=== PATIENT | male | born 1945 | race Caucasian/White ===

== ENCOUNTER 2022-04-03 10:29 | Emergency (ER) | payer MEDICARE, SELFPAY ==
[2022-04-03 10:52] VITALS: BP 132/57; PULSE 69; RESP 16; TEMP 36.2; O2SAT 100
--- NOTE | 2022-04-03 11:21 | ED.URI ---
HPI - URI/Sore Throat General Chief Complaint: Upper Respiratory Infection Stated Complaint: cough, runny nose, watery nose Time Seen by Provider: 04/03/22 11:21 Source: patient, RN notes reviewed and old records reviewed Mode of arrival: ambulatory Limitations: no limitations History of Present Illness HPI Narrative: 76 year old male accompanied by spouse with complaints of 4 days symptoms of cough, runny nose, with some sinus congestion. Patient denies any acute pain or headache, reports that this past has been taking Coricidin cold and flu medication for his symptoms with no acute fevers noted. reports that she had been ill with similar symptoms a few weeks ago. MD elicited complaint: cough, rhinorrhea and nasal congestion Onset (ago): day(s) (4) Pain scale (0-10): 3 Treatments prior to arrival: other (coricidan brand decogestant) Related Data Home Medications Medication Instructions Recorded Confirmed donepezil 10 mg tablet 10 mg PO DAILY 04/03/22 04/03/22 fenofibrate nanocrystallized 145 145 mg PO DAILY 04/03/22 04/03/22 mg tablet glipizide 10 mg tablet 10 mg PO DAILY 04/03/22 04/03/22 losartan 50 mg tablet 50 mg PO DAILY 04/03/22 04/03/22 metformin 1,000 mg tablet 1,000 mg PO DIRECTED 04/03/22 04/03/22 Allergies Allergy/AdvReac Type Severity Reaction Status Date / Time Penicillins Allergy Other Verified 04/03/22 11:15 Review of Systems Review of Systems: CONSTITUTIONAL: Denies malaise, chills, sweats, or fever. EYES: Denies visual changes, redness, or discharge. ENT: Reports rhinorrhea, congestion,no sinus pain, otalgia or sore throat. CARDIOVASCULAR: Denies chest pain, palpitations, or edema. RESPIRATORY: Reports cough.? Denies acute dyspnea. GASTROINTESTINAL: Denies abdominal pain, nausea, vomiting, diarrhea SKIN: Denies rash or itching. MUSCULOSKELETAL: Denies myalgia. NEUROLOGIC: Denies headache. All systems reviewed & are unremarkable except as noted in HPI and below PMFSH Past Medical History Medical History (Updated 04/03/22 @ 20:32 by Roxane Rollins NP) Diabetes Elevated cholesterol Gout Kidney stones Surgical History Surgical History (Updated 04/03/22 @ 20:34 by Roxane Rollins NP) H/O arthroscopy of right knee History of lithotripsy Social History Social History (Updated 04/03/22 @ 20:33 by Roxane Rollins NP) Smoking status: Never smoker Alcohol intake: unknown Substance use type: does not use Living arrangements: with family Gender identity (if verbalized by the patient): Male Comments At time of signature, agree with nursing past medical, surgical, social and family history. There is no relevant family history pertinent to the presenting complaint Exam Narrative: GENERAL: Well-appearing, well-nourished, and in no acute distress. HEAD: Normocephalic EYES: PERRLA, conjunctivae clear ENT: Nares clear, turbinates edematous and erythematous, clear discharge. Mucous membranes moist. TM pearly menendez with dull light reflex bilaterally; no tragal tenderness. Oropharynx erythematous without lesions. Tonsils red enlarged and without exudate, no drooling, no hoarseness, no trismus, uvula midline.some post nasal drainage noted NECK: Supple. lymphadenopathy CHEST: Clear to auscultation, breath sounds equal. No wheezing, rhonchi, rales, or stridor. No respiratory distress, speaks in full sentences. SAO2 100%on room air HEART: Regular rate and rhythm. No murmur heard. SKIN: Warm, dry, no rash. NEURO: Alert and oriented x3. PSYCH: Normal mood and affect Course Course Emergency Course: Patient is aware of diagnosis, understands and agrees to treatment plan.? Anticipatory guidance given.? Patient agrees to follow-up as directed and is aware of reasons to seek care at the emergency department. Portions of this record may have been created with voice recognition software Level of Care: Express Care Visit Vital Signs Vital sign
== END 2022-04-03 12:03 | disposition home or self-care (01) ==
PROVIDERS: Emergency Provider Registered Nurse; PCP Internal Medicine
DX: J02.0 Streptococcal pharyngitis (principal); E11.9 Type 2 diabetes mellitus without complications; E78.00 Pure hypercholesterolemia, unspecified; M10.9 Gout, unspecified; Z79.84 Long term (current) use of oral hypoglycemic drugs
CPT/HCPCS: 87880; 99203; G0463

== ENCOUNTER 2022-05-21 13:31 | Outpatient (CLI) | payer MEDICARE, SELFPAY ==
--- NOTE | ~2022-05-21 | US_ITS ---
EXAMINATION: US art doppler w press LE BI DATE: 05/21/2022 15:13 INDICATION: Peripheral arterial disease. TECHNIQUE: Segmental pressures and plethysmographic and Doppler waveforms of the brachial and lower e xtremity arteries were obtained. COMPARISON: None. FINDINGS: Right and left brachial artery pressures of 138 mm Hg and 140 mm Hg, respectively, are concordant (no rmal difference <= 30 mmHg). The right thigh, below knee, and ankle pressures could not be measured due to inability to cuff occlu de the arteries. The right ankle-brachial index (GIRISH) could not be measured (normal >= 0.9-1.0). The right great toe-brachial index (TBI) is 0.48 (normal >= 0.65). Arterial Doppler waveforms are triphas ic in common femoral artery and superficial femoral artery and biphasic in popliteal artery and at th e ankle. The left thigh, below knee, and ankle pressures could not be measured due to inability to cuff occlud e the arteries. The left GIRISH could not be measured. The left TBI is 0.79. Arterial Doppler waveforms are triphasic in common femoral artery, biphasic in superficial femoral artery, and at least triphasi c in popliteal artery and at the ankle. IMPRESSION: 1. Decreased right TBI and nondiagnostic right GIRISH, consistent with right-sided arterial occlusive di sease. 2. Normal left TBI and nondiagnostic left GIRISH. No significant left-sided arterial occlusive disease. Reviewed, dictated and finalized at location A. IMPRESSION: 1. Decreased right TBI and nondiagnostic right GIRISH, consistent with right-sided arterial occlusive disease. 2. Normal left TBI and nondiagnostic left GIRISH. No significant left-sided arteri al occlusive disease.
== END 2022-05-21 13:32 | disposition home or self-care (01) ==
PROVIDERS: PCP Internal Medicine; Visit Provider Podiatrist Foot & Ankle Surgery
DX: I73.9 Peripheral vascular disease, unspecified (principal)
CPT/HCPCS: 93923

== ENCOUNTER 2022-07-04 23:50 | Observation (INO) | payer MEDICARE, SELFPAY ==
--- NOTE | ~2022-07-04 | CT_ITS ---
EXAMINATION: CT brain wo con DATE: 07/05/2022 01:58 INDICATION: Slurred speech. Weakness. TECHNIQUE: Computed tomography (CT) of the head was performed without intravenous contrast. The mA wa s adjusted according to patient size. Iterative reconstruction technique was employed. The dose-lengt h product was 681.00 mGy-cm. COMPARISON: None FINDINGS: There is diffuse brain volume loss. There is no intracranial hemorrhage, acute infarction, or abnormal intracranial mass lesion. The ventricles are normal in size. There is mild mucosal thicke elaine in the paranasal sinuses. The mastoid air cells are normal. The orbits are normal. IMPRESSION: 1. Normal aging brain. Reviewed, dictated and finalized at location A. IMPRESSION: 1. Normal aging brain.
--- NOTE | ~2022-07-04 | XR_ITS ---
EXAMINATION: XR chest 1V DATE: 07/05/2022 02:09 INDICATION: Weakness. TECHNIQUE: A single frontal view of the chest was obtained. COMPARISON: None. FINDINGS: A calcified right lung nodule is consistent with old granulomatous disease. No pleural effu leanne or pneumothorax. The heart size is normal. IMPRESSION: 1. No acute cardiopulmonary disease. Reviewed, dictated and finalized at location A.
[2022-07-04 23:47] VITALS: BP 165/90; PULSE 74; RESP 15; TEMP 36.4; O2SAT 99
--- NOTE | 2022-07-04 23:53 | ECG_ITS ---
Measurements Intervals Woodrow Rate: 67 P: 9 WI: 179 QRS: 4 QRSD: 122 T: 21 QT: 404 QTc: 427 Interpretive Statements SINUS RHYTHM VENTRICULAR PREMATURE COMPLEX INTRAVENTRICULAR CONDUCTION DELAY EARLY PRECORDIAL R/S TRANSITION BORDERLINE ST ABNORMALITY- ANTEROLAT/HIGH LAT LEADS BASELINE ARTIFACT- I, III, AVL BORDERLINE ECG NO PREVIOUS ECG AVAILABLE FOR COMPARISON Electronically Signed On 07-05-2022 6:42:48 CDT by Pio Bhandari D.O.
[2022-07-04 23:58] LABS: Glucose Point of Care 153 mg/dl (65-105)
[2022-07-05 00:35] LABS: Basophils Absolute Auto 0.1 K/mm3 (0.0-0.1); Basophils Percent Auto 0.9 % (0.2-1.2); Eosinophils Absolute Auto 0.2 K/mm3 (0-0.3); Eosinophils Percent Auto 3.3 % (0-4.4); Hematocrit 39.4 % (42.0-52.0); Immature Granulocyte Absolute 0.04 K/mm3 (0.00-0.031); Immature Granulocyte Percent A 0.6 % (0-0.5); Lymphocytes Absolute Auto 1.21 K/mm3 (0.9-3.2); Lymphocytes Percent Auto 18.3 % (18.3-44.2); Mean Corpuscular Volume 84.9 fl (80-100); Mean Platelet Volume 10.5 fl (7.4-10.4); Monocytes Absolute Auto 0.6 K/mm3 (0.1-0.6); Monocytes Percent Auto 8.9 % (2.6-8.5); Neutrophils Absolute Auto 4.5 K/mm3 (1.3-6.7); Platelet Count Result 177 k/mm3 (150-375); Red Blood Count 4.64 M/mm3 (4.6-6.20); Red Cell Distribution Width 16.1 % (11.5-14.5); White Blood Count 6.6 K/mm3 (4.5-10.0)
[2022-07-05 01:26] LABS: Alanine Aminotransferase 22 U/L (6-50); Albumin Level 4.3 g/dL (3.5-5.1); Alkaline Phosphatase 36 U/L (38-126); Anion Gap 8 mmol/L (8-16); Aspartate Amino Transferase 29 U/L (17-59); Bilirubin,Total 0.6 mg/dL (0.2-1.3); Blood Urea Nitrogen 25 mg/dL (9-20); Calcium 9.3 mg/dL (8.4-10.2); Carbon Dioxide 24 mmol/L (22-30); Chloride 106 mmol/L (98-107); Estimated CRCL calculation 43 ml/min; Estimated Glomerular Filt Rate 50; Glucose 117 mg/dL (65-110); Magnesium 1.3 mg/dL (1.6-2.3); Potassium 3.5 mmol/L (3.4-5.0); Sodium 138 mmol/L (137-145)
[2022-07-05 01:37] LABS: Troponin I < 0.012 ng/mL (0.000-0.034)
--- NOTE | 2022-07-05 02:28 | ED.GENADULT ---
HPI - General Adult General Chief complaint: Fall Stated complaint: FALL, HYPOGLYCEMIA Time Seen by Provider: 07/05/22 00:15 History of Present Illness HPI narrative: Patient 76-year-old gentleman presents emerged department with chief complaint of hypoglycemia. The family noticed that he was not acting his normal self and noticed that there was a facial droop they called EMS when EMS arrived his blood sugar was in the 40s. The patient does have history of diabetes but is only on oral hypoglycemics. Patient is not on insulin. Patient was given dextrose by EMS and blood sugar has come up and the patient is back to his baseline. The patient has no chest pain or shortness of breath currently has no complaints Related Data Home Medications Medication Instructions Recorded Confirmed donepezil 10 mg tablet 10 mg PO DAILY 04/03/22 04/03/22 fenofibrate nanocrystallized 145 145 mg PO DAILY 04/03/22 04/03/22 mg tablet glipizide 10 mg tablet 10 mg PO DAILY 04/03/22 04/03/22 losartan 50 mg tablet 50 mg PO DAILY 04/03/22 04/03/22 metformin 1,000 mg tablet 1,000 mg PO DIRECTED 04/03/22 04/03/22 Allergies Allergy/AdvReac Type Severity Reaction Status Date / Time Penicillins Allergy Other Verified 07/04/22 23:56 Review of Systems Review of Systems: A 10 system review of systems was completed on the patient and is negative except for what is stated in the HPI. Nursing and ancillary documentation was reviewed. PMFSH Past Medical History Medical History Diabetes Elevated cholesterol Gout Kidney stones Surgical History Surgical History H/O arthroscopy of right knee History of lithotripsy Social History Social History Smoking status: Never smoker Alcohol intake: unknown Substance use type: does not use Living arrangements: with family Gender identity (if verbalized by the patient): Male Exam Narrative: GENERAL: Well-appearing, well-nourished, and in no acute distress. HEAD: Normocephalic, atraumatic. EYES: PERRLA and EOMI. ENT: Nares clear, no rhinorrhea or epistaxis. Mucous membranes moist. NECK: Supple. CHEST: Clear to auscultation. No respiratory distress. HEART: Regular rate and rhythm. No murmur heard. Normal peripheral pulses. ABDOMEN: Soft, nontender, nondistended, normal active bowel sounds. EXTREMITIES: Normal range of motion. No edema. SKIN: Warm, dry, no rash. NEURO: No focal deficits. Alert and oriented x3. PSYCH: Normal mood and affect. Course Course Emergency Course: Differential diagnosis includes CVA, electrolyte abnormality, infection, CVA/TIA Patient currently has an NIH of 0 and is back to his baseline neurological status. Patient was hypoglycemic at the time of symptoms symptoms consistent with hypoglycemia as the ultimate cause for his initial weakness. The patient is not on insulin and is only on oral hypoglycemics including a sulfonylurea. Due to the half-life of the sulfonylurea the patient's case will be discussed with the hospitalist for admission. Laboratory studies were obtained which showed a CBC with a white count of 6.6 hemoglobin was 13.0 electrolytes showed a creatinine of 1.4 magnesium of 1.3 Vital Signs Vital signs: Vital Signs Temperature 36.4 C L 07/04/22 23:47 Pulse Rate 74 07/04/22 23:47 Respiratory Rate 15 07/04/22 23:47 Blood Pressure 165/90 H 07/04/22 23:47 Pulse Oximetry 99 07/04/22 23:47 Oxygen Delivery Room Air 07/04/22 23:47 Temperature 36.4 C L 07/04/22 23:47 Pulse Rate 97 07/05/22 04:11 Respiratory Rate 17 07/05/22 04:11 Blood Pressure 147/64 H 07/05/22 04:11 Pulse Oximetry 97 07/05/22 04:11 Oxygen Delivery Room Air 07/04/22 23:47 Medical Decision Making MDM Narrative Medical decision making narrati
[2022-07-05 02:53] LABS: Glucose Point of Care 53 mg/dl (65-105)
[2022-07-05 03:02] LABS: Appearance Urine Clear (Clear); Bacteria Urine None Seen /hpf; Bilirubin Urine Negative (Negative); Blood Urine Negative (Negative); Color Urine Yellow (Yellow); Glucose Urine UA Negative (Negative); Ketones Urine Negative (Negative); Leukocyte Esterase Ur Negative LEU/UL (Negative); Nitrate Urine Negative (Negative); Non Pathogenic Casts 0-2; Protein Urine Trace mg/dL (Negative); RBC Urine 0-2 /hpf (0-2); Specific Grav Ur 1.018 (1.001-1.035); Squamous Epithelial Cell Urine None seen /hpf (Few); Urobilinogen Urine 0.2 mg/dL (<2.0); WBC Urine 0-5 /hpf; pH Urine 5.5 (5.0-9.0)
[2022-07-05] MEDS: MAGNESIUM SULF 2 GM/WATER 50ML 2 GM/50 ML BAG IVPB (03:13)
[2022-07-05 03:17] LABS: Add Urine Microscopic? NO
[2022-07-05] MEDS: DEXTROSE 5%/0.9% SOD CHL 1,000 ML 100 ML IV CONT ×2 (03:19→16:58)
[2022-07-05 04:11] VITALS: BP 147/64; PULSE 97; RESP 17; O2SAT 97
--- NOTE | 2022-07-05 04:25 | PM.IMHP ---
H&P: HPI History of Present Illness Date/Time: 07/05/22 04:25 Chief Complaint: Altered mental status Narrative: This is a 76-year-old male with past medical history significant for type diabetes mellitus, controlled with oral agents, hypertension, dyslipidemia. Patient was brought to the emergency room via EMS due to altered mental status fall and facial droop upon EMS arrival patient was found to have low blood sugar in the 40s, patient was given dextrose which brought his blood sugar to normal levels. Upon arrival to emergency room patient had another episode of hypoglycemia. At the present time patient feels that his back to his baseline he has been in his usual state of health up until this point, denies any nausea, vomiting, diarrhea, abdominal pain, fevers, rigors, chills, cough, no focal sensorimotor deficit. It was noted the patient's facial droop improved after correction of sugar. Preliminary workup CT of the head And chest x-ray was reported as: EXAMINATION: XR chest 1V DATE: 07/05/2022 02:09 INDICATION: Weakness. TECHNIQUE: A single frontal view of the chest was obtained. COMPARISON: None. FINDINGS: A calcified right lung nodule is consistent with old granulomatous disease. No pleural effusion or pneumothorax. The heart size is normal. IMPRESSION: 1. No acute cardiopulmonary disease. EXAMINATION: CT brain wo con DATE: 07/05/2022 01:58 INDICATION: Slurred speech. Weakness. TECHNIQUE: Computed tomography (CT) of the head was performed without intravenous contrast. The mA was adjusted according to patient size. Iterative reconstruction technique was employed. The dose-length product was 681.00 mGy-cm. COMPARISON: None FINDINGS: There is diffuse brain volume loss. There is no intracranial hemorrhage, acute infarction, or abnormal intracranial mass lesion. The ventricles are normal in size. There is mild mucosal thickening in the paranasal sinuses. The mastoid air cells are normal. The orbits are normal. IMPRESSION: 1. Normal aging brain. Review of Systems Review of Systems: Fall, altered mental status, facial droop, hypoglycemia Constitutional: Constitutional: Denies chills, Denies fatigue, Denies fever(s), Denies lethargy, Denies malaise, Denies night sweats, Denies poor appetite and Denies weakness Eyes: Eyes: Denies change in vision ENT: Denies dysphagia and Denies odynophagia Cardiovascular: Cardiovascular: Denies chest pain, Denies irregular heart rhythm, Denies leg edema, Denies palpitations and Denies dyspnea Respiratory: Respiratory: Denies cough and Denies excessive phlegm production Gastrointestinal: Gastrointestinal: Denies abdominal pain, Denies dyspepsia, Denies heartburn, Denies diarrhea, Denies nausea and Denies vomiting Genitourinary: Genitourinary: Denies dysuria Musculoskeletal: Musculoskeletal: Denies joint swelling and Denies muscle weakness Integumentary/Breasts: Skin/Breast: Denies rash Neurologic: Denies focal weakness and Denies Sensory deficit (Neuro) Psychiatric: Psychiatric: Reports no additional psychiatric complaints and Reports as per HPI Endocrine: Endocrine: Denies flushing, Denies heat intolerance, Denies polyphagia, Denies polydipsia and Denies palpitations Hematologic/Lymphatic: Hematologic/Lymphatic: Reports no additional hematologic/lymphatic complaints and Reports as per HPI Allergic/Immunologic: Allergic/Immunologic: Reports no additional allergic/immunologic complaints and Reports as per HPI PMFSH Past Medical History Medical History Diabetes Elevated cholesterol Gout Kidney stones Surgical History Surgical History H/O arthroscopy of right knee History of lithotripsy Social History Social History Smoking status: Never smoker Alcohol intake: molina
[2022-07-05 05:28] LABS: Glucose Point of Care 119 mg/dl (65-105)
[2022-07-05 05:31] LABS: Troponin I < 0.012 ng/mL (0.000-0.034)
--- NOTE | 2022-07-05 05:48 | ADMGEN ---
This patient, Conner Adams, was admitted to [facility] Surg Room 320-01. Patient/family oriented to hospital policies and general routines including ID bracelet, bed and alarms, visiting hours, pain management, procedures, bathroom and other care routines, personal items, smoking policy, room service/diet, and visiting hours. Information on how to activate the Rapid Response Team has been discussed. Patient/Family are encouraged to report perceived risks to care and to ask questions if they do not understand what they are told or what they should do.
[2022-07-05 05:52] VITALS: BMI 30.9
[2022-07-05 06:00] VITALS: BP 146/64; PULSE 72; RESP 14; TEMP 36.4; O2SAT 99
[2022-07-05 08:21] LABS: Glucose Point of Care 73 mg/dl (65-105)
[2022-07-05 10:17] VITALS: BMI 30.9
--- NOTE | 2022-07-05 10:20 | PM.IMPN ---
Progress Note: A&P Assessment and Plan (1) Hypoglycemia: Code(s): E16.2 - Hypoglycemia, unspecified Status: Acute Assessment and Plan: Place in observation Hold glipizide and metformin Currently on D5 half-normal saline Continue to monitor (2) Diabetes: Code(s): E11.9 - Type 2 diabetes mellitus without complications Status: Acute Assessment and Plan: Holding glipizide and metformin (3) Gout: Code(s): M10.9 - Gout, unspecified Status: Acute Assessment and Plan: Stable (4) Fall: Code(s): W19.XXXA - Unspecified fall, initial encounter Status: Acute Assessment and Plan: Mechanical fall Likely secondary to hypoglycemic episode Fall precautions (5) Altered mental status: Code(s): R41.82 - Altered mental status, unspecified Status: Acute Assessment and Plan: Resolved Subjective Date/time seen: 07/05/22 10:20 Interval history: No complaints Exam Narrative: Patient is laying in a stretcher Const: General: cooperative, comfortable, no acute distress, well developed, alert, awake, average body habitus and other (Well-appearing) Nutritional Appearance: average body habitus Orientation/consciousness: patient oriented x3 HENMT: Head: normal to inspection, normocephalic and atraumatic Ears: hearing grossly normal bilaterally Face/Nose/Sinus: normal facial exam Face and sinus: normal facial exam Eyes: General: appearance normal, both eyes and all related structures Pupils: Equal, round and reactive pupils present EOM: EOMs intact bilaterally Neck: Neck: full ROM, no lymphadenopathy and no JVD Thyroid: thyroid normal Lymphatic: no lymphadenopathy noted Resp: Effort & Inspection: normal respiratory effort and able to speak in complete sentences Auscultation: clear to auscultation bilaterally Cardio: Jugular venous distension: no JVD Rate: regular rate Rhythm: regular rhythm Heart sounds: S1 normal heart sound present and S2 normal heart sound present : General: Yes deferred Skin: Rashes: no rashes Wounds: no wounds Neuro: General: patient oriented x3, CN's II-XI intact bilaterally and Unable to assess gait Cranial nerves: Yes CN's II-XII intact bilaterally and Yes Equal, round and reactive pupils present Cognition (Neuro): normal cognition Speech: normal speech Gait exam (Neuro): Normal gait present and Unable to assess gait Motor exam (neuro): 5/5 motor strength present throughout Sensory Exam: No Sensory deficit (Neuro) Extrem: General: normal to inspection, full ROM, no joint enlargement and no pedal edema Objective Data Vital Signs Vital Signs: Vital Signs - 24 hr 07/04/22 23:47 07/05/22 04:11 07/05/22 06:00 Temperature 97.5 F L 97.6 F Pulse Rate 74 97 72 Respiratory Rate 15 17 14 Blood Pressure 165/90 H 147/64 H 146/64 H Pulse Oximetry 99 97 99 Oxygen Delivery Room Air Intake/Output Intake/Output: Intake & Output 07/02/22 07/03/22 07/04/22 07/05/22 23:59 23:59 23:59 23:59 Intake Total 414 Balance 414 Meds/Results Medications: Active Medications Generic Name Dose Route Start Last Admin Trade Name Freq PRN Reason Stop Dose Admin Dextrose 12.5 gm 07/05/22 04:37 Dextrose 50% 25 Gm/50 Ml Syringe IV PUSH PRN PRN Hypoglycemia Protocol Donepezil HCl 10 mg 07/05/22 21:00 Donepezil Hcl 10 Mg Tablet PO HS JITENDRA Fenofibrate 145 mg 07/05/22 09:00 Fenofibrate Nanocrystallized 145 Mg Tablet PO DAILY JITENDRA Glucagon 1 mg 07/05/22 04:37 Glucagon For Inj 1 Mg Vial IM PRN PRN Hypoglycemia Protocol Glucose 15 gm 07/05/22 04:37 Glucose Oral Gel 15 Gm Of Glucse In 37.5 Gm Tube PO PRN PRN Hypoglycemia Protocol Dextrose/Sodium Chloride 1,000 mls @ 100 mls/hr 07/05/22 03:00 07/05/22 03:19 Dextrose 5% Sodium Chloride 0.9% IV CONT 100 mls/hr .Q10H JITENDRA Administration Dextrose 1,000
[2022-07-05] MEDS: LOSARTAN POTASSIUM 50 MG TABLET PO (10:40)
[2022-07-05] MEDS: FENOFIBRATE NANOCRYSTALLIZED 145 MG TABLET PO (10:40)
[2022-07-05] MEDS: metFORMIN HCL 500 MG TABLET 1000 MG PO ×2 (10:40→18:57)
[2022-07-05 12:03] LABS: Glucose Point of Care 114 mg/dl (65-105)
[2022-07-05 13:29] VITALS: BMI 30.9
[2022-07-05 14:00] VITALS: BP 139/66; PULSE 68; RESP 18; TEMP 36.1; O2SAT 99
[2022-07-05 18:45] LABS: Glucose Point of Care 204 mg/dl (65-105)
[2022-07-05 20:00] VITALS: PULSE 68; RESP 18; O2SAT 99
[2022-07-05] MEDS: DONEPEZIL HCL 10 MG TABLET PO (20:19)
--- NOTE | 2022-07-05 20:35 | PC.NURSE ---
Pt took out IV this morning. Pt has two skin tears on left hand. Mepelex was placed on hand. Pt has hx of dementia. Pt is stand by assist with ambulation. Pt has been compliant with care. Pt was monitored for any changes in status this shift.
[2022-07-05 22:00] VITALS: BP 148/64; PULSE 71; RESP 18; TEMP 35.9; O2SAT 96
[2022-07-05 23:28] LABS: Glucose Point of Care 146 mg/dl (65-105)
[2022-07-06 01:57] LABS: Glucose Point of Care 100 mg/dl (65-105)
[2022-07-06] MEDS: DEXTROSE 5%/0.9% SOD CHL 1,000 ML 100 ML IV CONT (03:00)
[2022-07-06 04:44] LABS: Glucose Point of Care 93 mg/dl (65-105)
[2022-07-06 05:58] VITALS: BP 167/61; PULSE 65; RESP 18; TEMP 35.9; O2SAT 99
[2022-07-06 06:43] LABS: Basophils Absolute Auto 0.1 K/mm3 (0.0-0.1); Basophils Percent Auto 1.1 % (0.2-1.2); Eosinophils Absolute Auto 0.2 K/mm3 (0-0.3); Eosinophils Percent Auto 4.6 % (0-4.4); Hematocrit 39.2 % (42.0-52.0); Hemoglobin 12.9 g/dL (14.0-18.0); Immature Granulocyte Absolute 0.03 K/mm3 (0.00-0.031); Immature Granulocyte Percent A 0.6 % (0-0.5); Lymphocytes Absolute Auto 0.96 K/mm3 (0.9-3.2); Lymphocytes Percent Auto 20.2 % (18.3-44.2); Mean Corpuscular HGB Conc 32.9 g/dl (32-36); Mean Corpuscular Hemoglobin 27.6 pg (26-34); Mean Corpuscular Volume 83.9 fl (80-100); Monocytes Absolute Auto 0.4 K/mm3 (0.1-0.6); Monocytes Percent Auto 9.1 % (2.6-8.5); Neutrophils Absolute Auto 3.1 K/mm3 (1.3-6.7); Neutrophils Percent Auto 64.4 % (45.5-73.1); Platelet Count Result 188 k/mm3 (150-375); Red Blood Count 4.67 M/mm3 (4.6-6.20); Red Cell Distribution Width 15.7 % (11.5-14.5); White Blood Count 4.8 K/mm3 (4.5-10.0)
[2022-07-06 06:53] LABS: Anion Gap 9 mmol/L (8-16); Blood Urea Nitrogen 14 mg/dL (9-20); Calcium 8.7 mg/dL (8.4-10.2); Carbon Dioxide 23 mmol/L (22-30); Chloride 108 mmol/L (98-107); Estimated CRCL calculation 74 ml/min; Estimated Glomerular Filt Rate > 60; Glucose 133 mg/dL (65-110); Potassium 4.3 mmol/L (3.4-5.0); Sodium 140 mmol/L (137-145)
[2022-07-06 07:43] LABS: Glucose Point of Care 138 mg/dl (65-105)
[2022-07-06] MEDS: metFORMIN HCL 500 MG TABLET 1000 MG PO (08:00)
[2022-07-06] MEDS: FENOFIBRATE NANOCRYSTALLIZED 145 MG TABLET PO (08:00)
[2022-07-06] MEDS: LOSARTAN POTASSIUM 50 MG TABLET PO (08:00)
[2022-07-06 11:19] LABS: Glucose Point of Care 199 mg/dl (65-105)
--- NOTE | 2022-07-06 11:36 | PM.DS ---
DS: Admitting Diagnosis Discharge Date July 06, 2022 Admitting Diagnosis hypoglycemia DS: Discharge Diagnosis Discharge Diagnosis (1) Hypoglycemia: Code(s): E16.2 - Hypoglycemia, unspecified Status: Acute Assessment and Plan: Place in observation Hold glipizide and metformin Currently on D5 half-normal saline Continue to monitor (2) Diabetes: Code(s): E11.9 - Type 2 diabetes mellitus without complications Status: Acute Assessment and Plan: Holding glipizide and metformin (3) Gout: Code(s): M10.9 - Gout, unspecified Status: Acute Assessment and Plan: Stable (4) Fall: Code(s): W19.XXXA - Unspecified fall, initial encounter Status: Acute Assessment and Plan: Mechanical fall Likely secondary to hypoglycemic episode Fall precautions (5) Altered mental status: Code(s): R41.82 - Altered mental status, unspecified Status: Acute Assessment and Plan: Resolved DS: Summary Hospital Course Hospital Course: admitted for hypoglycemia, secondary to glipizide at home. Medications not on home med list the patient apparently does take this at home per family. This was stopped and blood sugars are appropriate he can be discharged. Time Spent with Patient Time attestation: Total time spent providing and/or coordinating discharge services: Exam Narrative: Patient is laying in a stretcher Const: General: cooperative, comfortable, no acute distress, well developed, alert, awake, average body habitus and other (Well-appearing) Nutritional Appearance: average body habitus Orientation/consciousness: patient oriented x3 HENMT: Head: normal to inspection, normocephalic and atraumatic Ears: hearing grossly normal bilaterally Face/Nose/Sinus: normal facial exam Face and sinus: normal facial exam Eyes: General: appearance normal, both eyes and all related structures Pupils: Equal, round and reactive pupils present EOM: EOMs intact bilaterally Neck: Neck: full ROM, no lymphadenopathy and no JVD Thyroid: thyroid normal Lymphatic: no lymphadenopathy noted Resp: Effort & Inspection: normal respiratory effort and able to speak in complete sentences Auscultation: clear to auscultation bilaterally Cardio: Jugular venous distension: no JVD Rate: regular rate Rhythm: regular rhythm Heart sounds: S1 normal heart sound present and S2 normal heart sound present : General: Yes deferred Skin: Rashes: no rashes Wounds: no wounds Neuro: General: patient oriented x3, CN's II-XI intact bilaterally and Unable to assess gait Cranial nerves: Yes CN's II-XII intact bilaterally and Yes Equal, round and reactive pupils present Cognition (Neuro): normal cognition Speech: normal speech Gait exam (Neuro): Normal gait present and Unable to assess gait Motor exam (neuro): 5/5 motor strength present throughout Sensory Exam: No Sensory deficit (Neuro) Extrem: General: normal to inspection, full ROM, no joint enlargement and no pedal edema DS: Data Data Completed and Pending Labs on day of discharge: Labs from last 24 hours 07/06/22 07/06/22 07/06/22 11:10 07:24 06:20 WBC 4.8 RBC 4.67 Hgb 12.9 L Hct 39.2 L MCV 83.9 MCH 27.6 MCHC 32.9 RDW 15.7 H Plt Count 188 MPV 11.0 H Immature Gran % (Auto) 0.6 H Neut % (Auto) 64.4 Lymph % (Auto) 20.2 Barbour % (Auto) 9.1 H Eos % (Auto) 4.6 H Baso % (Auto) 1.1 Lymph # (Auto) 0.96 [place]bour # (Auto) 0.4 Eos # (Auto) 0.2 Baso # (Auto) 0.1 Abs Immat Gran (auto) 0.03 Absolute Neuts (auto) 3.1 Absolute Nucleated RBC 0.0 Nucleated RBC % 0.0 Sodium 140 Potassium 4.3 Chloride 108 H Carbon Dioxide 23 Anion Gap 9 BUN 14 D Creatinine 0.90 Estim Creat Clear Calc 74 Estimated GFR > 60 Glucose 133 H POC Capillary Glucose 199 H 138 H Calcium 8.7 07/06/22 07/06/22 07/05/22 04:41 00:29 21:33
[2022-07-06 13:37] VITALS: BP 130/75; PULSE 86; RESP 20; TEMP 36.2; O2SAT 97
[2022-07-06 15:30] LABS: Glucose Point of Care 148 mg/dl (65-105)
== END 2022-07-06 16:46 | disposition home or self-care (01) ==
LOC: ANHED 07-05 04:36 → ANH3MEDSUR 07-05 05:26
PROVIDERS: Admitting Provider Internal Medicine; Emergency Provider Emergency Medicine; PCP Internal Medicine; Visit Provider Chiropractor
DX: E11.649 Type 2 diabetes mellitus with hypoglycemia without coma (principal); M10.9 Gout, unspecified; W19.XXXA Unspecified fall, initial encounter; R41.82 Altered mental status, unspecified; I10 Essential (primary) hypertension; E78.5 Hyperlipidemia, unspecified; R53.1 Weakness; Z79.84 Long term (current) use of oral hypoglycemic drugs; Z79.899 Other long term (current) drug therapy
CPT/HCPCS: 36415; 70450; 71045; 80048; 80053; 81003; 82948; 83735; 84484; 85025; 93005; 96361; 96365; 99285; A9270; G0378; J3475; J7042

== ENCOUNTER 2022-08-17 09:06 | Emergency (ER) | payer MEDICARE, SELFPAY ==
--- NOTE | 2022-08-17 09:08 | ED.GENADULT ---
HPI - General Adult General Chief complaint: Ear Stated complaint: FLUID IN BOTH EARS Time Seen by Provider: 08/17/22 09:25 Source: patient, RN notes reviewed and old records reviewed Mode of arrival: ambulatory Limitations: no limitations History of Present Illness HPI narrative: 76-year-old male presents to the [facility] with concerns for fluid draining from his ears Every morning for the last 3 mornings. Patient's reports that it only happens in the morning, no drainage during the day. States that she saw a Q-tips sitting on the nightstand yesterday with blood on it. denies any upper respiratory symptoms recently. Denies fevers. Denies headaches. Onset (ago): day(s) (3) Treatments prior to arrival: none Related Data Home Medications Medication Instructions Recorded Confirmed donepezil 10 mg tablet 10 mg PO HS 04/03/22 08/17/22 fenofibrate nanocrystallized 145 145 mg PO DAILY 04/03/22 08/17/22 mg tablet losartan 50 mg tablet 50 mg PO DAILY 04/03/22 08/17/22 metformin 1,000 mg tablet 1,000 mg PO BID 04/03/22 08/17/22 doxycycline monohydrate 100 mg 100 mg PO BID 07/05/22 08/17/22 capsule Allergies Allergy/AdvReac Type Severity Reaction Status Date / Time Penicillins Allergy Other Verified 08/17/22 09:19 Sulfa (Sulfonamide Allergy Nausea and Verified 08/17/22 09:19 Antibiotics) Vomiting Review of Systems Review of Systems: All systems reviewed & are unremarkable except as noted in HPI and below Constitutional: Constitutional: Reports no additional constitutional complaints Eyes: Eyes: Reports no additional eye complaints ENT: Reports as per HPI and Reports ear discharge Cardiovascular: Cardiovascular: Reports no additional cardiovascular complaints, Denies chest pain and Denies dyspnea Respiratory: Respiratory: Reports no additional respiratory complaints, Denies chest congestion, Denies cough and Denies dyspnea Gastrointestinal: Gastrointestinal: Reports no additional gastrointestinal complaints, Denies abdominal pain, Denies nausea and Denies vomiting Musculoskeletal: Musculoskeletal: Reports no additional musculoskeletal complaints Integumentary/Breasts: Skin/Breast: Reports system reviewed and no additional complaints, except as docu Neurologic: Reports system reviewed and no additional complaints, except as documented Psychiatric: Psychiatric: Reports no additional psychiatric complaints Allergic/Immunologic: Allergic/Immunologic: Reports no additional allergic/immunologic complaints PMFSH Past Medical History Medical History Diabetes Elevated cholesterol Gout Kidney stones Surgical History Surgical History H/O arthroscopy of right knee History of lithotripsy Social History Social History Smoking status: Never smoker Alcohol intake: never Substance use: never Substance use type: does not use Lack of Transportation: No Lack of Food: Never True Current Housing: I Have Housing Concerned About Future Housing: No Difficulty Paying Gas/Electric Bills: No Difficulty Paying for Meds: No Currently Unemployed: No Education: Associate Degree Difficulty w/ Childcare or Family Care: No Living arrangements: with family Gender identity (if verbalized by the patient): Male Spiritual care concerns: No Comments At the time of my signature, I reviewed and agree with the nursing past medical, surgical, social, and family history. There is no relevant family history pertinent to the patient complaint. Exam Const: General: cooperative, healthy appearing, comfortable, no acute distress, well developed, alert and well nourished Nutritional Appearance: well nourished Orientation/consciousness: patient oriented x3 Limitations: no limitations HENMT: Head: normal to inspection Ears: hearing gr
[2022-08-17 09:13] VITALS: BP 128/91; PULSE 64; RESP 16; TEMP 35.9; O2SAT 99
== END 2022-08-17 09:35 | disposition home or self-care (01) ==
PROVIDERS: Emergency Provider Nurse Practitioner; PCP Internal Medicine
DX: S00.411A Abrasion of right ear, initial encounter (principal); X58.XXXA Exposure to other specified factors, initial encounter; E11.9 Type 2 diabetes mellitus without complications; E78.00 Pure hypercholesterolemia, unspecified; M10.9 Gout, unspecified
CPT/HCPCS: 99213; G0463

== ENCOUNTER 2022-12-23 08:36 | Emergency (ER) | payer MEDICARE, SELFPAY ==
--- NOTE | 2022-12-23 08:43 | ED.URI ---
HPI - URI/Sore Throat General Chief Complaint: Upper Respiratory Infection Stated Complaint: cough,runny nose,headache,body aches Time Seen by Provider: 12/23/22 08:43 Source: patient Mode of arrival: ambulatory Limitations: no limitations History of Present Illness HPI Narrative: Patient is a 77-year-old male who presents with 5 days of body aches, congestion, headache and cough. Patient has been taking Tylenol/Advil combo for body aches and headache with mild relief. Unsure if he ever had a fever. Patient has not taken any other medication for symptomatic relief due to not wanting to cause interactions with donepezil. Related Data Home Medications Medication Instructions Recorded Confirmed donepezil 10 mg tablet 10 mg PO HS 04/03/22 12/23/22 fenofibrate nanocrystallized 145 145 mg PO DAILY 04/03/22 12/23/22 mg tablet losartan 50 mg tablet 50 mg PO DAILY 04/03/22 12/23/22 metformin 1,000 mg tablet 1,000 mg PO BID 04/03/22 12/23/22 cholecalciferol (vitamin D3) 25 25 mcg PO DAILY 12/23/22 12/23/22 mcg (1,000 unit) capsule (Vitamin D3) cyanocobalamin (vitamin B-12) 2,500 mcg sublingual DAILY 12/23/22 12/23/22 2,500 mcg sublingual tablet (Vitamin B-12) Allergies Allergy/AdvReac Type Severity Reaction Status Date / Time Penicillins Allergy Other Verified 12/23/22 08:55 Sulfa (Sulfonamide Allergy Nausea and Verified 12/23/22 08:55 Antibiotics) Vomiting Review of Systems Review of Systems: All systems reviewed & are unremarkable except as noted in HPI and below Constitutional: Constitutional: Reports body ache(s), Denies chills, Denies fatigue, Denies fever(s), Reports headache(s), Denies malaise and Denies weakness Eyes: Eyes: Denies blurry vision, Denies itchy eyes and Denies loss of vision ENT: Denies otalgia, Denies headache(s), Reports nasal congestion, Denies sinus pain and Denies sore throat Cardiovascular: Cardiovascular: Denies chest pain, Denies irregular heart rhythm and Denies dyspnea Respiratory: Respiratory: Reports cough and Denies dyspnea Gastrointestinal: Gastrointestinal: Denies abdominal pain, Denies diarrhea, Denies nausea and Denies vomiting Musculoskeletal: Musculoskeletal: Denies back pain, Denies myalgias and Denies arthralgias Integumentary/Breasts: Skin/Breast: Denies pruritus and Denies rash Neurologic: Denies headache(s), Denies loss of vision and Denies weakness Psychiatric: Psychiatric: Reports no additional psychiatric complaints Endocrine: Endocrine: Denies fatigue Allergic/Immunologic: Allergic/Immunologic: Denies itchy eyes PMFSH Past Medical History Medical History Diabetes Elevated cholesterol Gout Kidney stones Surgical History Surgical History H/O arthroscopy of right knee History of lithotripsy Social History Social History Smoking status: Never smoker Alcohol intake: never Substance use: never Substance use type: does not use Lack of Transportation: No Lack of Food: Never True Current Housing: I Have Housing Concerned About Future Housing: No Difficulty Paying Gas/Electric Bills: No Difficulty Paying for Meds: No Currently Unemployed: No Education: Associate Degree Difficulty w/ Childcare or Family Care: No Living arrangements: with family Gender identity (if verbalized by the patient): Male Spiritual care concerns: No Comments At time of signature, agree with nursing past medical, surgical, social and family history. There is no relevant family history pertinent to the presenting complaint. Exam Const: General: cooperative, healthy appearing, comfortable, no acute distress and well nourished Nutritional Appearance: well nourished Orientation/consciousness: patient oriented x3 Limitations: no limitations HENMT: Head: normal to inspe
[2022-12-23 08:58] VITALS: BP 168/60; PULSE 65; RESP 16; TEMP 35.7; O2SAT 100
== END 2022-12-23 09:40 | disposition home or self-care (01) ==
PROVIDERS: Emergency Provider Nurse Practitioner Family; PCP Internal Medicine
DX: J10.1 Influenza due to other identified influenza virus with other respiratory manifestations (principal); Z20.822 Contact with and (suspected) exposure to COVID-19; E11.9 Type 2 diabetes mellitus without complications; Z79.84 Long term (current) use of oral hypoglycemic drugs; E78.00 Pure hypercholesterolemia, unspecified; M10.9 Gout, unspecified
CPT/HCPCS: 87426; 87804; 99213; C9803; G0463

== ENCOUNTER 2023-12-12 00:56 | Emergency (ER) | payer MEDICARE, SELFPAY ==
[2023-12-12] VITALS (13 sets, daily range): BP systolic 145–189; BP diastolic 57–71; PULSE 62–68; RESP 12–22; TEMP 36.4; O2SAT 98–100
--- NOTE | ~2023-12-12 | XR_ITS ---
Portable chest x-ray Comparison: 07/05/2022 Clinical History: Chest pain Findings: Lungs are clear, without focal consolidation or pleural effusion. Cardiomediastinal silho uette is stable. Bones and soft tissues are unremarkable. Impression: Clear lungs. Reviewed, dictated and finalized at location . Impression: Clear lungs.
--- NOTE | 2023-12-12 00:57 | ECG_ITS ---
Test Date: 2023-12-12 01:04:24 Measurements Intervals [place] Rate: 65 P: 27 SD: 180 QRS: 19 QRSD: 110 T: 40 QT: 402 QTc: 420 Interpretive Statements SINUS RHYTHM No previous ECG available for comparison Electronically Signed On 12-12-2023 14:30:37 CDT by Raj Posadas M.D.
[2023-12-12 01:20] LABS: Basophils Absolute Auto 0.1 K/mm3 (0.0-0.1); Basophils Percent Auto 1.5 % (0.2-1.2); Eosinophils Absolute Auto 0.3 K/mm3 (0-0.3); Eosinophils Percent Auto 4.6 % (0-4.4); Hematocrit 38.4 % (42.0-52.0); Hemoglobin 12.8 g/dL (14.0-18.0); Immature Granulocyte Absolute 0.07 K/mm3 (0.00-0.031); Immature Granulocyte Percent A 1.1 % (0-0.5); Lymphocytes Absolute Auto 1.63 K/mm3 (0.9-3.2); Lymphocytes Percent Auto 24.7 % (18.3-44.2); Mean Corpuscular HGB Conc 33.3 g/dl (32-36); Mean Corpuscular Hemoglobin 29.6 pg (26-34); Mean Corpuscular Volume 88.7 fl (80-100); Mean Platelet Volume 10.7 fl (7.4-10.4); Monocytes Absolute Auto 0.5 K/mm3 (0.1-0.6); Monocytes Percent Auto 7.1 % (2.6-8.5); Platelet Count Result 211 k/mm3 (150-375); Red Blood Count 4.33 M/mm3 (4.6-6.20); Red Cell Distribution Width 15.3 % (11.5-14.5); White Blood Count 6.6 K/mm3 (4.5-10.0)
[2023-12-12 01:29] LABS: Alanine Aminotransferase 13 U/L (6-50); Albumin Level 4.4 g/dL (3.5-5.1); Alkaline Phosphatase 55 U/L (38-126); Anion Gap 9 mmol/L (4-12); Aspartate Amino Transferase 22 U/L (17-59); Bilirubin,Total 0.7 mg/dL (0.2-1.3); Blood Urea Nitrogen 25 mg/dL (9-20); Calcium 9.8 mg/dL (8.4-10.2); Carbon Dioxide 29 mmol/L (22-30); Chloride 103 mmol/L (98-107); Estimated Glomerular Filt Rate 59; Glucose 137 mg/dL (65-110); INR 0.9; Lipase 89 U/L (23-300); Potassium 3.7 mmol/L (3.4-5.0); Prothrombin Time 12.7 Seconds (11.1-14.7); Sodium 141 mmol/L (137-145)
[2023-12-12 01:30] LABS: Partial Thromboplastin Time 29.5 Seconds (22.3-36.8)
[2023-12-12 01:40] LABS: Troponin I < 0.012 ng/mL (0.000-0.034)
--- NOTE | 2023-12-12 03:25 | ED.CHESTPAIN ---
HPI - Chest Pain General Chief Complaint: Chest Pain Stated Complaint: chest pain Time Seen by Provider: 12/12/23 02:03 History of Present Illness HPI narrative: 78-year-old male with a past medical history of Parkinson's dementia, hypertension. Today patient presents to the emergency department with a chief complaint of sudden onset chest discomfort and shortness of breath. This has since resolved prior to arrival to the emergency department. He states that he was in bed with his when he started feeling this way. Denies any jaw pain, chest pain, shortness breath, nausea, vomiting, diarrhea, constipation. He was otherwise in his normal state of health. Denies any trauma, recent injuries, illnesses or new medication changes. Related Data Home Medications Medication Instructions Recorded Confirmed donepezil 10 mg tablet 10 mg PO HS 04/03/22 12/23/22 fenofibrate nanocrystallized 145 145 mg PO DAILY 04/03/22 12/23/22 mg tablet losartan 50 mg tablet 50 mg PO DAILY 04/03/22 12/23/22 metformin 1,000 mg tablet 1,000 mg PO BID 04/03/22 12/23/22 cholecalciferol (vitamin D3) 25 25 mcg PO DAILY 12/23/22 12/23/22 mcg (1,000 unit) capsule (Vitamin D3) cyanocobalamin (vitamin B-12) 2,500 mcg sublingual DAILY 12/23/22 12/23/22 2,500 mcg sublingual tablet (Vitamin B-12) Allergies Allergy/AdvReac Type Severity Reaction Status Date / Time Penicillins Allergy Other Verified 12/12/23 01:03 Sulfa (Sulfonamide Allergy Nausea and Verified 12/12/23 01:03 Antibiotics) Vomiting Review of Systems Review of Systems: As reviewed above in HPI [facility] Past Medical History Medical History Diabetes Elevated cholesterol Gout Kidney stones Surgical History Surgical History H/O arthroscopy of right knee History of lithotripsy Social History Social History Smoking status: Never smoker Alcohol intake: never Substance use: never Substance use type: does not use Lack of Transportation: No Lack of Food: Never True Current Housing: I Have Housing Concerned About Future Housing: No Difficulty Paying Gas/Electric Bills: No Difficulty Paying for Meds: No Currently Unemployed: No Education: Associate Degree Difficulty w/ Childcare or Family Care: No Living arrangements: with family Gender identity (if verbalized by the patient): Male Spiritual care concerns: No Exam Narrative: GENERAL: [Well-appearing, well-nourished, and in no acute distress.] HEAD: [Normocephalic, atraumatic.] EYES: [PERRLA and EOMI.] ENT: Nares clear, no rhinorrhea or epistaxis. Mucous membranes moist. NECK: Supple. CHEST: [Clear to auscultation. No respiratory distress.] HEART: [Regular rate and rhythm]. No murmur heard. [Normal peripheral pulses.] ABDOMEN: [Soft, nondistended], [nontender], [No rigidity or guarding] EXTREMITIES: Normal range of motion. [No edema.] SKIN: Warm, dry, no rash. NEURO: [No focal deficits]. Alert and oriented [x3.] PSYCH: [Normal mood and affect.] Course Vital Signs Vital signs: Vital Signs Temperature 36.4 C 12/12/23 01:00 Pulse Rate 65 12/12/23 01:00 Respiratory Rate 18 12/12/23 01:00 Blood Pressure 189/57 H 12/12/23 01:00 Pulse Oximetry 100 12/12/23 01:00 Oxygen Delivery Room Air 12/12/23 01:00 Temperature 36.4 C 12/12/23 01:00 Pulse Rate 62 12/12/23 03:09 Respiratory Rate 12 12/12/23 03:09 Blood Pressure 145/66 H 12/12/23 01:55 Pulse Oximetry 100 12/12/23 03:09 Oxygen Delivery Room Air 12/12/23 01:57 MDM - Chest Pain MDM Narrative Medical decision making narrative: 78-year-old male with a history of hypertension Alzheimer's presenting to the emergency depart with a chief complaint of chest pain shortness a breath which have now st
== END 2023-12-12 03:45 | disposition home or self-care (01) ==
PROVIDERS: Emergency Provider Student in an Organized Health Care Education/Training Program; PCP Internal Medicine
DX: R07.89 Other chest pain (principal); G20.A1 Parkinson's disease without dyskinesia, without mention of fluctuations; F02.80 Dementia in other diseases classified elsewhere, unspecified severity, without behavioral disturbance, psychotic disturbance, mood disturbance, and anxiety; I10 Essential (primary) hypertension; E11.9 Type 2 diabetes mellitus without complications; E78.00 Pure hypercholesterolemia, unspecified; M10.9 Gout, unspecified; Z87.442 Personal history of urinary calculi; Z79.84 Long term (current) use of oral hypoglycemic drugs; Z79.899 Other long term (current) drug therapy
CPT/HCPCS: 36415; 71045; 80053; 83690; 84484; 85025; 85610; 85730; 93005; 99284

== ENCOUNTER 2024-08-05 04:05 | Emergency (ER) | payer MEDICARE, SELFPAY ==
--- NOTE | ~2024-08-05 | XR_ITS ---
Portable chest x-ray Comparison: 12/12/2023 Clinical History: Chest pain Findings: Calcified right midlung granuloma is unchanged. No acute pulmonary abnormality. Cardiomed iastinal silhouette is stable. Bones and soft tissues are unremarkable. Impression: No acute abnormality. Reviewed, dictated and finalized at location . Impression: No acute abnormality.
--- NOTE | 2024-08-05 04:06 | ECG_ITS ---
Test Date: 2024-08-05 04:16:54 Measurements Intervals [place] Rate: 62 P: 32 NV: 188 QRS: 18 QRSD: 107 T: 44 QT: 404 QTc: 413 Interpretive Statements SINUS RHYTHM BORDERLINE ST ABNORMALITY- ANTEROLAT/HIGH LAT LEADS BASELINE WANDER- I, II, III, AVR, AVL, AVF, V2-V3 BORDERLINE ECG Compared to ECG 12/12/2023 01:04:24 NO SIGNIFICANT CHANGE Electronically Signed On 08-05-2024 07:10:50 CDT by Pio Bhandari D.O.
--- OUTSIDE RECORDS SUMMARY | 2024-08-05 04:08 | XMS_ITS ---
Author Organization [facility] HealthCare Care Team Providers Care Cryptographic Clerk Name Role Phone Anders Morataya MD Primary Care Provider [phone] Abilio Villanueva MD Unavailable [phone] Abilio Villanueva MD Unavailable [phone] Active Problems Problem Noted Date Diagnosed Date Anorexia 07/19/2024 Primary osteoarthritis of right knee 03/30/2024 Overview (03/30/2024): R 08/19/21 IMPRESSION: Severe lateral compartment predominant tricompartmental right knee osteoarthritis. Assessment & Plan (07/17/2024 12:44 PM CDT): Still with some benefit from genicular NB. Consider RFA in the future. Offered to schedule but he wants to proceed with treatment of the back first. Discussed r/b/a of genicular RFA. Assessment & Plan (06/13/2024 4:34 PM CDT): S/p Right Genicular nerve block with 100% pain relief and still ongoing. We decided to postpone the Right Genicular RFA at the moment. Patient advised to call us if the pain would come back. Assessment & Plan (05/18/2024 10:33 AM CDT): Right genicular nerve block today Assessment & Plan (03/30/2024 3:20 PM CIRCUS LABORER): Short term benefit from prior IASI. Discussed viscosupplementation, Zilretta and genicular NB/RFA. He is hesitant about RFA to start with. Lumbar spondylosis 03/30/2024 Overview (06/10/2024): MRI 02/16/24 FINDINGS: Normal alignment of the lumbar spine. No suspicious marrow replacing lesion. Mild, approximately 30% height loss of L4 and 25% height loss of L5 vertebral bodies without associated edema indicating chronicity. There is a chronic vertical fracture line extending through the entire L4 body. Schmorl's node change is present within these vertebral bodies is well. T2 hyperintense, T1 intermediate lesion in the T12 vertebral body most likely represents a vertebral osseous hemangioma. Conus medullaris terminates at L1. Moderate lower lumbar paraspinal muscle atrophy and mild edema. Probable bone island in the right iliac bone. Diffuse geographical fatty marrow replacement from L4 to the sacrum consistent with radiation changes from prostate cancer treatment. Bilateral renal atrophy with cystic change in the kidneys. L1-L2: The disc is normal in configuration. There is mild bilateral facet arthropathy. There is no neuroforaminal stenosis. There is no spinal canal stenosis. L2-L3: Mild diffuse disc bulge. There is mild bilateral facet arthropathy with ligamentum flavum hypertrophy. There is no neuroforaminal stenosis. There is no spinal canal stenosis. L3-L4: Diffuse disc bulge with narrowing of the lateral recesses bilaterally and disc material contacting the bilateral L4 nerve root with no definite impingement. There is mild bilateral facet arthropathy with ligamentum flavum hypertrophy. There is mild right neuroforaminal stenosis. There is mild spinal canal stenosis. L4-L5: Diffuse disc bulge with narrowing of the left lateral recess and disc material contacting the left L5 nerve. There is severe left and moderate right facet arthropathy with ligamentum flavum hypertrophy. There is mild bilateral neuroforaminal stenosis. There is mild spinal canal stenosis. L5-S1: Diffuse disc bulge. There is severe right and moderate left facet arthropathy. There is severe bilateral neuroforaminal stenosis. There is no spinal canal stenosis. IMPRESSION: 1. Moderate degenerative changes of the lumbar spine as described above. 2. Chronic, mild L4 and L5 fractures - XR 05/18/24 FINDINGS: Normal alignment. Unchanged L4 and L5 compression deformities impression the most recent MR on 02/16/2024. No new compression deformities. Multilevel degenerative disc disease, up to moderate at L3-L4. Vascular calcifications. IMPRESSION: 1. Unchanged L4 and L5 compression deformities. 2. Multilevel degenerative disc disease of the lumbar spine, up to moderate at L3-L4. Assessment & Plan (07/17/2024 10:26 AM CDT): Will plan L4-5 and L5-S1 bilateral LMP be at today's visit. If gets 80% pain relief for greater full proceed with lumbar medial branch block 2. At next visit. Assessment & Plan (06/13/2024 4:33 PM CDT): Based on physical exam, Lumbar MRI results and given signs and symptoms of Lumbar spondylosis we decided to proceed with B/l L4-L5, L5-S1 MBB #1 at a future visit. Assessment & Plan (03/30/2024 3:26 PM CIRCUS LABORER): Reviewed MRI. Discussed consideration of LMBB/RFA. Knee is the priority at this time. Chronic midline low back pain without sciatica 1 04/09/2023 Assessment & Plan (02/07/2024 11:20 AM CIRCUS LABORER): Has compression fracture on regular films will check MRI Alzheimer's disease 12/05/2023 Overview (12/05/2023): -Onset: 2020 or before -Clinical dementia ratin sum of box scores 12 -MMSE: 13 -Imagin01/19/2021 bMRI, diffuse cerebral volume loss chronic small vessel disease. 04/2023 bMRI: Hippocampal volumes less than 2 standard deviations below the mean, consistent with Alzheimer's dementia mild white matter disease -Diagnosis: AD -Relevant medications: donepezil/Aricept 10 mg daily and Namenda/memantine titrate as tolerated Assessment & Plan (12/05/2023 9:35 AM CDT): -Onset: 2020 or before -Clinical dementia ratin sum of box scores 12 -MMSE: 14 -Imagin01/19/2021 bMRI, diffuse cerebral volume loss chronic small vessel disease. 04/2023 bMRI: Hippocampal volumes less than 2 standard deviations below the mean, consistent with Alzheimer's dementia mild white matter disease -Diagnosis: AD -Relevant medications: donepezil/Aricept 10 mg daily and Namenda/memantine titrate as tolerated PLAN: Continue donepezil/Aricept and Namenda/memantine Day program: [facility] Consultant Macy Kramer for resources and support Insomnia 12/05/2023 Assessment & Plan (12/05/2023 9:37 AM CDT): Trazodone 25-50 mg at HS SunDown syndrome 12/05/2023 Assessment & Plan (12/05/2023 9:36 AM CDT): Trazodone 25 mg around 4 pm daily Other osteoporosis without current pathological fracture 09/21/2023 Assessment & Plan (11/21/2023 3:52 PM CDT): Patient with low intermittent alkaline phosphatase. Has been recommended to have Reclast by [facility] [employer]. 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 Assessment & Plan (01/12/2021 11:28 AM CIRCUS LABORER): No signs or symptoms of other neurologic symptoms. No emotional lability incontinence or difficulty with balance. Scored 23/30 on mini-mental status exam. Plan at this point is to check laboratory studies MRI and begin donepezil Type 2 diabetes mellitus wit hout complication, without long-term current use of insulin 12/24/2019 Assessment & Plan (02/07/2024 11:21 AM CIRCUS LABORER): A1c is 5.5. Doing quite well. Will decrease his metformin to daily Assessment & Plan (11/21/2023 3:52 PM CDT): A1c normal. Assessment & Plan (08/16/2023 4:09 PM CDT): A1c normal Assessment & Plan (03/31/2020 12:59 PM CIRCUS LABORER): Doing well, will continue present rx. Assessment & Plan (12/24/2019 8:10 AM CDT): Doing well. A1c doing very well. Continue present medication Arthritis 06/21/2018 Dystrophia unguium 06/21/2018 Hypercholesterolemia 06/21/2018 Peripheral venous insufficiency 06/21/2018 Seasonal allergies 06/21/2018 Prostate cancer ([facility]) 01/23/2018 Cancer Staging:Clinical stage from 02/24/2015:Stage IIIC(cT1c, cN0, cM0, PSA: 2.1, Grade Group: 5) - Signed by Abilio Villanueva MD on 06/17/2020 Pathologic stage from 02/25/2015:Stage IIIB(pT3a, pN0, cM0, PSA: 0.7, Grade Group: 3) - Signed by Abilio Villanueva MD on 06/17/2020 Overview (11/21/2023): Stable. Assessment & Plan (02/07/2024 11:21 AM CIRCUS LABORER): PSA recently checked Assessment & Plan (03/31/2020 12:59 PM CIRCUS LABORER): To see radiation oncology Assessment & Plan (12/24/2019 8:11 AM CDT): Per Dr Perry Dyslipidemia 12/15/2015 Cellulitis of left lower limb 09/12/2015 Anemia 05/12/2015 Prostate carcinoma 04/14/2015 Finger tendinitis 06/12/2014 Essential hypertension 01/28/2014 Assessment & Plan (02/07/2024 11:21 AM CIRCUS LABORER): BP at target Assessment & Plan (11/21/2023 3:52 PM CDT): BP at target. Assessment & Plan (08/16/2023 4:09 PM CDT): BP at target. Assessment & Plan (12/24/2019 8:10 AM CDT): Doing well blood pressure at target by my exam continue present Rx Diabetes mellitus 01/28/2014 Gout 01/28/2014 Obesity 01/28/2014 Current Treatment and Therapy Plans Eligard Injection - 45 mg every 24 weeks* Plan Start Date:06/01/2021 Plan Provider:Abilio Villanueva MD Linked Problems Prostate cancer (HCC) Treatment Medications leuprolide acetate (6 month) (ELIGARD) Other Current Plans Zoledronic Acid (Reclast) Infusion* Plan Start Date:09/21/2023 Plan Provider:Mitzy Oreilly MD Linked Problems Other osteoporosis without c urrent pathological fracture Treatment Medications No medications scheduled. Past Treatment and Therapy Plans Specialty Infusion Treatment Plan Name Start Date Discontinue Date Treatment Medications Discontinue Reason Plan Provider Leuprolide (LUPRON) for Radiation Oncology 12/01/2020 06/01/2021 leuprolide acetate (6 month) (LUPRON) syringe kit Drug Shortage Margareth Howell NP Eligard Injection - 45 mg every 24 weeks 05/29/2020 12/01/2020 leuprolide (ELIGARD) Drug Shortage Abilio Villanueva MD Radiation Treatments * Course [id number] 06/13/2020 - 07/22/2020 Treatment Period Energy Fraction Dose Fractions Total Dose Plans Planned PELV NODE 06/13/2020 - 07/22/2020 220 28 / 6,160 Reference Points Delivered PELVIC NODES 06/13/2020 - 07/22/2020 6,160 Lifetime Dose Tracking * Chemical Lifetime Dose Automatic Entry Manual Entr y Fluoro Time 0.86 minutes 0.86 minutes 0 minutes Air kerma at the reference point (Ka,r) 5.69 mGy 5 .69 mGy 0 mGy Resolved Problems Problem Noted Date Diagnosed Date Resolved Date Mild dementia with anxiety, unspecified dementia type 04/07/2023 12/05/2023 Assessment & Plan (08/16/2023 4:08 PM CDT): Stable at this time Kulwinder betancourt 06/21/2018 12/05/2023
--- OUTSIDE RECORDS SUMMARY | 2024-08-05 04:08 | XMS_ITS | Clinical Summary ---
Author Organization [facility] Care Team Providers Care Sr Vice President Name Role Phone Anders Morataya MD Primary Care Provider [phone] Abilio Villanueva MD Unavailable [phone] Abilio Villanueva MD Unavailable [phone] Allergies Active Allergy Reactions Criticality Noted Date Comments Penicillin Hives,Rash High 10/01/2015 Penicillins Other (See comments) Low 04/17/2021 Sulfa (Sulfonamide Antibiotics) Stomach upset Low 0 04/17/2021 Sulfamethoxazole-Trimethoprim Stomach upset Low 04/2015 Medications cholecalciferol (VITAMIN D-3) 25 mcg (1,000 unit) tablet Take 1 tablet (1,000 Units total) by mouth daily Active pen needle, diabetic (BD Ultra-Fine Mini Pen Needle) 31 gauge x 05/13 needle Test sugars once daily Dx e11.9 100 each 3 08/26/19 21 Active cyanocobalamin (Vitamin B-12) 100 mcg tabletIndications:Pr evention of Vitamin B12 Deficiency Take 1 tablet (100 mcg total) by mouth daily Taking 2 tablets Active OneTouch Ultra Test stripIndications:Typ e 2 diabetes mellitus without complication, without long-term current use of insulin (HCC) USE TO TEST ONCE DAILY 100 strip 2 07/20/19 23 Active OneTouch Delica Plus Lancet 33 gauge misc USE TO TEST ONCE DAILY 100 each 11 07/20/19 23 Active losartan (COZAAR) 100 mg tablet Take 1 tablet (100 mg total) by mouth daily 90 tablet 3 08/18/19 24 Active donepeziL (ARICEPT) 10 mg tablet Take 1 tablet (10 mg total) by mouth nightly 30 tablet 11 09/28/19 24 Active fenofibrate nanocrystallized (TRICOR) 145 mg tablet TAKE 1 TABLET BY MOUTH EVERY DAY 90 tablet 3 04/30/19 25 Active memantine (NAMENDA) 10 mg tabletIndications:Mo derate to Severe Alzheimer's Type Dementia Take 1 tablet (10 mg total) by mouth 2 (two) times a day 60 tablet 11 05/01/19 25 026 Active traZODone (DESYREL) 50 mg tablet TAKE 1/2-1 TABLET BY MOUTH ONCE DAILY AT BEDTIME FOR SLEEP 90 tablet 2 05/31/[address] (CYMBALTA) 30 mg capsule Take 1 capsule (30 mg total) by mouth daily 30 capsule 5 06/26/19 25 026 Active mirtazapine (REMERON) 7.5 mg tablet Take 1 tablet (7.5 mg total) by mouth nightly 90 tablet 4 07/20/19 25 025 Active metFORMIN (GLUCOPHAGE) 500 mg tablet Take 1 tablet (500 mg total) by mouth 2 (two) times a day with meals 180 tablet 3 12/26/19 24 025 Discontin ued(Thera py completed ) Active Problems Problem Noted Date Diagnosed Date [...] today Assessment & Plan (03/30/2024 3:20 PM BUSINESS ANALYST PROJECT MANAGER): Short term benefit from prior IASI. Discussed [...] visit. Assessment & Plan (03/30/2024 3:26 PM BUSINESS ANALYST PROJECT MANAGER): Reviewed MRI. Discussed consideration of LMBB/RFA. Knee is the priority at this time. Chronic midline low back pain without sciatica 1 04/09/2023 Assessment & Plan (02/07/2024 11:20 AM BUSINESS ANALYST PROJECT MANAGER): Has compression fracture on regular films will check MRI Alzheimer's disease 12/05/2023 Overview (12/05/2023): -Onset: 2019 or before -Clinical dementia ratin sum of box scores 12 -MMSE: 13 -Imagin01/19/2021 bMRI, diffuse cerebral volume loss chronic small vessel disease. 04/2023 bMRI: Hippocampal volumes less than 2 standard deviations below the mean, consistent with Alzheimer's dementia mild white matter disease -Diagnosis: AD -Relevant medications: donepezil/Aricept 10 mg daily and Namenda/memantine titrate as tolerated Assessment & Plan (12/05/2023 9:35 AM CDT): -Onset: 2019 or before -Clinical dementia ratin sum of box scores 12 -MMSE: 14 -Imagin01/19/2021 bMRI, diffuse cerebral volume loss chronic small vessel disease. 04/2023 bMRI: Hippocampal volumes less than 2 standard deviations below the mean, consistent with Alzheimer's dementia mild white matter disease -Diagnosis: AD -Relevant medications: donepezil/Aricept 10 mg daily and Namenda/memantine titrate as tolerated PLAN: Continue donepezil/Aricept and Namenda/memantine Day program: [facility] Consultant Macy Kramer for resources and support [...] been recommended to have Reclast by bone health. 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 Assessment & Plan (01/12/2021 11:28 AM BUSINESS ANALYST PROJECT MANAGER): No signs or symptoms of other neurologic symptoms. No emotional lability incontinence or difficulty with balance. Scored 23/30 on mini-mental status exam. Plan at this point is to check laboratory studies MRI and begin donepezil Type 2 diabetes mellitus wit hout complication, without long-term current use of insulin 12/24/2019 Assessment & Plan (02/07/2024 11:21 AM BUSINESS ANALYST PROJECT MANAGER): A1c is 5.5. Doing quite well. Will decrease his metformin to daily Assessment & Plan (11/21/2023 3:52 PM CDT): A1c normal. Assessment & Plan (08/16/2023 4:09 PM CDT): A1c normal Assessment & Plan (03/31/2020 12:59 PM BUSINESS ANALYST PROJECT MANAGER): Doing well, will continue present rx. Assessment & Plan (12/24/2019 8:10 AM CDT): Doing well. A1c doing very well. Continue present medication Arthritis 06/21/2018 Dystrophia unguium 06/21/2018 Hypercholesterolemia 06/21/2018 Peripheral venous insufficiency 06/21/2018 Seasonal allergies 06/21/2018 Prostate cancer ([facility]) 01/23/2018 Cancer Staging:Clinical stage from 02/24/2015:Stage IIIC(cT1c, cN0, cM0, PSA: 2.1, Grade Group: 5) - Signed by Abilio Villanueva MD on 06/17/2020 Pathologic stage from 02/25/2015:Stage IIIB(pT3a, pN0, cM0, PSA: 0.7, Grade Group: 3) - Signed by Abilio Villanueva MD on 06/17/2020 Overview (11/21/2023): Stable. Assessment & Plan (02/07/2024 11:21 AM BUSINESS ANALYST PROJECT MANAGER): PSA recently checked Assessment & Plan (03/31/2020 12:59 PM BUSINESS ANALYST PROJECT MANAGER): To see radiation oncology Assessment & Plan (12/24/2019 8:11 AM CDT): Per Dr Perry Dyslipidemia 12/15/2015 Cellulitis of left lower limb 09/12/2015 Anemia 05/12/2015 Prostate carcinoma 04/14/2015 Finger tendinitis 06/12/2014 Essential hypertension 01/28/2014 Assessment & Plan (02/07/2024 11:21 AM BUSINESS ANALYST PROJECT MANAGER): BP at target Assessment & Plan (11/21/2023 3:52 PM CDT): BP at target. Assessment & Plan (08/16/2023 4:09 PM CDT): BP at target. Assessment & Plan (12/24/2019 8:10 AM CDT): Doing well blood pressure at target by my exam continue present Rx Diabetes mellitus 01/28/2014 Gout 01/28/2014 Obesity 01/28/2014 Resolved Problems Problem Noted Date Diagnosed Date Resolved Date Mild dementia with anxiety, unspecified dementia type 04/07/2023 12/05/2023 Assessment & Plan (08/16/2023 4:08 PM CDT): Stable at this time Hammer toe 06/21/2018 12/05/2023 Encounters Date Type Department Care Team Description 07/19/2024 8:30 AM CDT Office Visit [facility] [address] [place] [address] Anders Morataya MD Anorexia (Primary Dx) 07/18/2024 Telephone [facility] [address] [place] [address] [facility] [address] [place] [address] Kali Santos MD Post-Op Call 07/17/2024 9:32 AM CDT - 07/17/2024 11:59 PM CDT Hospital Encounter [facility] [address] [facility] [address] [place] [address] Kali Santos MD Primary osteoarthritis of right knee (Primary Dx); Lumbar spondylosis Discharge Disposition: Discharge to home or self care 07/13/2024 Telephone [facility] [address] [facility] [address] [place] [address] Kali Santos MD PMC Preprocedure 07/10/2024 3:00 PM CDT Office Visit [facility] Radiation Oncology [address] [place] [address] [place] [address] Margareth Howell NP Prostate CA (HCC) (Primary Dx) 06/25/2024 11:00 AM CDT Office Visit [facility] [address] [place] [address] [facility] 6th [place] [address] [place] [phone] Eder Duvall MD Alzheimer's disease (HCC) (Primary Dx); Other chronic pain 06/13/2024 11:46 AM CDT - 06/13/2024 11:59 PM CDT Hospital Encounter [facility] [address] [facility] [address] [place] [address] Kali Santos MD Lumbar spondylosis (Primary Dx); Primary osteoarthritis of right knee Discharge Disposition: Discharge to home or self care 06/08/2024 Telephone [facility] [address] [place] [address] Advanced [facility] [address] [place] [address] Kali Santos MD PMC Preprocedure 06/07/2024 1:10 PM CDT Lab [facility] ([facility] [address] [place] [phone] Type 2 diabetes mellitus without complication, without long-term current use of insulin (HCC); Essential hypertension; Prostate CA (HCC) 06/07/2024 10:15 AM CDT Office Visit [facility] [address] [place], [place] [address] [place] [address] Shireen Deras NP Type 2 diabetes mellitus without complication, without long-term current use of insulin (HCC) (Primary Dx); Essential hypertension; Memory loss; Prostate cancer (CMS/HCC) (HCC) 06/07/2024 Results Follow-Up [facility] [address] [place], [place] [address] [address] Shireen Deras NP Thyroid Function [place], Comprehensive metabolic panel, CBC with auto differential, Additional followed-up results: 2 06/07/2024 Orders Only [facility] [address] [place] [address] [place] [address] Margareth Howell NP Prostate CA (HCC) (Primary Dx) 05/21/2024 Telephone [facility] [address] [place] [address] [address] Kali Santos MD 05/18/2024 11:25 AM CDT - 05/18/2024 11:59 PM CDT Hospital Encounter [facility] ([facility]) [address] [place] [address] Lumbar spondylosis Discharge Disposition: Discharge to home or self care 05/18/2024 9:58 AM CDT - 05/18/2024 11:59 PM CDT Hospital Encounter [facility] [address] [place] [address] [facility] [address] [place] [address] Kali Santos MD Lumbar spondylosis (Primary Dx); Primary osteoarthritis of right knee Discharge Disposition: Discharge to home or self care 05/18/2024 Results Follow-Up [facility] [address] [place] [address] [facility] [address] [place] [address] Kali Santos MD XR Spine Lumbar Incl Bending Views 6 or More Views 05/15/2024 Telephone [facility] [address] [facility] [address] [place] [address] Kali Santos MD from Last 3 Months Immunizations Immunization Administration Dates Next Due Influenza, Quad, Adjuvantate d, Intramuscular 01/17/2023 Influenza, Quadrivalent, Hig h Dose, Preservative Free, Intrr 01/09/2022,12/05/2020,11/13/2019 Influenza, Trivalent, High D ose, Split, Preservative Free, Intramuscular 02/12/2024,01/16/2019 Moderna SARS-CoV-2 Monovalen t Vaccination (12+ YRS) 05/08/2020,04/09/2020 Pneumococcal Conjugate PCV 13 01/16/2019 RSV Vaccine, Pref, Recombina nt, Subunit, Adjuvanted, PF, IM (Arexvy) 02/27/2023 Surgical History Surgery Date Site/Laterality Comments PROSTATE SURGERY Medical History Medical History Date Comments Kidney stones Hypertension Diabetes mellitus (HCC) Hyperlipidemia Prostate cancer (HCC) Dementia (HCC) Arthritis Headache Chronic pain disorder Joint pain Cervical disc disorder Low back pain Peripheral neuropathy Neck pain Mid back pain Compression fracture Family History Medical History Relation Name Comments Arthritis Brother 1 Raudel Cancer Brother 1 Raudel Cancer Brother 2 Bruno Coronary artery disease Father Hua Heart disease Father Hua Alzheimer's disease Maternal Grandmother Nikki Not formally diagnosed, eventually ended [facility] in [facility] because of violence. Alzheimer's disease Mother Vignesh onset in her mid 70's, about age 79 from pneumonia. Cancer Paternal Grandmother Lena Cancer Sister Adriana Relation Name Status Comments Brother 1 Raudel Brother 2 Bruno Father Hua Maternal Grandmother Nikki Mother Vignesh Paternal Grandmother Lena Wright Social History Tobacco Use Types Packs/Day Years Used Date Smoking Tobacco: Never Smokeless Tobacco: Never Tobacco Cessation:Counseling Given: Not Answered Alcohol Use Standard Drinks/Week Comments Never 0 (1 standard drink = 0.6 oz pur e alcohol) AUDIT-C Answer Date Recorded Q1: How often do you have a drink containing alcohol? Never 07/17/2024 Q2: How many drinks containi ng alcohol do you have on a typical day when you are drinking? Patient does not drink Q3: How often do you have si x or more drinks on one occasion? Never 07/17/2024 Sex and Gender Information Value Date Recorded Sex Assigned at Not on file Legal Sex Male 4:10 AM BUSINESS ANALYST PROJECT MANAGER Gender Identity Male 01/20/2021 7:01 PM BUSINESS ANALYST PROJECT MANAGER Sexual Orientation Not on file Obstetrics History Last Filed Vital Signs Vital Sign Reading Time Taken Comments Blood Pressure 154/54 07/19/2024 8:48 AM CDT Pulse 114 07/19/2024 8:48 AM CDT Temperature 36.4 C (97.5 F) 07/17/2024 9:38 AM CDT Respiratory Rate 16 07/17/2024 11:02 AM CDT Oxygen Saturation 100% 07/17/2024 11:02 AM CDT Inhaled Oxygen Concentration - - Weight 85.3 kg (188 lb) 07/19/2024 8:48 AM CDT Height 175.3 cm (5' 9) 07/19/2024 8:48 AM CDT Body Mass Index 27.76 07/19/2024 8:48 AM CDT Plan of Treatment Health Maintenance Due Date Last Done Comments Albumin Creatinine Ratio, Urine 1945 Depression Screening 1947 Fall Risk Assessment 1945 Hepatitis C Screening 1945 Dilated Eye Exam 1945 Foot Exam 1945 DTaP/Tdap/Td Vaccine (1 - Tdap) 10/13/1958 Hepatitis B Screening 10/13/1965 Zoster Vaccine (1 of 2) 10/13/1966 Well Visit 65+ 10/13/2012 Pneumococcal vaccine 65+ (2 of 2 - PPSV23) 03/13/2019 01/16/2019 Lipid Panel 03/02/2023 03/02/2022, 09/30, 07/21/2021, Additional history exists Covid-19 Vaccine (6 - 2023-2 5 season) 2023 04/26/2023, 12/17/2021, 12/19/2020, Additional history exists Hemoglobin A1C 12/07/2024 06/07/2024, 09/2 04/2023, 08/16/2023, Additional history exists eGFR 06/07/2025 06/07/2024, 09/0 04/2023, 04/05/2023, Additional history exists Abdominal Aortic Aneurysm (A AA) Screen Completed 01/21/2015 Colon Cancer Screening-CT Colonography Discontinued 09/03/2016 Colon Cancer Screening-Colonoscopy Discontinued 09/03/2016 Colon Cancer Screening-DNA Stool Discontinued 09/04/19 17 Colon Cancer Screening-FIT Discontinued 09/03/2016 Colon Cancer Screening-FOBT Discontinued 09/03/2016 Colon Cancer Screening-Sigmoidoscopy Discontinued 09/03/2016 Colorectal Cancer Screening Discontinued Influenza Vaccine Completed 02/12/2024, , 01/09/2022, Additional history exists Goals Goal Patient Goal Type Associated Problems Recent Progress Patient-Stated? Author CCM Chronic Pain Care Plan Chronic Care Management No change(07/17 9:54 AM CDT) No Lena Paige RN Note: Problem: Chronic Pain Goals: 1. Minimize further functional decline 2. Maximize quality of life 3. Control pain Strategies: - Activity/exercise program recommendation - Conservative stepwise pain medicine strategy with multi-disciplinary approach - Recommend healthy lifestyle strategies and compensatory methods as needed Procedures Procedure Name Priority Date/Time Associated Diagnosis Comments PAIN MGMT IMAGING LUMBAR/SACRAL FACET/ MEDIAL BRANCH BLOCK BILATERAL Schedule Routine, Read Routine (OP Routine) 07/17/2024 10:50 AM CDT Lumbar spondylosis EGFR Routine 06/07/2024 11:36 AM CDT Type 2 diabetes mellitus without complication, without long-term current use of insulin (HCC) Essential hypertension DIFFERENTIAL AUTO Routine 06/07/2024 11:36 AM CDT Type 2 diabetes mellitus without complication, without long-term current use of insulin (HCC) Essential hypertension PSA DIAGNOSTIC Routine 06/07/2024 11:36 AM CDT Prostate CA (HCC) CBC WITH AUTO DIFFERENTIAL Routine 06/07/2024 11:36 AM CDT Type 2 diabetes mellitus without complication, without long-term current use of insulin (HCC) Essential hypertension COMPREHENSIVE METABOLIC PANEL Routine 06/07/2024 11:36 AM CDT Type 2 diabetes mellitus without complication, without long-term current use of insulin (HCC) Essential hypertension THYROID FUNCTION CASCADE Routine 06/07/2024 11:36 AM CDT Type 2 diabetes mellitus without complication, without long-term current use of insulin (HCC) Essential hypertension POCT HEMOGLOBIN A1C Routine 06/07/2024 10:34 AM CDT Type 2 diabetes mellitus without complication, without long-term current use of insulin (HCC) XR LUMBAR SPINE ROUTINE W FLEX EXT Schedule Routine, Read Routine (OP Routine) 05/18/2024 11:57 AM CDT Lumbar spondylosis PAIN MGMT IMAGING GENICULAR NERVE BLOCK Schedule Routine, Read Routine (OP Routine) 05/18/2024 11:05 AM CDT Primary osteoarthritis of right knee POCT LIPID PANEL Routine 03/02/2022 2:29 PM BUSINESS ANALYST PROJECT MANAGER Hyperlipidemia, unspecified hyperlipidemia type COLONOSCOPY REPORT 09/03/2016 CT ABDOMEN PELVIS W CONTRAST Routine 01/21/2015 11:30 AM BUSINESS ANALYST PROJECT MANAGER from Last 3 Months or Most Recently Relevant to Health Maintenance Results * Imaging Lumbar/Sacral Facet Medial Branch Block Bilateral ([id number]) (07/17/2024 10:50 AM CDT) Narrative [facility] - 07/17/2024 10:50 AM CDT The images from this study are not interpreted by Radiology. Please refer to the physician's procedure / OR operative note. us Travis Chin MD IMHong PAIN MGMT PROCEDURES Final R esult [facility] * eGFR (06/07/2024 11:36 AM CDT) eGFR 63 >=60 mL/min/1. 73 m2 Comment: Interpretive Data Reference Interval Normal >/= 90 mL/min/1.73m2 Mildly decreased* 60 - 89 mL/min/1.73m2 Mildly to moderately decreased 45 - 59 mL/min/1.73m2 Moderately to severely decreased 30 - 44 mL/min/1.73m2 Severely decreased 15 - 29 mL/min/1.73m2 Kidney Failure < 15 mL/min/1.73m2 *Relative to young adult level Estimated glomerular filtration rate is determined by the 2020 CKD-EPI equation recommended by the National Kidney Foundation (A Unifying Approach to GFR Estimation: Recommendations of the NKF-ASK Task Force on Reassessing the Inclusion of Race in Diagnosing Kidney Disease, JASN 2020). The CKD-EPI equation should not be used for patients with unstable renal function and has not been validated in children and those over 70. Current interpretive data was last reviewed 2020. Blood 06/07/2024 11:3 6 AM CDT 06/07/2024 12:05 PM CDT us Shireen Deras PE ELECTRICAL ENGINEER LAB BLOOD ORDERABLES Final Re sult [facility] Department [place] [address] * Differential, auto (06/07/2024 11:36 AM CDT) Neutrophil abs 4.57 1.50 - 6.50 K/cumm Imm gran abs 0.05 0.00 - 0.10 K/cumm [facility] Lymphocyte abs 1.40 0.80 - 3.30 K/cumm [facility] Monocyte abs 0.43 0.20 - 0.80 K/cumm [facility] Eosinophil abs 0.24 0.00 - 0.50 K/cumm [facility] Basophil abs 0.06 0.00 - 0.10 K/cumm [facility] Neutrophil pct 67.7 % [facility] Comment: Interpretive Data Percent cell count reference ranges are not reported, since discordance with absolute values may lead to misinterpretation of CBC data. Current Interpretive Data was last revised on 2017. Imm gran pct 0.7 % [facility] Comment: Interpretive Data Percent cell count reference ranges are not reported, since discordance with absolute values may lead to misinterpretation of CBC data. Current Interpretive Data was last revised on 2017. Lymphocyte pct 20.7 % [facility] Comment: Interpretive Data Percent cell count reference ranges are not reported, since discordance with absolute values may lead to misinterpretation of CBC data. Current Interpretive Data was last revised on 2017. Monocyte pct 6.4 % [facility] Comment: Interpretive Data Percent cell count reference ranges are not reported, since discordance with absolute values may lead to misinterpretation of CBC data. Current Interpretive Data was last revised on 2017. Eosinophil pct 3.6 % [facility] Comment: Interpretive Data Percent cell count reference ranges are not reported, since discordance with absolute values may lead to misinterpretation of CBC data. Current Interpretive Data was last revised on 2017. Basophil pct 0.9 % [facility] Comment: Interpretive Data Percent cell count reference ranges are not reported, since discordance with absolute values may lead to misinterpretation of CBC data. Current Interpretive Data was last revised on 2017. Blood 06/07/2024 11:3 6 AM CDT 06/07/2024 11:57 AM CDT Shireen Deras PE ELECTRICAL ENGINEER LAB BLOOD ORDERABLES Final Re sult Performing Organization Address City/[facility]/ZIP Co de Phone Number [facility] Department [place] [address] * Thyroid Function [place] (06/07/2024 11:36 AM CDT) TSH 0.58 0.30 - 4.20 mcIUnit/mL Blood 06/07/2024 11:3 6 AM CDT 06/07/2024 11:57 AM CDT Shireen Deras PE ELECTRICAL ENGINEER LAB BLOOD ORDERABLES Final Re sult Performing Organization Address City/[facility]/ZIP Co de Phone Number [facility] Department [place] [address] * CBC with auto differential (06/07/2024 11:36 AM CDT) WBC 6.75 3.80 - 9.90 K/cumm Hgb 13.7 13.0 - 17.5 g/dL [facility] Hct 39.9 38.9 - 50.3 % [facility] Plt 224 150 - 400 K/cumm [facility] MPV 10.7 9.1 - 12.3 fL [facility] RBC 4.74 4.30 - 5.80 M/cumm [facility] MCV 84.2 81.3 - 96.4 fL [facility] MCH 28.9 27.1 - 33.3 pg [facility] MCHC 34.3 32.3 - 35.7 g/dL [facility] RDW CV 14.3 11.1 - 14.9 % [facility] RDW SD 43.8 35.7 - 48.1 fL [facility] NRBC abs 0.00 0.00 - 0.01 K/cumm [facility] Blood 06/07/2024 11:3 6 AM CDT 06/07/2024 11:57 AM CDT us Shireen Deras PE ELECTRICAL ENGINEER LAB BLOOD ORDERABLES Final Re sult [facility] Department [place] [address] * PSA diagnostic (06/07/2024 11:36 AM CDT) PSA-Total <0.02 <=6.20 ng/mL Comment: Interpretive Data AGE SEX REFERENCE INTERVAL 0 minutes-150 years Female None 0 minutes-49 years Male None 50-59 years Male 0-3.90 60-69 years Male 0-5.40 70-79 years Male 0-6.20 80-150 years Male 0-6.20 The Alfredo PSA Total assay procedure was used. Results from different manufacturers or methods may not be comparable. Serial testing should be performed using the same method. Current interpretive data last revised 21. Blood 06/07/2024 11:3 6 AM CDT 06/07/2024 11:57 AM CDT Margareth Howell PE ELECTRICAL ENGINEER LAB BLOOD ORDERABLES Final Result [facility] Department [place] [address] * Comprehensive metabolic panel (06/07/2024 11:36 AM CDT) Sodium 144 135 - 145 mmol/L Potassium, pl 4.0 3.3 - 4.9 mmol/L [facility] Chloride 105 97 - 110 mmol/L [facility] CO2 29 22 - 32 mmol/L [facility] Anion gap 10 2 - 15 mmol/L [facility] BUN 16 6 - 25 mg/dL [facility] Creatinine 1.19 0.80 - 1.30 mg/dL [facility] Glucose 89 70 - 199 mg/dL [facility] Comment: Interpretive Data Fasting glucose >/= 126 mg/dl is diagnostic for diabetes. Fasting is defined as no caloric intake for at least 8 hours. Fasting glucose between 100 mg/dl to 125 mg/dl is diagnostic of prediabetes. In a patient with classic symptoms of hyperglycemia or hyperglycemic crisis, a random glucose >/= 200 mg/dl is diagnostic for diabetes. In the absence of unequivocal hyperglycemia, results should be confirmed by repeat testing. The classification and Diagnosis of Diabetes Diabetes Care 202; 46: S19-S40. Current interpretive data was last revised 2022. Calcium 9.9 8.5 - 10.3 mg/dL [facility] Bilirubin, total 0.7 0.1 - 1.2 mg/dL [facility] Protein, pl 7.3 6.5 - 8.5 g/dL [facility] Albumin 4.3 3.5 - 5.0 g/dL [facility] Alk phos 69 40 - 130 Units/L [facility] ALT 11 7 - 55 Units/L [facility] AST 18 10 - 50 Units/L [facility] Blood 06/07/2024 11:3 6 AM CDT 06/07/2024 11:57 AM CDT Shireen Deras PE ELECTRICAL ENGINEER LAB BLOOD ORDERABLES Final Re sult [facility] Department [place] [address] * POCT hemoglobin A1c (06/07/2024 10:34 AM CDT) Hemoglobin A1C, POC 5.6 4.0 - 5.6 % Capillary blood 06/07/2024 1 0:34 AM CDT Shireen Deras PE ELECTRICAL ENGINEER POINT OF CARE TEST ORDERABLES Final Result * XR Spine Lumbar Incl Bending Views 6 or More Views (05/18/2024 11:57 AM CDT) Anatomical Region Laterality Modality L-spine N/A Computed Radiogr aphy 05/18/2024 2:43 PM CDT Impressions 05/18/2024 3:16 PM CDT 1. Unchanged L4 and L5 compression deformities. 2. Multilevel degenerative disc disease of the lumbar spine, up to moderate at L3-L4. Dictated by: Rudy Delarosa M.D. The radiology attending physician has personally reviewed this study, and had reviewed and/or edited this written report and agrees with it. Electronically signed by: John Chirinos M.D. Narrative 05/18/2024 3:16 PM CDT EXAMINATION: XR SPINE LUMBAR INCL BENDING VIEWS 6 OR MORE VIEWS HISTORY: Low back pain, symptoms persist with > 6 wks treatment, worsened axial pain after fall COMPARISON: MRI lumbar spine 02/16/2024 FINDINGS: Normal alignment. Unchanged L4 and L5 compression deformities impression the most recent MR on 02/16/2024. No new compression deformities. Multilevel degenerative disc disease, up to moderate at L3-L4. Vascular calcifications. Procedure Note John Chirinos MD - 05/18/2024 EXAMINATION: XR SPINE LUMBAR INCL BENDING VIEWS 6 OR MORE VIEWS HISTORY: Low back pain, symptoms persist with > 6 wks treatment, worsened axial pain after fall COMPARISON: MRI lumbar spine 02/16/2024 FINDINGS: Normal alignment. Unchanged L4 and L5 compression deformities impression the most recent MR on 02/16/2024. No new compression deformities. Multilevel degenerative disc disease, up to moderate at L3-L4. Vascular calcifications. IMPRESSION: 1. Unchanged L4 and L5 compression deformities. 2. Multilevel degenerative disc disease of the lumbar spine, up to moderate at L3-L4. Dictated by: Rudy Delarosa M.D. The radiology attending physician has personally reviewed this study, and had reviewed and/or edited this written report and agrees with it. Electronically signed by: John Chirinos M.D. Kali Santos MD IMG XR PROCEDURES Final Result * Imaging Genicular Nerve Block ([id number]) (05/18/2024 11:05 AM CDT) Narrative [facility] - 05/18/2024 11:05 AM CDT The images from this study are not interpreted by Radiology. Please refer to the physician's procedure / OR operative note. Kali Santos MD IMG PAIN MGMT PROCEDURE S Final Result [facility] * (ABNORMAL) POCT lipid panel (03/02/2022 2:29 PM BUSINESS ANALYST PROJECT MANAGER) Cholesterol, POC 194 mg/dL HDL, POC 30 mg/dL Triglycerides, POC 294 mg/dL LDL Cholesterol POC 105 mg/dL Chol/HDL Ratio, POC 6.5 Non-HDL Cholesterol, POC 164 mg/dL Cholesterol Total, POC 194 mg/dL Capillary blood 03/02/2022 2 :29 PM BUSINESS ANALYST PROJECT MANAGER Anders Morataya MD POINT OF CARE TEST ORDERABLES Final Result * COLONOSCOPY REPORT (09/03/2016) Anatomical Region Laterality Modality Other us Provider Scanning GI PROCEDURE ORDERABLES Final Result * CT Abdomen Pelvis W Contrast (01/21/2015 11:30 AM BUSINESS ANALYST PROJECT MANAGER) Anatomical Region Laterality Modality Body N/A Computed Tomogra phy 01/21/2015 11:3 0 AM BUSINESS ANALYST PROJECT MANAGER Narrative 01/21/2015 1:10 PM BUSINESS ANALYST PROJECT MANAGER DATE OF EXAM: Jan 21 2015 11:30AM Acc#: [id number] ECT 0074 - CT Abd/Pel W DIAGNOSIS: MALIGNANT NEOPLASM OF PROSTATE CLINICAL HISTORY: PROSTATE CA RESULT: EXAMINATION: CT ABDOMEN/PELVIS WITH INTRAVENOUS CONTRAST. CONTRAST: 100 ml Optiray 350. FINDINGS: Comparison is made to the CT examination dated 08/13/2013. Calcified granulomas are present within the right lower lobe. The lung bases are free of acute pathologic densities. The liver is fat infiltrated and measures approximately 22 cm in the craniocaudal dimension. Scattered calcified granulomas involve the spleen and liver. The gallbladder, pancreas, and adrenal glands appear normal. Small hypodense bilateral renal lesions are unchanged. These may represent small cysts. The 6 mm nonobstructing right renal calculus is unchanged. There is no evidence of bowel obstruction or free intraperitoneal air. The appendix is normal. There is no pathologic abdominal lymphadenopathy. A moderate amount of colonic contents are present. The bladder is distended. The base of the bladder is indented by the prostate. The prostate measures approximately 5.4 cm in the transverse dimension. There is no pathologic pelvic lymphadenopathy. A left hemipelvis rounded lymph node measures 7 mm in the short axis (image # [id number]). There is no free pelvic fluid. A tiny sclerotic lesion involving the right iliac wing just superior to the sacroiliac joint likely represents a bone island. This is unchanged from the prior exam. Mild degenerative changes involve the lumbar spine. IMPRESSION: 1. HEPATIC STEATOSIS AND HEPATOMEGALY. 2. SMALL BILATERAL RENAL CYSTIC LESIONS, UNCHANGED. THESE MAY REPRESENT SIMPLE CYSTS. 3. UNCHANGED NONOBSTRUCTING RIGHT RENAL CALCULUS. 4. ENLARGED PROSTATE WITHOUT EVIDENCE OF PELVIC OR ABDOMINAL LYMPHADENOPATHY. STILL OPERATOR BRANDY: [id number] TRANSCRIBE DATE/TIME: Jan 21 2015 12:55P RADIOLOGIST: DAKOTA WARE M.D. READ ON: Jan 21 2015 12:41P ORDERING DR: RENETTA PERRY M.D. THIS DOCUMENT HAS BEEN ELECTRONICALLY SIGNED BY: DAKOTA WARE M.D. ON: Jan 21 2015 1:10P Attending: RENETTA PERRY Requesting: RENETTA PERRY Requesting Attending Attending ID: [id number] Requesting ID: [id number] Report To 1 ID: Report To 1 Name: , Report To 1 FAX: -- Report To 2 ID: Report To 2 Name: , Report To 2 FAX: -- NextGen Order #: Procedure Note Provider, MD Neli - 06/17/2016 DATE OF EXAM: Jan 21 2015 11:30AM Acc#: [id number] ECT 0074 - CT Abd/Pel W DIAGNOSIS: MALIGNANT NEOPLASM OF PROSTATE CLINICAL HISTORY: PROSTATE CA RESULT: EXAMINATION: CT ABDOMEN/PELVIS WITH INTRAVENOUS CONTRAST. CONTRAST: 100 ml Optiray 350. FINDINGS: Comparison is made to the CT examination dated 08/13/2013. Calcified granulomas are present within the right lower lobe. The lung bases are free of acute pathologic densities. The liver is fat infiltrated and measures approximately 22 cm in the craniocaudal dimension. Scattered calcified granulomas involve the spleen and liver. The gallbladder, pancreas, and adrenal glands appear normal. Small hypodense bilateral renal lesions are unchanged. These may represent small cysts. The 6 mm nonobstructing right renal calculus is unchanged. There is no evidence of bowel obstruction or free intraperitoneal air. The appendix is normal. There is no pathologic abdominal lymphadenopathy. A moderate amount of colonic contents are present. The bladder is distended. The base of the bladder is indented by the prostate. The prostate measures approximately 5.4 cm in the transverse dimension. There is no pathologic pelvic lymphadenopathy. A left hemipelvis rounded lymph node measures 7 mm in the short axis (image # [id number]). There is no free pelvic fluid. A tiny sclerotic lesion involving the right iliac wing just superior to the sacroiliac joint likely represents a bone island. This is unchanged from the prior exam. Mild degenerative changes involve the lumbar spine. IMPRESSION: 1. HEPATIC STEATOSIS AND HEPATOMEGALY. 2. SMALL BILATERAL RENAL CYSTIC LESIONS, UNCHANGED. THESE MAY REPRESENT SIMPLE CYSTS. 3. UNCHANGED NONOBSTRUCTING RIGHT RENAL CALCULUS. 4. ENLARGED PROSTATE WITHOUT EVIDENCE OF PELVIC OR ABDOMINAL LYMPHADENOPATHY. STILL OPERATOR BRANDY: GIANNA TRANSCRIBE DATE/TIME: Jan 21 2015 12:55P RADIOLOGIST: DAKOTA WARE M.D. READ ON: Jan 21 2015 12:41P ORDERING DR: RENETTA PERRY M.D. THIS DOCUMENT HAS BEEN ELECTRONICALLY SIGNED BY: JEANIE San TONYEL ON: Jan 21 2015 1:10P Attending: RENETTA PERRY Requesting: RENETTA PERRY Requesting Attending Attending ID: [id number] Requesting ID: [id number] Report To 1 ID: Report To 1 Name: , Report To 1 FAX: -- Report To 2 ID: Report To 2 Name: , Report To 2 FAX: -- NextGen Order #: us Historical Provider MD RUIZ CT PROCEDURES Final R esult from Last 3 Months or Most Recently Relevant to Health Maintenance Insurance MEDICARE [facility] MEDICARE SUPPLEMENT INSURANCE MEDICARE [facility] MEDICARE SUPPLEMENT INSURANCE MEDICARE [facility] MEDICARE SUPPLEMENT INSURANCE MEDICARE [facility] MEDICARE SUPPLEMENT INSURANCE Care Teams Sr Vice President Relationship Specialty Start Date End Date Anders Morataya MD PCP - General 01/03/18 Abilio Villanueva MD [id number] [place] [address] Consulting Physician Radiation Oncology 04/02/20 Abilio Villanueva MD [id number] [place] [address] Radiation Oncologist Radiation Oncology 06/17/20
--- OUTSIDE RECORDS SUMMARY | 2024-08-05 04:08 | XMS_ITS | CONTINUITY OF CARE DOCUMENT ---
Author Name kaye, kaye Address Unknown Organization [facility] Address [address] [address] [place] [address] Phone [phone] Care Team Providers Care Track Laborer Name Role Phone Yvan JAIMES, Argenis Unavailable MEGAN PERRY MD Unavailable MEGAN PERRY MD Unavailable PROBLEMS Condition Status Date Provider Notes Dyslipidemia active MEGAN PERRY MD Anemia- history active Romel Zamora RN Prostate carcinoma active MEGAN PERRY MD Gout active Antonella Mckeon MD Obesity active MEGAN PERRY MD HTN essential active MEGAN PERRY MD Diabetes mellitus active MEGAN PERRY MD PVD active ? Antonella Mckeon MD Cellulitis, foot, left active Antonella gleason MD ENCOUNTERS Date Type Provider Location Encounter Diag nosis - In-person encounter Office Visit MEGAN PERRY MD [place] [facility] - In-person encounter Office Visit MEGAN PERRY MD [place] [facility] - In-person encounter Office Visit MEGAN PERRY MD [place] [facility] - In-person encounter Office Visit MEGAN PERRY MD [place] [facility] - In-person encounter Office Visit MEGAN PERRY MD [place] [facility] - In-person encounter Office Visit MEGAN PERRY MD [place] [facility] - In-person encounter Office Visit MEGAN PERRY MD [place] [facility] - In-person encounter Office Visit MEGAN PERRY MD [place] [facility] - In-person encounter Office Visit MEGAN PERRY MD [place] [facility] - In-person encounter Office Visit MEGAN PERRY MD [place] [facility] - In-person encounter Office Visit MEGAN PERRY MD [place] [facility] - In-person encounter Office Visit MEGAN PERRY MD [place] [facility] - In-person encounter Office Visit MEGAN PERRY MD [place] [facility] - In-person encounter Office Visit MEGAN PERRY MD [place] [facility] - In-person encounter Office Visit Antonella Mckeon MD [facility] Gout - In-person encounter Office Visit MEGAN PERRY MD [place] [facility] - In-person encounter Office Visit Antonella Mckeon MD [place] [facility] PVDCellulitis, foot, left - In-person encounter Office Visit MEGAN PERRY MD [place] [facility] - In-person encounter Office Visit MEGAN PERRY MD [place] [facility] - In-person encounter Office Visit MEGAN PERRY MD [place] [facility] - In-person encounter Office Visit MEGAN PERRY MD [place] [facility] - In-person encounter Office Visit MEGAN PERRY MD [place] [facility] - In-person encounter Office Visit MEGAN PERRY MD [place] [facility] - In-person encounter Office Visit MEGAN PERRY MD [place] [facility] - In-person encounter Office Visit MEGAN PERRY MD [place] [facility] GoutObesityHTN essentialDiabetes mellitus - In-person encounter Office Visit [facility] - In-person encounter Office Visit [facility] - In-person encounter Office Visit [facility] - In-person encounter Office Visit [facility] - In-person encounter Office Visit [facility] - In-person encounter Office Visit [facility] - In-person encounter Office Visit [facility] - In-person encounter Office Visit [facility] - In-person encounter Office Visit [facility] - In-person encounter Office Visit [facility] VITAL SIGNS Date Observation Value Provider blood pressure, diastolic 72 mm[Hg] Jung Rivas blood pressure, systolic 132 mm[Hg] Liana Rivas pulse rate 79 /min Jodie mark oxygen saturation, oximetry 99 % Jodie Rivas respiratory rate E&M 18 /min Deanne Rivas Body Mass Index (Ratio) 35.61 kg/m2 Lena Rivas weight E&M 248.2 [lb_av] Jodie lopes height E&M 70 [in_i] Jodie mark ALLERGIES Allergy Name Onset Date Reaction Criticality Status BACTRIM High Criticality active PENICILLIN High Criticality active RESULTS Date Observation Value Provider Reference Range Interpretation Location prostate specific antigen (PSA) complex <0.1 ng/mL [facility] 0.0-3.6 hemoglobin A1C, blood, as % of total hemoglobin 7.3 % [facility] 4.8-5.6 High lipoprotein, beta, serum, point, quantitative, calculated 96 mg/dL [facility] 0-99 very low density lipoproteins 56 mg/dL [facility] 5-40 High HDL cholesterol, serum 28 mg/dL [facility] >39 Low triglyceride, serum, random 282 mg/dL [facility] 0-149 High cholesterol, serum 180 mg/dL [facility] [phone]/03/ 22 basophil count, absolute 0.0 x10E3/uL [facility] 0.0-0.2 Eosinophil Absolute Count 0.2 X10E3/UL [facility] 0.0-0.4 monocyte count, blood, automated 0.4 X10E3/UL [facility] 0.1-0.9 lymphocyte count, blood, automated 1.1 X10E3/UL [facility] 0.7-3.1 Absolute Neutrophils 3.5 X10E3/UL [facility] 1.4-7.0 basophils as percent of blood leukocytes 1 % [facility] Not Estab. eosinophils as percent of blood leukocytes 3 % [facility] Not Estab. monocytes as percent of blood leukocytes 8 % [facility] Not Estab. lymphocytes as percent of blood leukocytes 21 % [facility] Not Estab. neutrophils as percent of blood leukocytes 67 % [facility] Not Estab. platelet count 215 X10E3/UL [facility] [phone]/03/ 22 red blood cell distribution width 16.3 % [facility] 12.3-15.4 High mean corpuscular hemoglobin concentration, RBC 32.4 G/DL [facility] 31.5-35.7 mean corpuscular hemoglobin, RBC 26.7 pg [facility] 26.6-33.0 mean corpuscular volume, RBC 83 fL [facility] 79-97 hematocrit, blood 40.1 % [facility] 37.5-51.0 hemoglobin, blood 13.0 g/dL [facility] 13.0-17.7 erythrocyte (RBC) count 4.86 X10E6/UL [facility] 4.14-5.80 leukocyte count, blood 5.3 X10E3/UL [facility] 3.4-10.8 alanine aminotransferase (SGPT), serum 19 1/L [facility] 0-44 aspartate aminotransferase (SGOT), serum 15 1/L [facility] 0-40 alkaline phosphatase, serum 50 1/L [facility] 39-117 bilirubin, serum, total 0.5 mg/dL [facility] 0.0-1.2 albumin/globulin ratio, serum 1.5 [facility] 1.2-2.2 globulin, serum 2.8 [facility] 1.5-4.5 albumin, serum 4.3 g/dL [facility] 3.6-4.8 protein, total, serum 7.1 g/dL [facility] 6.0-8.5 calcium, serum 9.5 mg/dL [facility] 8.6-10.2 carbon dioxide, venous blood 23 mmol/L [facility] 18-29 chloride, serum 102 mmol/L [facility] 96-106 potassium, serum 4.8 mmol/L [facility] 3.5-5.2 sodium, serum 141 mmol/L [facility] [phone]/03/ 22 urea nitrogen/creatinine ratio, serum 16 [facility] 10-24 eGFR if 69 mL/min/{1.7 3_m2} [facility] >59 eGFR if not 60 mL/min/{1.7 3_m2} [facility] >59 creatinine, serum 1.22 mg/dL [facility] 0.76-1.27 urea nitrogen, blood 19 mg/dL [facility] 8-27 blood glucose, random 206 mg/dL [facility] 65-99 High prostate specific antigen 0.0 ng/mL [facility] 0.0 - 4.0 very low density lipoproteins 65.2 mg/dL [facility] 5.0 - 40.0 High LDL/HDL (low-density lipoprotein/high-den sity lipoprotein) ratio 3.1 RATIO [facility] - lipoprotein, beta, serum, point, quantitative, calculated 103.8 (?) [facility] 0.0 - 100.0 High HDL cholesterol, serum 34.0 mg/dL [facility] 35.0 - 55.0 Low cholesterol, serum 203.0 mg/dL [facility] 0.0 - 200.0 High triglyceride, serum, fasting 326.0 mg/dL [facility] 0.0 - 150.0 High anion gap, serum 15.8 [facility] - albumin/globulin ratio, serum 2.6 g/dL [facility] 1.1 - 2.5 High globulin, serum 2.9 [facility] 2.3 - 3.8 urea nitrogen/creatinine ratio, serum 20.8 [facility] - Estimated Glomerular Filtration Rate (calc) 58.3 (?) [facility] 59.0 - Low chloride, serum 101.2 mmol/L [facility] 98.0 - 107.0 potassium, serum 4.7 mmol/L [facility] 3.5 - 5.1 sodium, serum 141.0 mmol/L [facility] 136.0 - 145.0 creatinine, serum 1.3 mg/dL [facility] 0.7 - 1.2 High carbon dioxide, venous blood 24.0 mmol/L [facility] 23.0 - 31.0 albumin, serum 4.3 g/dL [facility] 3.5 - 5.2 calcium, serum 10.3 mg/dL [facility] 8.6 - 10.2 High aspartate aminotransferase (SGOT), [facility].0 1/[facility] - 40.0 alkaline phosphatase, serum 54.0 1/[facility] - 130.0 alanine aminotransferase (SGPT), serum 27.0 1/L [facility] 0.0 - 41.0 protein, total, serum 7.2 g/dL [facility] 6.6 - 8.7 bilirubin, serum, total 0.5 mg/dL [facility] 0.[facility] - 1.2 urea nitrogen, blood 27.0 mg/dL [facility] 8.0 - 23.0 High blood glucose, random 141.0 mg/dL [facility] 74.0 - 99.0 High red blood cell distribution width, size density 50.8 fL [facility] immature granulocytes, percentage of total cells, blood 1.6 % [facility] nucleated red blood cells as percent of blood leukocytes 0.0 % [facility] red blood cell (erythrocyte) count, per high power field 0.0 10*3/UL [facility] eosinophils as percent of blood leukocytes 3.7 % [facility] neutrophils as percent of blood leukocytes 67.7 % [facility] Absolute Neutrophils 2.9 CELLS/UL [facility] 1.5 - 7.8 basophils as percent of blood leukocytes 1.2 % [facility] Absolute Basophils 0.1 CELLS/UL [facility] 0.0 - 0.2 monocytes as percent of blood leukocytes 9.7 % [facility] Absolute Monocytes 0.4 CELLS/UL [facility] 0.2 - 1.0 lymphocytes as percent of blood leukocytes 16.1 % [facility] Absolute Lymphocytes 0.7 CELLS/UL [facility] 0.9 - 3.9 Low mean platelet volume 11.3 (?) [facility] platelet count 209.0 THOUSAND/UL [facility] 100.0 - 400.0 mean corpuscular hemoglobin concentration, RBC 32.2 G/DL [facility] 31.0 - 38.0 mean corpuscular hemoglobin, RBC 28.6 pg [facility] 25.0 - 35.0 mean corpuscular volume, RBC 88.9 fL [facility] 75.0 - 100.0 hematocrit, blood 42.3 % [facility] 35.0 - 55.0 hemoglobin, blood 13.6 g/dL [facility] 11.5 - 16.5 erythrocyte count, whole blood 4.8 MILLION/UL [facility] 3.5 - 5.5 Nitrite Urine Negative [facility] Negative urobilinogen, urine 0.2 E.U./dL mg/dl [facility] 0.2 - 1.0 specific gravity, urine 1.025 [facility] 1.001 - 1.035 KETONES, URINE Negative [facility] Negative bilirubin, urine Negative [facility] Negative Glucose Urine Negative [facility] Negative clarity, urine, point Cloudy [facility] Yellow urine color Yellow [facility] yellow to gail anion gap, serum 13.4 [facility] - albumin/globulin ratio, serum 2.8 g/dL [facility] 1.1 - 2.5 High globulin, serum 3.0 [facility] 2.3 - 3.8 urea nitrogen/creatinine ratio, serum 19.3 [facility] - Estimated Glomerular Filtration Rate (calc) 53.7 (?) [facility] 59.0 - Low chloride, serum 102.6 mmol/L [facility] 98.0 - 107.0 potassium, serum 5.0 mmol/L [facility] 3.5 - 5.1 sodium, serum 141.0 mmol/L [facility] 136.0 - 145.0 creatinine, serum 1.4 mg/dL [facility] 0.7 - 1.2 High carbon dioxide, venous blood 25.0 mmol/L [facility] 23.0 - 31.0 albumin, serum 4.6 g/dL [facility] 3.5 - 5.2 calcium, serum 10.3 mg/dL [facility] 8.6 - 10.2 High aspartate aminotransferase (SGOT), serum 21.0 1/L [facility] 0.0 - 40.0 alkaline phosphatase, serum 57.0 1/L [facility] 40.0 - 130.0 alanine aminotransferase (SGPT), serum 25.0 1/L [facility] 0.0 - 41.0 protein, total, serum 7.6 g/dL [facility] 6.6 - 8.7 bilirubin, serum, total 0.5 mg/dL [facility] 0.0 - 1.2 urea nitrogen, blood 27.0 mg/dL [facility] 8.0 - 23.0 High blood glucose, random 139.0 mg/dL [facility] 74.0 - 99.0 High red blood cell distribution width, size density 45.3 fL [facility] immature granulocytes, percentage of total cells, blood 1.1 % [facility] nucleated red blood cells as percent of blood leukocytes 0.0 % [facility] red blood cell (erythrocyte) count, per high power field 0.0 10*3/UL [facility] eosinophils as percent of blood leukocytes 2.7 % [facility] - neutrophils as percent of blood leukocytes 63.2 % [facility] Absolute Neutrophils 3.5 CELLS/UL [facility] 1.5 - 7.8 basophils as percent of blood leukocytes 1.1 % [facility] Absolute Basophils 0.1 CELLS/UL [facility] 0.0 - 0.2 monocytes as percent of blood leukocytes 8.1 % [facility] Absolute Monocytes 0.5 CELLS/UL [facility] 0.2 - 1.0 lymphocytes as percent of blood leukocytes 23.8 % [facility] - Absolute Lymphocytes 1.3 CELLS/UL [facility] 0.9 - 3.9 mean platelet volume 11.3 (?) [facility] platelet count 216.0 THOUSAND/UL [facility] 100.0 - 400.0 mean corpuscular hemoglobin concentration, RBC 32.8 G/DL [facility] 31.0 - 38.0 mean corpuscular hemoglobin, RBC 26.6 pg [facility] 25.0 - 35.0 mean corpuscular volume, RBC 81.0 fL [facility] 75.0 - 100.0 hematocrit, blood 45.1 % [facility] 35.0 - 55.0 hemoglobin, blood 14.8 g/dL [facility] 11.5 - 16.5 erythrocyte count, whole blood 5.6 MILLION/UL [facility] 3.5 - 5.5 High hemoglobin A1C, blood, as % of total hemoglobin 8.5 % [facility] 4.0 - 6.0 High red blood cell distribution width, size density 45.1 fL [facility] - immature granulocytes, percentage of total cells, blood 0.8 % [facility] - nucleated red blood cells as percent of blood leukocytes 0.0 % [facility] - red blood cell (erythrocyte) count, per high power field 0.0 10*3/UL [facility] - eosinophils as percent of blood leukocytes 3.6 % [facility] - neutrophils as percent of blood leukocytes 63.5 % [facility] - Absolute Neutrophils 3.2 CELLS/UL [facility] 1.5 - 7.8 basophils as percent of blood leukocytes 1.0 % [facility] - Absolute Basophils 0.1 CELLS/UL [facility] 0.0 - 0.2 monocytes as percent of blood leukocytes 7.3 % [facility] - Absolute Monocytes 0.4 CELLS/UL [facility] 0.2 - 1.0 lymphocytes as percent of blood leukocytes 23.8 % [facility] - Absolute Lymphocytes 1.2 CELLS/UL [facility] 0.9 - 3.9 mean platelet volume 11.7 (?) [facility] - platelet count 229.0 THOUSAND/UL [facility] 100.0 - 400.0 mean corpuscular hemoglobin concentration, RBC 31.6 G/DL [facility] 31.0 - 38.0 mean corpuscular hemoglobin, RBC 26.5 pg [facility] 25.0 - 35.0 mean corpuscular volume, RBC 84.0 fL [facility] 75.0 - 100.0 hematocrit, blood 44.0 % [facility] 35.0 - 55.0 hemoglobin, blood 13.9 g/dL [facility] 11.5 - 16.5 erythrocyte count, whole blood 5.2 MILLION/UL [facility] 3.5 - 5.5 hemoglobin A1C, blood, as % of total hemoglobin 7.8 % [facility] 4.0 - 6.0 High thyroid stimulating hormone, serum 0.548 ?IU/ML [facility] 0.270 - 4.200 very low density lipoproteins 78.0 mg/dL [facility] 5.0 - 40.0 High LDL/HDL (low-density lipoprotein/high-den sity lipoprotein) ratio 3.9 RATIO [facility] - lipoprotein, beta, serum, point, quantitative, calculated 97.0 (?) [facility] 0.0 - 100.0 HDL cholesterol, serum 25.0 mg/dL [facility] 35.0 - 55.0 Low cholesterol, serum 200.0 mg/dL [facility] 0.0 - 200.0 triglyceride, serum, fasting 390.0 mg/dL [facility] 0.0 - 150.0 High anion gap, serum 12.8 [facility] - albumin/globulin ratio, serum 2.6 g/dL [facility] 1.1 - 2.5 High globulin, serum 3.0 [facility] 2.3 - 3.8 urea nitrogen/creatinine ratio, serum 17.9 [facility] - Estimated Glomerular Filtration Rate (calc) 53.7 (?) [facility] 59.0 - Low chloride, serum 104.2 mmol/L [facility] 98.0 - 107.0 potassium, serum 4.7 mmol/L [facility] 3.5 - 5.1 sodium, serum 142.0 mmol/L [facility] 136.0 - 145.0 creatinine, serum 1.4 mg/dL [facility] 0.7 - 1.2 High carbon dioxide, venous blood 25.0 mmol/L [facility] 23.0 - 31.0 albumin, serum 4.4 g/dL [facility] 3.5 - 5.2 calcium, serum 9.7 mg/dL [facility] 8.6 - 10.2 aspartate aminotransferase (SGOT), serum 20.0 1/L [facility] 0.0 - 40.0 alkaline phosphatase, serum 69.0 1/L [facility] 40.0 - 130.0 alanine aminotransferase (SGPT), serum 28.0 1/L [facility] 0.0 - 41.0 protein, total, serum 7.4 g/dL [facility] 6.6 - 8.7 bilirubin, serum, total 0.4 mg/dL [facility] 0.0 - 1.2 urea nitrogen, blood 25.0 mg/dL [facility] 8.0 - 23.0 High blood glucose, random 280.0 mg/dL [facility] 74.0 - 99.0 High anion gap, serum 14.1 [facility] - albumin/globulin ratio, serum 2.6 g/dL [facility] 1.1 - 2.5 High globulin, serum 3.2 [facility] 2.3 - 3.8 urea nitrogen/creatinine ratio, serum 15.6 [facility] - Estimated Glomerular Filtration Rate (calc) 46.1 (?) [facility] 59.0 - Low chloride, serum 100.9 mmol/L [facility] 98.0 - 107.0 potassium, serum 4.6 mmol/L [facility] 3.5 - 5.1 sodium, serum 141.0 mmol/L [facility] 136.0 - 145.0 creatinine, serum 1.6 mg/dL [facility] 0.7 - 1.2 High carbon dioxide, venous blood 26.0 mmol/L [facility] 23.0 - 31.0 albumin, serum 4.5 g/dL [facility] 3.5 - 5.2 calcium, serum 10.7 mg/dL [facility] 8.6 - 10.2 High aspartate aminotransferase (SGOT), serum 22.0 1/L [facility] 0.0 - 40.0 alkaline phosphatase, serum 83.0 1/L [facility] 40.0 - 130.0 alanine aminotransferase (SGPT), serum 28.0 1/L [facility] 0.0 - 41.0 protein, total, serum 7.7 g/dL [facility] 6.6 - 8.7 bilirubin, serum, total 0.8 mg/dL [facility] 0.0 - 1.2 urea nitrogen, blood 25.0 mg/dL [facility] 8.0 - 23.0 High blood glucose, random 170.0 mg/dL [facility] 74.0 - 99.0 High HISTORY OF MEDICATION USE Medication Status Instructions Dates Provider Indications Com emma PEDRO-CON 25 MEQ ORAL PACKET completed TWO TABLETS DAILY - MEGAN PERRY MD HYDROCHLOROTHIAZIDE 50 MG ORAL TABLET completed ONE TAB. DAILY - MEGAN PERRY MD LANTUS 100 UNIT/ML SUBCUTANEOUS SOLUTION active INJECT 100 UNITS DAILY MEGAN PERRY MD TRICOR 145 MG ORAL TABLET active ONE TABLET DAILY Ruchi Helms GLIPIZIDE 10 MG ORAL TABLET active 2 TABLETS TWICE DAILY MEGAN PERRY MD COZAAR 50 MG ORAL TABLET active ONE TABLET DAILY Ruchi Helms ALLOPURINOL 300 MG ORAL TABLET completed ONE TABLET EVERY OTHER DAY - Jodie Rivas METFORMIN HCL 1000 MG ORAL TABLET completed ONE TABLET TWICE DAILY - Jodie Rivas SOCIAL HISTORY Date Observation Value Provider social history reviewed E&M revi ewed - no changes required Antonella Mckeon MD social history E&M Smoking Histo ry: Patient has never smoked. Antonella Mckeon MD handedness R Handed Antonella lam MD smoking status Never smoker Jodie Castaneda FAMILY HISTORY Family Member Condition Father Family History of Co ronary Artery Disease: INSURANCE PROVIDERS Payer name Policy type / Coverage type [employer] democrat ID mValent [id number] TREATMENT PLAN Date Name Performer Cardiology:BP today: 132/72 His updated medication list for this problem includes: Cozaar 50 Mg Tabs (Losartan potassium) .... One tablet daily Antonella Mckeon MD Cardiology:diminishe d L posterior tibial and diminished R posterior tibial. O rders: S NOMED-CT: [id number] Current Medications Documented (SCT-[id number]) E KG (CPT-68857) 9 9214 MOD Complex (CPT-52043) A rterial - SENSILASE (CPT-38165) in next several weeks Antonella Mckeon MD Cardiology: O rders: 9 9214 MOD Complex (CPT-64798) Antonella Mckeon MD Date Name PSA, TOTAL HEMOGLOBIN A1c TSH, 3RD GENERATION W/REFLEX TO FT4 LIPID PANEL COMPREHENSIVE METABO LIC PANEL, W/EGFR CBC (INCLUDES DIFF/P LT) MICROALBUMIN, RANDOM URINE (W/CREATININE) URINALYSIS, COMPLETE W/REFLEX TO CULTURE VITAMIN D, 25-HYDROX Y, LC/MS/MS URIC ACID LIPID PANEL CBC (INCLUDES DIFF/P LT) COMPREHENSIVE METABO LIC PANEL W/EGFR Aortic Abdominal Ult rasound Carotid Duplex Bilat eral Arterial - SENSILASE Arterial Duplex Bi-L ower EX URIC ACID HEMOGLOBIN A1c COMPREHENSIVE METABO LIC PANEL W/EGFR CBC (INCLUDES DIFF/P LT) URIC ACID HEMOGLOBIN A1c COMPREHENSIVE METABO LIC PANEL W/EGFR CBC (INCLUDES DIFF/P LT) TSH, 3RD GENERATION W/REFLEX TO FT4 HEMOGLOBIN A1c LIPID PANEL COMPREHENSIVE METABO LIC PANEL W/EGFR CBC (INCLUDES DIFF/P LT) COMPREHENSIVE METABO LIC PANEL W/EGFR Stress EKG Regadenoson, 4 units Cardiolite, 2 units SPECT Images HISTORY OF PROCEDURES Procedure Date Procedure Name Provider Procedure Notes S tatus SNOMED-CT: [id number] Physical Exam, Performed: Pulse Exam of Foot Antonella Mckeon MD completed EKG Antonella khan MD completed SNOMED-CT: [id number] Current Medications Documented Antonella Mckeon MD completed Schedule Followup Antonella purdy MD per SK: p carter has PVD and DM, sees dr. Perry as outpatient at [facility], please schedule fu with Dr. mckeon on 09/26/2015 abd arterial LE dopplers n- post hospital fu completed Stress EKG MEGAN PERRY MD completed Cardiolite, 2 units MEGAN PERRY MD completed SPECT Images Kassy Mcclendon MD compl eted
--- OUTSIDE RECORDS SUMMARY | 2024-08-05 04:08 | XMS_ITS ---
Author Organization 1 OF Dustin phan DPM [facility] Address [address] [place] [address] Care Team Providers Care Park Guard Name Role Phone Hood JAIMES, Anders Primary Care Provider Unavailab Keely Baker Unavailable [phone] REASON FOR VISIT F/U wound Encounters Encounter Location Date Provider Diagnosis 1 OF Dustin Ordonez Javon [facility] [address] [place] [address] 07/12/2024 Keely Abdul Plan Of Treatment Next Appt Details Provider Name:Keely Abdul, 08/07/2024 01:10:00 PM, [address] [place] [address], [address], [place], [address], Provider Name:Keely Abdul, 09/13/2024 10:40:00 AM, [address], [address], [place], [address], Progress Notes * Conner VAUGHNDOB:[birth year] (78 yo M)Acc No.[id number]:07/12/2024 Progress Notes Patient: Conner DAS Provider: Alvarez Abdul DPM :1945 A ge:78 Y S ex:Male Date:07/12/2024 Address:[address] [place] [address] [id number] Pcp:Anders Morataya MD Subjective: * Chief Complaints: * 1 . F/U wound. * Medical History: Objective: * Vitals: Assessment: Plan: * Treatment: * Images: * Electronic signature of Kristy Abdul DPM on 08/05/2024 at 04:08 AM CDT Sign off status: Pending * Provider: Alvarez Abdul DPM Date: 0 07/12/2024 Generated for Yohana watt/Moo/Rachael on: 0 08/05/2024 04:08 AM CDT
--- OUTSIDE RECORDS SUMMARY | 2024-08-05 04:08 | XMS_ITS | Clinical Summary ---
Author Organization [facility] [employer] Address [address] [place] [address] Care Team Providers Care Cryptographic Machine Operator Name Role Phone Unavailable Primary Care Provider Unavailabl e Source Comments [facility] [employer],non-owned Affiliates and Associated Physician Practices is amultiple site organization consisting of ambulatory clinics and hospital sitesin [place], [place] and [place]. This disclosure is being madepursuant to the Care Everywhere program and may not contain all information available regarding this patient. Last updated 17.[facility] [employer] Allergies Active Allergy Reactions Criticality Noted Date Comments Penicillins 01/17/2012 Medications * Be aware that medications may not be up to date on this document. Alwaysverify current medications with the patient. allopurinol (ZYLOPRIM) 300 MG tablet Take 300 mg by mouth once daily. Active losartan (COZAAR) 50 MG tablet Take 50 mg by mouth once daily. Active metFORMIN (GLUCOPHAGE) 1000 MG tablet Take 1,000 mg by mouth 2 times daily with morning and evening meal. Active glipiZIDE CR 24hr (GLUCOTROL XL) 10 MG tablet Take 10 mg by mouth daily before breakfast. Active fenofibrate (TRICOR) 145 MG tablet Take 145 mg by mouth once daily. Active insulin glargine (LANTUS) injection Inject 80 Units subcutaneously at bedtime. Active hydrochlorothi azide (HYDRODIURIL) 50 MG tablet Take 50 mg by mouth once daily. 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 Gender Identity Not on file Sexual Orientation Not on file Last Filed Vital Signs Vital Sign Reading Time Taken Comments Blood Pressure 127/77 06/03/2014 11:04 AM CDT Pulse 96 06/03/2014 11:04 AM CDT Temperature 36.2 C (97.2 F) 02/11/2014 1:50 PM REPORTING PROCESS CONSULTANT Respiratory Rate 20 02/11/2014 2:10 PM REPORTING PROCESS CONSULTANT Oxygen Saturation 99% 02/11/2014 2:10 PM REPORTING PROCESS CONSULTANT Inhaled Oxygen Concentration - - Weight 117.9 kg (260 lb) 06/03/2014 11:04 AM CDT Height 180.3 cm (5' 11) 06/03/2014 11:04 AM CDT Body Mass Index 36.26 06/03/2014 11:04 AM CDT Plan of Treatment Health Maintenance Due Date Last Done Comments MEDICARE AWV 12 MONTHS 1945 HEPATITIS C SCREENING 10/09/1965 DTAP/TDAP/TD VACCINES (1 - Tdap) 10/13/1966 PNEUMOCOCCAL VACCINE 50+ (1 of 1 - PCV) 10/13/1997 ZOSTER VACCINE (1 of 2) 10/13/1997 Respiratory Syncytial Virus (RSV) Vaccine Pt: or over 60 yrs (1 - 1-dose 75+ series) 10/13/2022 COVID-19 VACCINE (1 - 2023-2 5 season) 2023 DEPRESSION SCREENING 02/29/2024 INFLUENZA VACCINE (Season Ended) 2024 HEPATITIS B VACCINE Aged Out No longe r eligible based on patient's age to complete this topic HIB VACCINE Aged Out No longer eligi ble based on patient's age to complete this topic HPV VACCINE Aged Out No longer eligi ble based on patient's age to complete this topic MENINGOCOCCAL (Group B) VACC INE SHARED DECISION-MAKING Aged Out No longer eligibl e based on patient's age to complete this topic MENINGOCOCCAL GROUPS A/C/Y/W VACCINE Aged Out No longer eligible b ased on patient's age to complete this topic Insurance [facility] Address: [facility] [address] [place] [address] MEDICARE MEDICARE [facility] [place] [employer] [address] [id number] MEDICARE
--- OUTSIDE RECORDS SUMMARY | 2024-08-05 04:08 | XMS_ITS | Encounter Summary ---
Author Organization [facility] Address [address] [place] [address] Care Team Providers Care Field Liability Generalist Name Role Phone Unavailable Primary Care Provider Unavailabl e Encounter Details Date Type Department Care Team (Late st Contact Info) Description 05/06/2021 Lab Requisition [facility] DermPath Lab [address] [place] [address] Chevy Brink MD [address] [place] [id number] Social History Tobacco Use Types Packs/Day Years Used Date Smoking Tobacco: Never Smokeless Tobacco: Never Alcohol Use Standard Drinks/Week Comments No 0 (1 standard drink = 0.6 oz pur e alcohol) Sex and Gender Information Value Date Recorded Sex Assigned at Not on file Legal 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 Answer Date of Assessment Author No 02/11/2014 1:54 PM Chely Vizcaino RN * Is person blind or have serious difficulty seeing? Answer Date of Assessment Author No 02/11/2014 1:54 PM Chely Vizcaino RN * Does person have serious difficulty walking/climbing stairs? Answer Date of Assessment Author No 02/11/2014 1:54 PM Chely Vizcaino RN * Does person have difficulty dressing/bathing? Answer Date of Assessment Author No 02/11/2014 1:54 PM Chely Vizcaino RN * Does person have difficulty doing errands alone? Answer Date of Assessment Author No 02/11/2014 1:54 PM Chely Vizcaino RN documented as of this encounter Mental Status * Does person have difficulty concentrating/remembering/making decisions? Answer Entry Date Author No 02/11/2014 1:54 PM Chely Vizcaino RN documented in this encounter Plan of Treatment Not on file documented as of this encounter Procedures Procedure Name Priority Date/Time Associated Diagnosis Comments DERMATOPATHOLOGY Routine 05/05/2021 12:0 0 AM SIGNS SALES REPRESENTATIVE documented in this encounter Results * DERMATOPATHOLOGY (05/05/2021 12:00 AM SIGNS SALES REPRESENTATIVE) Case Report Dermatopathology Report Case: [id number] Authorizing Provider: Chevy Brink MD Collected: 05/05/2021 12:00 AM Ordering Location: [facility] DermPath Lab Received: 05/06/2021 12:40 PM Pathologist: Javon Nelson MD Specimen: Skin, left preauricular cheek posterior to sideburn 2 4:26 PM [facility] DERMATOPATHOLOGY LABORATORY Final Diagnosis Specimen A. SKIN, left preauricular cheek posterior to sideburn: SQUAMOUS CELL CARCINOMA, WELL DIFFERENTIATED (C44.329) 2 4:26 PM [facility] DERMATOPATHOLOGY LABORATORY at [address] [facility] Clinical History R/O SCC 2 4:26 PM [facility] DERMATOPATHOLOGY LABORATORY Gross Description Specimen A: Received is one formalin filled container labeled with the patient's name and designated left preauricular cheek posterior to sideburn. The specimen consists of a shave biopsy measuring [id number]. Jar 0. 2 4:26 PM [facility] DERMATOPATHOLOGY LABORATORY Microscopic Description Specimen A. SKIN, left preauricular cheek posterior to sideburn: Arising in the epidermis and extending into the dermis there are irregularly shaped aggregates of keratinocytes showing evidence of premature cornification. 2 4:26 PM [facility] DERMATOPATHOLOGY LABORATORY Disclaimer An external and internal positive and negative controls are appropriate for the histochemical, immunohistochemical and immunofluorescence stain(s) in this case (if any), except where stated explicitly. The performance characteristics of the stain(s) cited in this report were developed and its performance characteristic determined by the Dermatopathology Laboratory at [facility], directed by Dr. Geoffrey Nelson. These tests need not be, and therefore are not, approved by the [place] Food and Drug Administration. The tests are used for clinical purposes. Billing Codes Specimen Charges Stain Charges 44360 1 2 4:26 PM SIGNS SALES REPRESENTATIVE DERMATOPATHOLOGY LABORATORY Embedded Images 2 4:26 PM SIGNS SALES REPRESENTATIVE DERMATOPATHOLOGY LABORATORY Pathology/Cytolog y TISSUE SPECIMEN FROM SKIN / Unknown 05/05/2021 05/06/2021 12:40 PM SIGNS SALES REPRESENTATIVE Chevy Brink MD LAB - PATHOLOGY/CYTOLOGY ORD ERABLES Final Result DERMATOPATHOLOGY LABORATORY [facility] - Department of Dermatology [facility] Medicine [address] [place] [address], [address] [phone] documented in this encounter Visit Diagnoses Not on filedocumented in this encounter
--- OUTSIDE RECORDS SUMMARY | 2024-08-05 04:08 | XMS_ITS | Encounter Summary ---
Author Organization [facility] Health Address [address] [address] Care Team Providers Care Underwriting Assistant Name Role Phone Unavailable Primary Care Provider Unavailabl e Encounter Details Date Type Department Care Team (Late st Contact Info) Description 12/27/2022 Lab Requisition [facility] - DermPath Lab [address] [place] [address] Chevy Brink MD [address] [place] [address] Social History Tobacco Use Types Packs/Day Years Used Date Smoking Tobacco: Never Smokeless Tobacco: Never Alcohol Use Standard Drinks/Week Comments No 0 (1 standard drink = 0.6 oz pur e alcohol) Sex and Gender Information Value Date Recorded Sex Assigned at Not on file 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 Gender Identity Not on file Sexual Orientation [...] Priority Date/Time Associated Diagnosis Comments DERMATOPATHOLOGY Routine 12/22/2022 3:33 AM CDT documented in this encounter Results * DERMATOPATHOLOGY (12/22/2022 3:33 AM CDT) Case Report Dermatopathology Report Case: [id number] Authorizing Provider: Chevy Brink MD Collected: 12/22/2022 03:33 AM Ordering Location: [facility] DermPath Lab Received: 12/27/2022 09:32 AM Pathologist: Javon Nelson MD Specimen: Skin, right frontal scalp 5:41 PM CDT DERMATOPATHOLOGY LABORATORY Addendum 1 This lesion is present at the margin of the specimen. 5:41 PM CDT DERMATOPATHOLOGY LABORATORY Addendum electronically signed by Javon Nelson MD on 12/31/2022 at 1740 CDT Final Diagnosis Specimen A. 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 Check Margins. 5:41 PM CDT DERMATOPATHOLOGY LABORATORY Gross Description Specimen A: Received is one formalin filled container labeled with the patients name and designated right frontal scalp. The specimen consists of a shave removal measuring [id number] mm. Jar 0. 5:41 PM CDT DERMATOPATHOLOGY LABORATORY Microscopic Description Specimen A. SKIN, right frontal scalp: Sections show skin with irregularly shaped nests of keratinocytes with evidence of cornification. In some nests, there is loss of cohesion between the neoplastic cells, as well as individual dyskeratotic cells that lack intercellular bridges. 11/03/202 3 5:41 PM CDT DERMATOPATHOLOGY LABORATORY Disclaimer An external and internal positive and negative controls are appropriate for the histochemical, immunohistochemical and immunofluorescence stain(s) in this case (if any), except where stated explicitly. The performance characteristics of the stain(s) cited in this report were developed and its performance characteristic determined by the Dermatopathology Laboratory at [facility], directed by Dr. Geoffrey Nelson. These tests need not be, and therefore are not, approved by the [place] Food and Drug Administration. The tests are used for clinical purposes. Billing Codes Specimen Charges Stain Charges 36582 1 3 5:41 PM CDT DERMATOPATHOLOGY LABORATORY Embedded Images 3 5:41 PM CDT DERMATOPATHOLOGY LABORATORY Pathology/Cytolo gy TISSUE SPECIMEN FROM SKIN / Unknown 12/22/2022 3:33 AM CDT 12/27/2022 9:32 AM CDT Chevy Brink MD LAB - PATHOLOGY/CYTOLOGY ORD ERABLES Edited Result - Final DERMATOPATHOLOGY LABORATORY [facility] - Department of Dermatology [facility] Medicine [address] [place] [address], [address] [phone] documented in this encounter Visit Diagnoses Not on filedocumented in this encounter
--- OUTSIDE RECORDS SUMMARY | 2024-08-05 04:08 | XMS_ITS | Referral Summary ---
Author Organization [facility] HealthCare Care Team Providers Care Support Assistant Name Role Phone Anders Morataya MD Primary Care Provider Abilio Villanueva MD Unavailable [phone] Abilio Villanueva MD Unavailable [phone] Encounters Date Type Department Care Team Description 07/19/2024 8:30 AM CDT Office Visit [facility] [address] [facility] 1 [place] [address] Anders Morataya MD Anorexia (Primary Dx) 07/18/2024 Telephone [facility] [address] [place] [address] Advanced Medicine [address] [place] [address] Kali Santos MD Post-Op Call 07/17/2024 9:32 AM CDT - 07/17/2024 11:59 PM CDT Hospital Encounter [facility] [address] [place] [address] Advanced Medicine [address] [place] [address] Kali Santos MD Primary osteoarthritis of right knee (Primary Dx); Lumbar spondylosis Discharge Disposition: Discharge to home or self care 07/13/2024 Telephone [facility] [address] [place] [address] Advanced Medicine [address] [place] [address] Kali Santos MD [facility] Preprocedure 07/10/2024 3:00 PM CDT Office Visit [facility] Radiation Oncology [address] [place] [address] Margareth Howell NP Prostate CA (HCC) (Primary Dx) 06/25/2024 11:00 AM CDT Office Visit [facility] [address] [place] [address] [place] [address] Eder Duvall MD Alzheimer's disease (HCC) (Primary Dx); Other chronic pain 06/13/2024 11:46 AM CDT - 06/13/2024 11:59 PM CDT Hospital Encounter [facility] [address] [place] [address] [facility] [address] [place] [address] Kali Santos MD Lumbar spondylosis (Primary Dx); Primary osteoarthritis of right knee Discharge Disposition: Discharge to home or self care 06/08/2024 Telephone [facility] Advanced Medicine [address] [facility] [address] [place] [address] Kali Snatos MD PMC Preprocedure 06/07/2024 Results Follow-Up [facility] [address] [place] [address] Shireen Deras NP Thyroid Function [place], Comprehensive metabolic panel, CBC with auto differential, Additional followed-up results: 2 06/07/2024 Orders Only [facility] Radiation Oncology [address] [place] [address] Margareth Howell NP Prostate CA (HCC) (Primary Dx) 06/07/2024 1:10 PM CDT Lab [facility] ([facility]) [address] [place] [phone] Type 2 diabetes mellitus without complication, without long-term current use of insulin (HCC); Essential hypertension; Prostate CA (HCC) 06/07/2024 10:15 AM CDT Office Visit [facility] [address] [place] [address] [address] [facility] [place] [address] Shireen Deras NP Type 2 diabetes mellitus without complication, without long-term current use of insulin (HCC) (Primary Dx); Essential hypertension; Memory loss; Prostate cancer (CMS/HCC) (HCC) 05/21/2024 Telephone [facility] [address] [place] [address] Advanced [facility] [address] [place] [address] Kali Santos MD 05/18/2024 Results Follow-Up [facility] Advanced [address] Advanced [facility] [address] [place] [address] Kali Santos MD XR Spine Lumbar Incl Bending Views 6 or More Views 05/18/2024 11:25 AM CDT - 05/18/2024 11:59 PM CDT Hospital Encounter [facility] [address] [place] [address] Lumbar spondylosis Discharge Disposition: Discharge to home or self care 05/18/2024 9:58 AM CDT - 05/18/2024 11:59 PM CDT Hospital Encounter [facility] Medicine [address] [place] [address] Advanced Medicine [address] [place] [address] Kali Santos MD Lumbar spondylosis (Primary Dx); Primary osteoarthritis of right knee Discharge Disposition: Discharge to home or self care 05/15/2024 Telephone [facility] Medicine [address] [place] [address] Advanced Medicine [address] [place] [address] Kali Santos MD from Last 3 Months Allergies Active Allergy Reactions Criticality Noted Date Comments Penicillin Hives,Rash High 10/01/2015 Penicillins Other (See comments) Low 04/17/2021 Sulfa (Sulfonamide Antibiotics) Stomach upset Low 0 04/17/2021 Sulfamethoxazole-Trimethoprim Stomach upset Low 04/2015 Medications cholecalciferol (VITAMIN D-3) 25 mcg (1,000 unit) tablet Take 1 tablet (1,000 Units total) by mouth daily Active pen needle, diabetic (BD Ultra-Fine Mini Pen Needle) 31 gauge x 3/16 needle Test sugars once daily Dx e11.9 [...] today Assessment & Plan (03/30/2024 3:20 PM BLANCHARD GRINDER OPERATOR): Short term benefit from prior IASI. Discussed [...] visit. Assessment & Plan (03/30/2024 3:26 PM BLANCHARD GRINDER OPERATOR): Reviewed MRI. Discussed consideration of LMBB/RFA. Knee is the priority at this time. 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 Assessment & Plan (01/12/2021 11:28 AM BLANCHARD GRINDER OPERATOR): No signs or symptoms of other neurologic symptoms. No emotional lability incontinence or difficulty with balance. Scored 23/30 on mini-mental status exam. Plan at this point is to check laboratory studies MRI and begin donepezil Type 2 diabetes mellitus wit hout complication, without long-term current use of insulin 12/24/2019 Assessment & Plan (02/07/2024 11:21 AM BLANCHARD GRINDER OPERATOR): A1c is 5.5. Doing quite well. Will decrease his metformin to daily Assessment & Plan (11/21/2023 3:52 PM CDT): A1c normal. Assessment & Plan (08/16/2023 4:09 PM CDT): A1c normal Assessment & Plan (03/31/2020 12:59 PM BLANCHARD GRINDER OPERATOR): Doing well, will continue present rx. Assessment & Plan (12/24/2019 8:10 AM CDT): Doing well. A1c doing very well. Continue present medication Arthritis 06/21/2018 Dystrophia unguium 06/21/2018 Hypercholesterolemia 06/21/2018 Peripheral venous insufficiency 06/21/2018 Seasonal allergies 06/21/2018 Prostate cancer ([facility]) 01/23/2018 Cancer Staging:Clinical stage from 02/24/2015:Stage IIIC(cT1c, cN0, cM0, PSA: 2.1, Grade Group: 5) - Signed by Abilio Villanueva MD on 06/17/2020 Pathologic stage from 02/25/2015:Stage IIIB(pT3a, pN0, cM0, PSA: 0.7, Grade Group: 3) - Signed by Abilio Villanueva MD on 06/17/2020 Overview (11/21/2023): Stable. Assessment & Plan (02/07/2024 11:21 AM BLANCHARD GRINDER OPERATOR): PSA recently checked Assessment & Plan (03/31/2020 12:59 PM BLANCHARD GRINDER OPERATOR): To see radiation oncology Assessment & Plan (12/24/2019 8:11 AM CDT): Per Dr Perry Dyslipidemia 12/15/2015 Cellulitis of left lower limb 09/12/2015 Anemia 05/12/2015 Prostate carcinoma 04/14/2015 Finger tendinitis 06/12/2014 Essential hypertension 01/28/2014 Assessment & Plan (02/07/2024 11:21 AM BLANCHARD GRINDER OPERATOR): BP at target Assessment & Plan (11/21/2023 [...] at this time Kulwinder betancourt 06/21/2018 12/05/2023 Immunizations Immunization Administration Dates Next Due Influenza, Quad, Adjuvantate d, Intramuscular 01/17/2023 Influenza, Quadrivalent, Hig h Dose, Preservative Free, Intrr 01/09/2022,12/05/2020,11/13/2019 Influenza, Trivalent, High D ose, Split, Preservative Free, Intramuscular 02/12/2024,01/16/2019 Moderna SARS-CoV-2 Monovalen t Vaccination (12+ YRS) 05/08/2020,04/09/2020 Pneumococcal Conjugate PCV 13 01/16/2019 RSV Vaccine, Pref, Recombina nt, Subunit, Adjuvanted, PF, IM (Arexvy) 02/27/2023 Social History Tobacco Use Types Packs/Day Years [...] on file Legal Sex Male 4:10 AM BLANCHARD GRINDER OPERATOR Gender Identity Male 01/20/2021 7:01 PM BLANCHARD GRINDER OPERATOR Sexual Orientation Not on file Last Filed [...] 07/19/2024 8:48 AM CDT Plan of Treatment Not on file Goals Goal Patient Goal Type Associated Problems [...] POCT LIPID PANEL Routine 03/02/2022 2:29 PM BLANCHARD GRINDER OPERATOR Hyperlipidemia, unspecified hyperlipidemia type COLONOSCOPY REPORT 09/03/2016 CT ABDOMEN PELVIS W CONTRAST Routine 01/21/2015 11:30 AM BLANCHARD GRINDER OPERATOR from Last 3 Months or Most Recently Relevant to Health Maintenance Results * Imaging Lumbar/Sacral Facet Medial Branch Block Bilateral ([id number]) (07/17/2024 10:50 AM CDT) Narrative [facility] - 07/17/2024 10:50 AM CDT The images from this study are not interpreted by Radiology. Please refer to the physician's procedure / OR operative note. Travis Chin MD IMG PAIN MGMT PROCEDURES Final R esult [facility] [...] of Race in Diagnosing Kidney Disease, JASN 202). The CKD-EPI equation should not be used for patients with unstable renal function and has not been validated in children and those over 70. Current interpretive data was last reviewed 2020. Blood 06/07/2024 11:3 6 AM CDT 06/07/2024 12:05 PM CDT us Shireen Deras OCCUPATIONAL THERAPY MANAGER LAB BLOOD ORDERABLES Final Re sult [facility] [place] [address] * Differential, auto (06/07/2024 11:36 AM CDT) Neutrophil abs 4.57 1.50 - 6.50 K/cumm Imm gran abs 0.05 0.00 - 0.10 K/cumm [facility] Lymphocyte abs 1.40 0.80 - 3.30 K/cumm [facility] Monocyte abs 0.43 0.20 - 0.80 K/cumm [facility] Eosinophil abs 0.24 0.00 - 0.50 K/cumm [facility] Basophil abs 0.06 0.00 - 0.10 K/cumm [facility] Neutrophil pct 67.7 % [facility] Comment: Interpretive Data Percent cell count reference ranges are not reported, since discordance with absolute values may lead to misinterpretation of CBC data. Current Interpretive Data was last revised on 2017. Imm gran pct 0.7 % [facility] Comment: Interpretive Data Percent cell count reference ranges are not reported, since discordance with absolute values may lead to misinterpretation of CBC data. Current Interpretive Data was last revised on 2017. Lymphocyte pct 20.7 % [facility] Comment: Interpretive Data Percent cell count reference ranges are not reported, since discordance with absolute values may lead to misinterpretation of CBC data. Current Interpretive Data was last revised on 2017. Monocyte pct 6.4 % [facility] Comment: Interpretive Data Percent cell count reference ranges are not reported, since discordance with absolute values may lead to misinterpretation of CBC data. Current Interpretive Data was last revised on 2017. Eosinophil pct 3.6 % [facility] Comment: Interpretive Data Percent cell count reference ranges are not reported, since discordance with absolute values may lead to misinterpretation of CBC data. Current Interpretive Data was last revised on 2017. Basophil pct 0.9 % [facility] Comment: Interpretive Data Percent cell count reference ranges are not reported, since discordance with absolute values may lead to misinterpretation of CBC data. Current Interpretive Data was last revised on 2017. Blood 06/07/2024 11:3 6 AM CDT 06/07/2024 11:57 AM CDT Shireen Deras OCCUPATIONAL THERAPY MANAGER LAB BLOOD ORDERABLES Final Re sult Performing Organization Address [facility] Co de Phone Number [facility] [place] [address] * Thyroid Function [place] (06/07/2024 11:36 AM CDT) Pathologist [facility] TSH 0.58 0.30 - 4.20 mcIUnit/mL Blood 06/07/2024 11:3 6 AM CDT 06/07/2024 11:57 AM CDT Shireen Deras OCCUPATIONAL THERAPY MANAGER LAB BLOOD ORDERABLES Final Re sult Performing Organization Address [facility] Co de Phone Number [facility] [place] [address] * CBC with auto differential (06/07/2024 11:36 AM CDT) Pathologist [facility] WBC 6.75 3.80 - 9.90 K/cumm Hgb 13.7 13.0 - 17.5 g/dL [facility] Hct 39.9 38.9 - 50.3 % [facility] Plt 224 150 - 400 K/cumm [facility] MPV 10.7 9.1 - 12.3 fL [facility] RBC 4.74 4.30 - 5.80 M/cumm [facility] MCV 84.2 81.3 - 96.4 fL [facility] MCH 28.9 27.1 - 33.3 pg [facility] MCHC 34.3 32.3 - 35.7 g/dL [facility] RDW CV 14.3 11.1 - 14.9 % [facility] RDW SD 43.8 35.7 - 48.1 fL [facility] NRBC abs 0.00 0.00 - 0.01 K/cumm [facility] Blood 06/07/2024 11:3 6 AM CDT 06/07/2024 11:57 AM CDT us Shireen Deras OCCUPATIONAL THERAPY MANAGER LAB BLOOD ORDERABLES Final Re sult Performing Organization Address [facility] Co de Phone Number [place] [address] * PSA diagnostic (06/07/2024 11:36 AM CDT) [...] AM CDT 06/07/2024 11:57 AM CDT us Margareth Howell OCCUPATIONAL THERAPY MANAGER LAB BLOOD ORDERABLES Final Result Performing Organization Address City/[facility]/ZIP Co de Phone Number [place] [address] * Comprehensive metabolic panel (06/07/2024 11:36 AM CDT) Sodium 144 135 - 145 mmol/L Potassium, pl 4.0 3.3 - 4.9 mmol/L [facility] Chloride 105 97 - 110 mmol/L [facility] CO2 29 22 - 32 mmol/L [facility] Anion gap 10 2 - 15 mmol/L [facility] BUN 16 6 - 25 mg/dL [facility] Creatinine 1.19 0.80 - 1.30 mg/dL [facility] Glucose 89 70 - 199 mg/dL [facility] Comment: Interpretive Data Fasting glucose >/= 126 [...] classification and Diagnosis of Diabetes Diabetes Care 2021; 46: S19-S40. Current interpretive data was last revised 2022. Calcium 9.9 8.5 - 10.3 mg/dL [facility] Bilirubin, total 0.7 0.1 - 1.2 mg/dL [facility] Protein, pl 7.3 6.5 - 8.5 g/dL [facility] Albumin 4.3 3.5 - 5.0 g/dL [facility] Alk phos 69 40 - 130 Units/L [facility] ALT 11 7 - 55 Units/L [facility] AST 18 10 - 50 Units/L [facility] Blood 06/07/2024 11:3 6 AM CDT 06/07/2024 11:57 AM CDT us Shireen Deras OCCUPATIONAL THERAPY MANAGER LAB BLOOD ORDERABLES Final Re sult [facility] [place] [address] * POCT hemoglobin A1c (06/07/2024 10:34 AM CDT) Hemoglobin A1C, POC 5.6 4.0 - 5.6 % Capillary blood 06/07/2024 1 0:34 AM CDT Shireen Meyer Braeden OCCUPATIONAL THERAPY MANAGER POINT OF CARE TEST ORDERABLES Final Result [...] Final Result * Imaging Genicular Nerve Block ([id number]) (05/18/2024 11:05 AM CDT) Narrative [facility] - 05/18/2024 11:05 AM CDT The images from this study are not interpreted by Radiology. Please refer to the physician's procedure / OR operative note. Kali Santos MD IMG PAIN MGMT PROCEDURE S Final Result [facility] * (ABNORMAL) POCT lipid panel (03/02/2022 2:29 PM BLANCHARD GRINDER OPERATOR) Cholesterol, POC 194 mg/dL HDL, POC 30 mg/dL Triglycerides, POC 294 mg/dL LDL Cholesterol POC 105 mg/dL Chol/HDL Ratio, POC 6.5 Non-HDL Cholesterol, POC 164 mg/dL Cholesterol Total, POC 194 mg/dL Capillary blood 03/02/2022 2 :29 PM BLANCHARD GRINDER OPERATOR Anders Morataya MD POINT OF CARE TEST ORDERABLES Final Result * COLONOSCOPY REPORT (09/03/2016) Anatomical Region Laterality Modality Other us Provider Scanning GI PROCEDURE ORDERABLES Final Result * CT Abdomen Pelvis W Contrast (01/21/2015 11:30 AM BLANCHARD GRINDER OPERATOR) Anatomical Region Laterality Modality Body N/A Computed Tomogra phy 01/21/2015 11:3 0 AM BLANCHARD GRINDER OPERATOR Narrative 01/21/2015 1:10 PM BLANCHARD GRINDER OPERATOR DATE OF EXAM: Jan 21 2015 11:30AM Acc#: [id number] ECT 0074 - CT Abd/Pel W DIAGNOSIS: [...] WITHOUT EVIDENCE OF PELVIC OR ABDOMINAL LYMPHADENOPATHY. COLORS CUSTODIAN: LB3 TRANSCRIBE DATE/TIME: Jan 21 2015 12:55P RADIOLOGIST: DAKOTA WARE M.D. READ ON: Jan 21 2015 12:41P ORDERING DR: RENETTA PERRY M.D. THIS DOCUMENT HAS BEEN ELECTRONICALLY SIGNED BY: DAKOTA WARE M.D. ON: Jan 21 2015 1:10P Attending: RENETTA PERRY Requesting: RENETTA PERRY Requesting Attending Attending ID: [id number] Requesting ID: [id number] Report To 1 ID: Report To 1 Name: , Report To 1 FAX: -- Report To 2 ID: Report To 2 Name: , Report To 2 FAX: -- NextGen Order #: Procedure Note Provider, MD Neli - 06/17/2016 DATE OF EXAM: Jan 21 2015 11:30AM Acc#: [id number] ECT 0074 - CT Abd/Pel W DIAGNOSIS: [...] WITHOUT EVIDENCE OF PELVIC OR ABDOMINAL LYMPHADENOPATHY. COLORS CUSTODIAN: LB3 TRANSCRIBE DATE/TIME: Jan 21 2015 12:55P RADIOLOGIST: DAKOTA WARE M.D. READ ON: Jan 21 2015 12:41P ORDERING DR: RENETTA PERRY M.D. THIS DOCUMENT HAS BEEN ELECTRONICALLY SIGNED BY: DAKOTA WARE M.D. ON: Jan 21 2015 1:10P Attending: RENETTA PERRY Requesting: RENETTA PERRY Requesting Attending Attending ID: [id number] Requesting ID: [id number] Report To 1 ID: Report To 1 Name: , Report To 1 FAX: -- Report To 2 ID: Report To 2 Name: , Report To 2 FAX: -- NextGen Order #: Historical Provider MD RUIZ CT PROCEDURES Final R esult from Last 3 Months or Most Recently Relevant to Health Maintenance Insurance MEDICARE [facility] MEDICARE SUPPLEMENT INSURANCE MEDICARE [facility] MEDICARE SUPPLEMENT INSURANCE MEDICARE [facility] MEDICARE SUPPLEMENT INSURANCE MEDICARE [facility] MEDICARE SUPPLEMENT INSURANCE Care Teams Support Assistant Relationship Specialty Start Date End Date Anders Morataya MD PCP - General 01/03/18 Abilio Villanueva MD [address] [facility] [address] [place] [address] Consulting Physician Radiation Oncology 04/02/20 Abilio Villanueva MD [address] [facility] [address] [place] [address] Radiation Oncologist Radiation Oncology 06/17/20
--- OUTSIDE RECORDS SUMMARY | 2024-08-05 04:08 | XMS_ITS ---
Author Organization [address] [facility] Address [address] [place] [address] Care Team Providers Care Community Organization Aide Name Role Phone Hood JAIMES, Anders Primary Care Provider Unavailab Keely Baker Unavailable [phone] REASON FOR VISIT f/u toe wound Encounters Encounter Location Date Provider Diagnosis [address] [facility] [address] [place] [address] 08/01/2024 Keely Abdul Plan Of Treatment Next Appt Details Provider Name:Keely Abdul, 08/07/2024 01:10:00 PM, [address] [place] [address], [address], [place], [address], Provider Name:Keely Abdul, 09/13/2024 10:40:00 AM, [address], [facility] [address], [place], [address], Progress Notes * Conner VAUGHNDOB:[birth year] (78 yo M)Acc No.[id number]:08/01/2024 Progress Notes Patient: Conner DAS Provider: Alvarez Abdul DPM :1945 A ge:78 Y S ex:Male Date:08/01/2024 Address[facility] Pcp:Anders Morataya MD Subjective: * Chief Complaints: * 1 . F/u toe wound. * Medical History: Objective: * Vitals: Assessment: Plan: * Treatment: * Images: * Electronic signature of Kristy Abdul DPM on 08/05/2024 at 04:07 AM CDT Sign off status: Pending * Provider: Alvarez Abdul DPM Date: 08/01/2024 Generated for Yohana watt/Moo/Rachael on: 08/05/2024 04:07 AM CDT
--- OUTSIDE RECORDS SUMMARY | 2024-08-05 04:09 | XMS_ITS | Patient Health Record ---
Author Organization 1 OF Dustin phan [facility] Address [address] [address] [place] [address] Care Team Providers Care Art History Instructor Name Role Phone Anders Morataya MD Primary Care Provider Unavailab bennett Franko Keely Unavailable [phone] Allergies Allergen (clinical drug ingredient) Drug/Non Drug Allergy documented on EMR Reaction Allergy Type Onset Date Status sulfamethoxazole / trimethoprim Bactrim Unknown Drug Allergy Active Penicillin Unknown Drug Allergy Active Substance with sulfonamide structure and antibacterial mechanism of action (substance) Sulfa Antibiotics Unknown Drug Allergy A ctive Reason For Referral No Information Medications Medication SIG (Take, Route, Frequency, Duration) Notes Start Date End Date Status OneTouch Ultra - USE TO TEST ONCE GERBER LY In Vitro for 90 Active Donepezil HCl 10 MG Oral for 90 Active Losartan Potassium 50 MG Oral for 90 Active metFORMIN HCl 1000 MG Oral for 90 Not-Taking Vitamin D Active Fenofibrate 145 MG TAKE 1 TABLET BY GRAYSON TH EVERY DAY Oral for 90 Active Vitamin B12 Active Mirtazapine Active Memantine HCl Active Social History Tobacco Use: Social History Observation Description Date Details (start date - stop date) Never Smoker NA - NA Tobacco Use/Smoking Question Answer Notes Are you a nonsmoker Problems Problem Type SNOMED Code ICD Code Onset Dates Problem Status W/U Status Risk Notes Problem [id number] Type 2 diabetes mellitus with other diabetic neurological complication (E11.49) Active confirmed Problem 067934030 Ulcer of right foot, limited to breakdown of skin (L97.511) Active confirmed Problem 614117636 Hammertoe of right foot (M20.41) Active confirmed Problem [id number] Skin ulcer of toe of right foot, limited to breakdown of skin (L97.511) Active confirmed Vital Signs Height 70 in 07/26/2024 Weight 207 lbs 07/26/2024 BMI 29.7 kg/m2 07/26/2024 Encounters Encounter Location Date Provider Diagnosis 1 OF Dustin [place] [address] [place] [address] [place] [address] 07/26/2024 Keely Abdul [address] OF [place] [address] [place] [address] 09/12/2023 Keely Abdul Onychogryphosis L60. 2 ; Type 2 diabetes mellitus with other diabetic neurological complication E11.49 ; Callus of foot L84 ; Skin ulcer of toe of right foot, limited to breakdown of skin L97.511 and Hammertoe of right foot M20.41 1 OF Dustin [place] [address] [place] [address] [place] [address] 09/19/2023 Keely Abdul Type 2 diabetes osman itus with other diabetic neurological complication E11.49 ; Skin ulcer of toe of right foot, limited to breakdown of skin L97.511 and Hammertoe of right foot M20.41 1 OF [address]in [place] [address] [place] [address] 09/29/2023 Keely Abdul Type 2 diabetes osman itus with other diabetic neurological complication E11.49 ; Skin ulcer of toe of right foot, limited to breakdown of skin L97.511 and Hammertoe of right foot M20.41 [address] OF [place] [address] [place] [address] 11/28/2023 Keely Abdul Type 2 diabetes osman itus with other diabetic neurological complication E11.49 ; Hammertoe of right foot M20.41 ; Onychogryphosis L60.2 and Callus of foot L84 1 OF Dustin [place] [address] [place] [address] 02/06/2024 Keely Abdul Type 2 diabetes osman itus with other diabetic neurological complication E11.49 ; Hammertoe of right foot M20.41 ; Onychogryphosis L60.2 and Callus of foot L84 1 OF Dustin Prieto [facility] [address] [address] 04/26/2024 Keely Abdul Type 2 diabetes osman itus with other diabetic neurological complication E11.49 ; Hammertoe of right foot M20.41 ; Onychogryphosis L60.2 ; Callus of foot L84 and Xerosis of skin L85.3 1 OF Dustin Prieto [facility] [address] [address] 07/05/2024 Keely Abdul Type 2 diabetes osman itus with other diabetic neurological complication E11.49 ; Hammertoe of right foot M20.41 ; Onychogryphosis L60.2 ; Callus of foot L84 and Open wound of toe, initial encounter S91.109A 1 OF Dustin Prieto [facility] [address] [address] 09/13/2023 Keely Abdul Assessments Encounter Date Diagnosis (ICD Code) Assessment Notes Treatment Notes Treatment Clinical Notes Section Notes 09/12/2023 Onychogryphosis (ICD-10 - L60.2) Considering the associated comorbidities and physical exam findings today, this patient is at substantial risk of developing serious foot complications in the absence of regular and professional palliative foot care. 09/19/2023 Type 2 diabetes mellitus with other diabetic neurological complication (ICD-10 - E11.49) 09/29/2023 Type 2 diabetes mellitus with other diabetic neurological complication (ICD-10 - E11.49) 11/28/2023 Type 2 diabetes mellitus with other diabetic neurological complication (ICD-10 - E11.49) 11/28/2023 Hammertoe of right foot (ICD-10 - M20.41) 02/06/2024 Type 2 diabetes mellitus with other diabetic neurological complication (ICD-10 - E11.49) 04/26/2024 Type 2 diabetes mellitus with other diabetic neurological complication (ICD-10 - E11.49) 04/26/2024 Hammertoe of right foot (ICD-10 - M20.41) 07/05/2024 Type 2 diabetes mellitus with other diabetic neurological complication (ICD-10 - E11.49) 07/05/2024 Hammertoe of right foot (ICD-10 - M20.41) 07/05/2024 Onychogryphosis (ICD-10 - L60.2) Considering the associated comorbidities and physical exam findings today, this patient is at substantial risk of developing serious foot complications in the absence of regular and professional palliative foot care. 11/28/2023 Onychogryphosis (ICD-10 - L60.2) Considering the associated comorbidities and physical exam findings today, this patient is at substantial risk of developing serious foot complications in the absence of regular and professional palliative foot care. 02/06/2024 Hammertoe of right foot (ICD-10 - M20.41) 04/26/2024 Onychogryphosis (ICD-10 - L60.2) Considering the associated comorbidities and physical exam findings today, this patient is at substantial risk of developing serious foot complications in the absence of regular and professional palliative foot care. 09/29/2023 Skin ulcer of toe of right foot, limited to breakdown of skin (ICD-10 - L97.511) Evaluation today included a review of medical history, review of systems, discussion of exam findings, and review of diagnoses and treatment options. His wound is healed. His can still apply a dressing on the toe while the skin matures. A toe taping was applied on the right second toe to reduce pressure to the tip of the toe. He was advised to leave this on for as long as possible. His states they are going to hold off on the flexor tenotomy at this time. She can also use a gel toe cushion consistently on his toe. They were advised to monitor for any signs of reopening prior to his next visit and should call with any issues. 09/19/2023 Skin ulcer of toe of right foot, limited to breakdown of skin (ICD-10 - L97.511) Evaluation today included a review of medical history, review of systems, discussion of exam findings, and review of diagnoses and treatment options. A wound debridement was performed. I recommended continued daily application of medihoney. A toe taping was applied on the right second toe to reduce pressure to the tip of the toe. He was advised to leave this on for as long as possible. He was advised to stay off his foot as much as he can for healing. I discussed with his that he may benefit from a flexor tenotomy. I discussed what this would consist of. I discussed that she can talk it over with him and let me know if it is something they would like to proceed with. He may need an GIRISH performed prior to having this done to check his blood flow. He was educated on signs of infection and should call with any issues prior to the next visit. 09/12/2023 Callus of foot (ICD-10 - L84) 09/12/2023 Type 2 diabetes mellitus with other diabetic neurological complication (ICD-10 - E11.49) 09/12/2023 Skin ulcer of toe of right foot, limited to breakdown of skin (ICD-10 - L97.511) Evaluation today included a review of medical history, review of systems, discussion of exam findings, and review of diagnoses and treatment options. A wound debridement was performed. I recommended daily application of medihoney. His was advised that this is available [id number]-nlzyuky as manuka honey, if the insurance does not cover it. She was advised to apply this daily with a dry dressing. A toe taping was applied on the right second toe to reduce pressure to the tip of the toe. He was advised to leave this on for as long as possible. He was advised to stay off his foot as much as he can for healing. He was educated on signs of infection and should call with any issues prior to the next visit. 09/19/2023 Hammertoe of right foot (ICD-10 - M20.41) 09/29/2023 Hammertoe of right foot (ICD-10 - M20.41) 04/26/2024 Callus of foot (ICD-10 - L84) 02/06/2024 Onychogryphosis (ICD-10 - L60.2) Considering the associated comorbidities and physical exam findings today, this patient is at substantial risk of developing serious foot complications in the absence of regular and professional palliative foot care. 11/28/2023 Callus of foot (ICD-10 - L84) 07/05/2024 Callus of foot (ICD-10 - L84) 07/05/2024 Open wound of toe, initial encounter (ICD-10 - S91.109A) Evaluation today included a review of medical history, review of systems, discussion of exam findings, and review of diagnoses and treatment options. Recommended application of antibiotic ointment and a Band-Aid daily until the wound is healed. His was educated on signs of infection and will call with any issues. 04/26/2024 Xerosis of skin (ICD-10 - L85.3) Evaluation today included a review of medical history, review of systems, discussion of exam findings, and review of diagnoses and treatment options. Discussed dry skin of feet and increased risk of infections and wounds when dry skin is present. Encouraged management of dry skin with daily application of lotion. 02/06/2024 Callus of foot (ICD-10 - L84) 09/12/2023 Hammertoe of right foot (ICD-10 - M20.41) 07/05/2024 Other Plan Of Treatment Next Appt Details Provider Name:Keely Abdul, 08/07/2024 01:10:00 PM, [address], [address], [place], [address], Provider Name:Keely Rileya, 09/13/2024 10:40:00 AM, [address], [address], [place], [address], Insurance Providers Payer Name Payer Address Payer Phone Subscriber Number Group Number Insured Name Patient Relationship to Insured Coverage Start Date Coverage End Date Medicare [address] [facility] [place], [place] [id number] Conner Vilchis Self - patient is the insured [employer] Supplemental Claims [address] [place] [id number] Conner Vilchis Self - patient is the insured Medical (General) History Medical History History ICD Code Arthritis, Prostate Cancer, Diabetes, HB P, Neuropathy, Alzheimers Surgical History Surgery Date(Month/Year)
--- OUTSIDE RECORDS SUMMARY | 2024-08-05 04:09 | XMS_ITS | Encounter Summary ---
Author Organization [facility] Address [address] [place] [address] Phone Care Team Providers Care Cyber Intel Planner Name Role Phone Anders Morataya MD Primary Care Provider [phone] Abilio Villanueva MD Unavailable [phone] Abilio Villanueva MD Unavailable [phone] Encounter Details Date Type Department Care Team (Late st Contact Info) Description 11/08/2022 Orders Only GARCIA OS PMR [phone] Scanning, Provider Social History Tobacco Use Types Packs/Day Years Used Date Smoking Tobacco: Never Smokeless Tobacco: Never Alcohol Use Standard Drinks/Week Comments Never 0 (1 standard drink = 0.6 oz pur e alcohol) AUDIT-C Answer Date Recorded Q1: How often do you have a drink containing alc ohol? Never 06/21/2021 Average Number of Drinks Not on file 022 Q3: How often do you have si x or more drinks on one occasion? Never 06/21/2021 Sex and Gender Information Value Date Recorded Sex Assigned at Not on file Legal Sex Male 4:10 AM DIRECTOR OF EVENTS Gender Identity Male 01/20/2021 7:01 PM DIRECTOR OF EVENTS Sexual Orientation Not on file documented as of this encounter Plan of Treatment Not on file documented as of this encounter Procedures Procedure Name Priority Date/Time Associated Diagnosis Comments SCAN - RADIOLOGY/IMAGING 11/08/2022 documented in this encounter Results * SCAN - RADIOLOGY/IMAGING (11/08/2022) Anatomical Region Laterality Modality Other us Provider Scanning Final Result documented in this encounter Visit Diagnoses Not on filedocumented in this encounter Additional Health Concerns Infection Onset Date Last Indicated Resolved Time COVID: Suspected 01/16/2024 01/16/2024 01/16/2024 11:59 AM DIRECTOR OF EVENTS COVID19 01/16/2024 01/16/2024 01/26/2024 3:05 AM DIRECTOR OF EVENTS COVID: Recovered Comment:Added based on recent COVID infection. 01/26/2024 02/07/2024 04/25/2024 3:[address] documented as of this encounter Care Teams Cyber Intel Planner Relationship Specialty Start Date End Date Anders Morataya MD PCP - General 01/03/18 Abilio Villanueva MD [address] [place] [address] Consulting Physician Radiation Oncology 04/02/20 Abilio Villanueva MD [address] [place] [address] Radiation Oncologist Radiation Oncology 06/17/20 documented as of this encounter
--- OUTSIDE RECORDS SUMMARY | 2024-08-05 04:09 | XMS_ITS ---
Author Organization 1 OF Dustin phan [facility] Address [address] [facility] [address] [place] [address] Care Team Providers Care Clean Out Driller Helper Name Role Phone Anders Morataya MD Primary Care Provider Unavailab Keely Baker Unavailable [phone] Allergies Allergen (clinical drug ingredient) Drug/Non Drug Allergy documented on EMR Reaction Allergy Type Onset Date Status sulfamethoxazole / trimethoprim Bactrim Unknown Drug Allergy Active Penicillin Unknown Drug Allergy Active Substance with sulfonamide structure and antibacterial mechanism of action (substance) Sulfa Antibiotics Unknown Drug Allergy A ctive REASON FOR VISIT Ingrown Nail Medications Medication SIG (Take, Route, Frequency, Duration) Notes Start Date End Date Status OneTouch Ultra - USE TO TEST ONCE GERBER LY In Vitro for 90 Active Donepezil HCl 10 MG Oral for 90 Active Losartan Potassium 50 MG Oral for 90 Active metFORMIN HCl 1000 MG Oral for 90 Not-Taking Fenofibrate 145 MG TAKE 1 TABLET BY GRAYSON TH EVERY DAY Oral for 90 Active Vitamin D Active Vitamin B12 Active Mirtazapine Active Memantine HCl Active Vital Signs Weight 207 lbs 07/26/2024 Height 70 in 07/26/2024 BMI 29.7 kg/m2 07/26/2024 Encounters Encounter Location Date Provider Diagnosis 1 OF Dustin Ordonez [facility] [address] [address] 07/26/2024 Keely Abdul Plan Of Treatment Next Appt Details Provider Name:Keely Abdul, 08/07/2024 01:10:00 PM, [address] [place] [address], [address], [place], [address], Provider Name:Keely Abdul, 09/13/2024 10:40:00 AM, [address], [place], [address], Progress Notes * Conner VAUGHNDOB:[birth year] (78 yo M)Acc No.[id number]:07/26/2024 Progress Notes Patient: Conner DAS Provider: Alvarez Abdul DPM :1945 A ge:78 Y S ex:Male Date:07/26/2024 Address:[facility] Pcp:Anders Morataya MD Subjective: * Chief Complaints: * 1 . Ingrown Nail. * HPI: Javon Patterson assisting with visit:: Chart Prep Herbert ivana. HPI/Rooming: Nida salas reason for visit:: New Problem: [age] y ear old male RTO with chief complaint of left hallux nail pain. Giving some drainage and puss pockets. HE states this happened right after his last [facility] visit.. * Medical History: A rthritis, Prostate Cancer, Diabetes, HBP, Neuropathy, Alzheimers. * Surgical History: D enies Past Surgical History. * Hospitalization/Major Diagno stic Procedure: D enies Past Hospitalization. * Family History: Bile Duct Cancer, Colon Cancer, Diabetes. * Medications: T aking Mirtazapine , Taking Memantine HCl , Taking Vitamin B12 , Taking Vitamin D , Taking Fenofibrate 145 MG Tablet TAKE 1 TABLET BY MOUTH EVERY DAY Oral , Taking OneTouch Ultra - Strip USE TO TEST ONCE DAILY In Vitro , Taking Donepezil HCl 10 MG Tablet Oral , Taking Losartan Potassium 50 MG Tablet Oral , Not-Taking/PRN metFORMIN HCl 1000 MG Tablet Oral , Medication List reviewed and reconciled with the patient * Allergies: P enicillin, Sulfa Antibiotics, Bactrim. Objective: * Vitals: W t:207lbs, Wt-k.89 kg, Ht:70in, BMI:29.7Index. Assessment: Plan: * Treatment: * Preventive Medicine: Counseling: C are goal follow-up plan: BMI counseling provided to patient:?Lifestyle education Screenings: F ALL RISK SCREENING Fall Risk Assessment: T wo or more falls with injury in the past year * Images: * Electronic signature of Kristy Abdul DPM on 08/05/2024 at 04:08 AM CDT Sign off status: Pending * Provider: Alvarez Abdul DPM Date: 0 07/26/2024 Generated for Yohana watt/Moo/Rachael on: 0 08/05/2024 04:08 AM CDT History and Physical Notes * HPI (History of Present Illness) Category Sub-Category Detail Notes Category Not es Primary reason for visit: New Problem: 78 yea r old male RTO with chief complaint of left hallux nail pain. Giving some drainage and puss pockets. HE states this happened right after his last [facility] visit. KIANA assisting with visit: HPI/Rooming: Sebastian Chart Prep Bee
--- OUTSIDE RECORDS SUMMARY | 2024-08-05 04:09 | XMS_ITS | Clinical Summary ---
Author Organization [facility] Address [address] [place] [address] Phone Care Team Providers Care Benefits Analyst Name Role Phone Anders Morataya MD Primary Care Provider Laci Perry MD Unavailable Allergies Active Allergy Reactions Criticality Noted Date Comments Penicillins Other (see Comments) 04/17/2021 Sulfa Antibiotics Other (see Comments) 04/17/19 22 Medications fenofibrate (TRICOR) 145 MG Tablet TAKE 1 TABLET BY MOUTH ONCE DAILY 2 Active metFORMIN (GLUCOPHAGE) 1000 MG Tablet 1 Active losartan (COZAAR) 50 MG Tablet 1 Active glipiZIDE (GLUCOTROL XL) 10 MG TABLET SR 24 HR Take 10 mg by mouth. Active insulin glargine (Basaglar KwikPen) 100 UNIT/ML Solution Pen-injector Basaglar KwikPen U-100 Insulin 100 unit/mL (3 mL) subcutaneous INJECT BELOW THE SKIN 80-100 UNITS DAILY Active Lancets (OneTouch Delica Plus [id number]) Misc USE TO TEST ONCE DAILY 1 Active OneTouch Ultra Strip USE TO TEST ONCE DAILY 1 Active Calcium Carb-Cholecalci ferol 500-400 MG-UNIT Chewable Tablet Take 1 Tablet by mouth. Active donepezil (ARICEPT) 5 MG Tablet 10 mg. 2 Active Cyanocobalamin (VITAMIN B12 PO) Take 2,500 mcg by mouth. Active Active Problems Problem Noted Date Diagnosed Date Prostate cancer 04/17/2021 Kidney stone 04/17/2021 Hypertension 04/17/2021 Diabetes mellitus 04/17/2021 Erectile dysfunction 04/17/2021 Stress incontinence, male 04/17/2021 Gout 04/17/2021 Gross hematuria 04/17/2021 BPH (benign prostatic hyperplasia) 04/17/2021 Prostate nodule without urinary obstruction 03/31 Family History Medical History Relation Name Comments Prostate Cancer Brother Heart Attack Father Relation Name Status Comments Brother Father GASTROINTESTIAL PROBLEMS Social History Tobacco Use Types Packs/Day Years Used Date Smoking Tobacco: Never Smokeless Tobacco: Never Tobacco Cessation:Counseling Given: No Alcohol Use Standard Drinks/Week Comments Never 0 (1 standard drink = 0.6 oz pur e alcohol) Sex and Gender Information Value Date Recorded Sex Assigned at Not on file Legal Sex Male 10:52 AM RESIDENCE HALL DIRECTOR Gender Identity Not on file Sexual Orientation Not on file Last Filed Vital Signs Vital Sign Reading Time Taken Comments Blood Pressure 146/84 01/27/2023 9:21 AM RESIDENCE HALL DIRECTOR Pulse 65 01/27/2023 9:21 AM RESIDENCE HALL DIRECTOR Temperature 36.4 C (97.5 F) 01/27/2023 9:21 AM RESIDENCE HALL DIRECTOR Respiratory Rate 19 01/27/2023 9:21 AM RESIDENCE HALL DIRECTOR Oxygen Saturation 99% 01/27/2023 9:21 AM RESIDENCE HALL DIRECTOR Inhaled Oxygen Concentration - - Weight 102.5 kg (226 lb) 01/27/2023 9:21 AM RESIDENCE HALL DIRECTOR Height 177.8 cm (5' 10) 01/27/2023 9:21 AM RESIDENCE HALL DIRECTOR Body Mass Index 32.43 01/27/2023 9:21 AM RESIDENCE HALL DIRECTOR Plan of Treatment Health Maintenance Due Date Last Done Comments Diabetes: Eye Exam 1945 Diabetes: Foot Exam 1945 Hepatitis C Virus (HCV) Screening 1945 TdaP Immunization 1945 Diabetes: Nephropathy Screening 10/13/1965 Zoster Immunization (1 of 2) 10/13/1966 Pneumococcal Immunization (50+ years) (2 of 2 - PPSV23) 03/13/2019 01/16/2019 Respiratory Syncytial Virus (RSV) Immunization (Adult) (1 - 1-dose 75+ series) 10/13/2022 Diabetes: Hemoglobin A1c 07/15/20232 023, 11/04/2022, 03/02/2022 SARS-COV-2 Immunization ( season) 2023 12/17/2021, 12/19/2020, 05/08/2020, Additional history exists Influenza Immunization (Season Ended) 2024 01/17/2023, 01/09/2022, 12/05/2020, Additional history exists Hepatitis B Immunization Aged Out No longer eligible based on patient's age to complete this topic Human Papillomavirus (HPV) Immunization Aged Out No longer eligible based on patient's age to complete this topic Meningococcal Immunization (ACWY) Aged Out No longer eligible based on patient's age to complete this topic Rotavirus Immunization Aged Out No lo nger eligible based on patient's age to complete this topic Insurance MEDICARE [employer] MEDICARE SUP Advance Directives Documents on File Type Date Recorded Patient Plug Drill Operator Expl anation Other Advance Directive 06/12/2021 3:08 PM KUB ORDER Advance Care Planning Discussion 04/21/2021 9:18 AM KUB report from [facility] Advance Care Planning Discussion 04/17/2021 11:25 AM [facility] OFFICE NOTES Care Teams Benefits Analyst Relationship Specialty Start Date End Date Anders Morataya MD [address] [facility] [address] [address] PCP - General Internal Medicine 04/08/21 Laci Perry MD [address] [facility] [address] [place] [address] Consulting Physician Urology 04/29/22
--- OUTSIDE RECORDS SUMMARY | 2024-08-05 04:09 | XMS_ITS | Continuity of Care Document ---
Author Organization [facility] Address [address] [place] [address] [place] [address] Phone Care Team Providers Care Equity Director Name Role Phone Unavailable Unavailable Unavailable Advance Directives Directive Yes / No Effective Date File Name No Information Encounters Encounter Description Practice Location Reason(s) For Visit Diagnoses Date Provider Providers Copied on Encounter [facility], [address], [place], [place], [id number], [place] tel:[phone] [facility] No Information Jul- 8200 0 No Information Family History Family Member Type Diagnosis Age At Onset No Information Payers Payer name Insurance type Covered libertarian ID Authoriza tion(s) General [employer] CI [id number] Social History Type Description Quantity Date Captured Comments Sex Male Smoking Status No Information Chief Complaint And Reason For Visit No Information Reason For Referral Reason For Referral No Information History Of Present Illness Encounter Date Complaint History Of Prese nt Illness No Information Functional Status Date Functional Assessmen t No Information Instructions Date Instruction Additional Infor mation No Information Assessments Type Assessment Date No Information Patient Care Teams Name Effective Dates (start - stop) Status Members No Information
--- OUTSIDE RECORDS SUMMARY | 2024-08-05 04:09 | XMS_ITS | Encounter Summary ---
Author Organization [facility] Healthcare Address [address] [place] [address] Care Team Providers Care Clothing Examiner Name Role Phone Anders Morataya MD Primary Care Provider [phone] Abilio Villanueva MD Unavailable [phone] Abilio Villanueva MD Unavailable [phone] Encounter Details Date Type Department Care Team (Late st Contact Info) Description 03/24/2020 Telephone [facility] [address] [place] [id number] Ayanna Ross, RT Social History Tobacco Use Types Packs/Day Years Used Date Smoking Tobacco: Former Smokeless Tobacco: Never Alcohol Use Standard Drinks/Week Comments Never 0 (1 standard drink = 0.6 oz pur e alcohol) AUDIT-C Answer Date Recorded Frequency of Alcohol Consumption Never 09/06/2018 Average Number of Drinks Not on file 019 Frequency of Binge Drinking Not on file 08/28 Sex and Gender Information Value Date Recorded Sex Assigned at Not on file Legal Sex Male 4:10 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 07/01/2021 07/01/2021 10/29/2021 3:05 AM C DT COVID: Suspected 01/16/2024 01/16/2024 01/16/2024 11:59 AM WIRELESS SALES CONSULTANT COVID19 01/16/2024 01/16/2024 01/26/2024 3:05 AM WIRELESS SALES CONSULTANT COVID: Recovered Comment:Added based on recent COVID infection. 01/26/2024 02/07/2024 04/25/2024 3:[address] documented as of this encounter Care Teams Clothing Examiner Relationship Specialty Start Date End Date Anders Morataya MD PCP - General 01/03/18 Abilio Villanueva MD [address] [place] [address] Consulting Physician Radiation Oncology 04/02/20 Abilio Villanueva MD [address] [place] [address] Radiation Oncologist Radiation Oncology 06/17/20 documented as of this encounter
[2024-08-05 04:26] VITALS: BP 167/68; PULSE 58; RESP 14; O2SAT 100
[2024-08-05 04:38] VITALS: PULSE 58; O2SAT 98
--- NOTE | 2024-08-05 04:41 | ED.CHESTPAIN ---
HPI - Chest Pain General Chief Complaint: Chest Pain Stated Complaint: Chest, abd, pelvic pain sick, sob Time Seen by Provider: 08/05/24 04:25 History of Present Illness HPI narrative: 78-year-old male with history of Parkinson's dementia, hypertension, hyperlipidemia. He presents with his . Patient states that he has no complaints but his said that he was complaining of chest and abdominal pain for last few days. Patient denies this and states that he feels fine. Patient denies any nausea, vomiting, abdominal pain, diarrhea, constipation, chest pain, shortness a breath. He is otherwise comfortable appearing in the room. No recent hospital visits or admissions. No trauma or injury. His states that he does have dimension frequently paces and is awake during all hours a night and has been vaguely complaining of chest abdominal and back pain intermittently and she wants to make sure he is okay. Related Data Home Medications ?Medication ?Instructions ?Recorded ?Confirmed ?Last Taken ?Type donepezil 10 mg tablet 10 mg PO HS 04/03/22 12/23/22 Unknown History fenofibrate nanocrystallized 145 145 mg PO DAILY 04/03/22 12/23/22 Unknown History mg tablet losartan 50 mg tablet 50 mg PO DAILY 04/03/22 12/23/22 Unknown History metformin 1,000 mg tablet 1,000 mg PO BID 04/03/22 12/23/22 Unknown History cholecalciferol (vitamin D3) 25 25 mcg PO DAILY 12/23/22 12/23/22 Unknown History mcg (1,000 unit) capsule (Vitamin D3) cyanocobalamin (vitamin B-12) 2,500 mcg sublingual DAILY 12/23/22 12/23/22 Unknown History 2,500 mcg sublingual tablet (Vitamin B-12) Allergies Allergy/AdvReac Type Severity Reaction Status Date / Time Penicillins Allergy Other Verified 12/12/23 01:03 Sulfa (Sulfonamide Allergy Nausea and Verified 12/12/23 01:03 Antibiotics) Vomiting Review of Systems Review of Systems: As reviewed [facility] Past Medical History Medical History Gout Elevated cholesterol Diabetes Kidney stones Surgical History Surgical History History of lithotripsy H/O arthroscopy of right knee Social History Social History Smoking status: Never smoker Alcohol intake: never Substance use: never Substance use type: does not use Lack of Transportation: No Lack of Food: Never True Current Housing: I Have Housing Concerned About Future Housing: No Difficulty Paying Gas/Electric Bills: No Difficulty Paying for Meds: No Currently Unemployed: No Education: Associate Degree Difficulty w/ Childcare or Family Care: No Living arrangements: with family Gender identity (if verbalized by the patient): Male Spiritual care concerns: No Exam Narrative: GENERAL: [Well-appearing, well-nourished, and in no acute distress.] HEAD: [Normocephalic, atraumatic.] EYES: [PERRLA and EOMI.] ENT: Nares clear, no rhinorrhea or epistaxis. Mucous membranes moist. NECK: Supple. CHEST: [Clear to auscultation. No respiratory distress.] HEART: [Regular rate and rhythm]. No murmur heard. [Normal peripheral pulses.] ABDOMEN: [Soft, nondistended], [nontender], [No rigidity or guarding] EXTREMITIES: Normal range of motion. [No edema.] SKIN: Warm, dry, no rash. NEURO: [No focal deficits]. Alert and oriented at baseline PSYCH: [Normal mood and affect.] Course Vital Signs Vital signs: Vital Signs Pulse Rate 58 L 08/05/24 04:26 Respiratory Rate 14 08/05/24 04:26 Blood Pressure 167/68 H 08/05/24 04:26 Pulse Oximetry 100 08/05/24 04:26 Oxygen Delivery Room Air 08/05/24 04:26 Pulse Rate 62 08/05/24 06:22 Respiratory Rate 24 H 08/05/24 06:22 Blood Pressure 168/99 H 08/05/24 06:22 Pulse Oximetry 96 08/05/24 06:22 Oxygen Delivery Room Air 08/05/24 04:38 MDM - Chest Pain MDM Narrative Medical decision making narrative: 78-year-old male with a past medical history including Parkinson's dementia, hypertension. Patient presents to the emergency department because his is concerned that he was complaining of chest, back and abdominal pain intermittently for last few days. Patient himself denies this and has no complaints. He denies any chest pain, abdominal pain or any symptoms at this time. He states he feels fine. He has a soft nontender nondistended abdomen, no tenderness with pushing on his chest or abdominal cavity. His vital signs show some stable hypertension but no tachypnea, tachycardia, hypoxia. Given reported history of vague complaints such as chest abdominal back pain workup was ordered including EKG, chest x-ray, troponin, urinalysis, CBC, CMP, lipase. Given patient's overall well appearance and patient himself denies any complaints he otherwise likely can be discharged home if no remarkable findings on workup. Patient's chest x-ray shows no acute consolidation or pneumonia, no pulmonary edema. Normal cardiac silhouette, no acute interval change compared to prior x-rays. Workup shows no leukocytosis or significant anemia worse than baseline. Normal platelet count. Normal coagulation panel. Normal renal function, normal electrolytes, normal troponin. Normal LFTs. Negative lipase. EKG shows sinus rhythm, no interval change compared to prior EKG. Patient remains asymptomatic and is expressing desire for discharge. Given the lack of any acute findings or focal concerns with his unremarkable workup and normal exam I believe he can be safely discharged with return precautions and PCP follow-up. Family comfortable. Medical Records Data Attestation: I reviewed the patient's medical records. Lab Data Attestation: I reviewed the patient's lab results. 08/05/24 04:35 08/05/24 04:35 Labs: Lab Results 08/05/24 Range/Units 04:35 WBC 6.2 (4.5-10.0) K/mm3 RBC 4.22 L (4.6-6.20) M/mm3 Hgb 12.4 L (14.0-18.0) g/dL Hct 37.3 L (42.0-52.0) % MCV 88.4 (80-100) fl MCH 29.4 (26-34) pg MCHC 33.2 (32-36) g/dl RDW 15.4 H (11.5-14.5) % Plt Count 213 (150-375) k/mm3 MPV 10.7 H (7.4-10.4) fl Immature Gran % (Auto) 0.6 H (0-0.5) % Neut % (Auto) 59.4 (45.5-73.1) % Lymph % (Auto) 26.2 (18.3-44.2) % [place] % (Auto) 7.7 (2.6-8.5) % Eos % (Auto) 4.8 H (0-4.4) % Baso % (Auto) 1.3 H (0.2-1.2) % Lymph # (Auto) 1.63 (0.9-3.2) K/mm3 [place] # (Auto) 0.5 (0.1-0.6) K/mm3 Eos # (Auto) 0.3 (0-0.3) K/mm3 Baso # (Auto) 0.1 (0.0-0.1) K/mm3 Abs Immat Gran (auto) 0.04 H (0.00-0.031) K/mm3 Absolute Neuts (auto) 3.7 (1.3-6.7) K/mm3 Absolute Nucleated RBC 0.000 (0.0-0.012) K/mm3 Nucleated RBC % 0.0 (0.0-0.2) % PT 13.5 (11.1-14.7) Seconds INR 1.0 APTT 31.4 (22.3-36.8) Seconds Sodium 140 (137-145) mmol/L Potassium 3.7 (3.4-5.0) mmol/L Chloride 106 (98-107) mmol/L Carbon Dioxide 24 (22-30) mmol/L Anion Gap 10 (4-12) mmol/L BUN 20 (9-20) mg/dL Creatinine 1.13 (0.7-1.3) mg/dL Estim Creat Clear Calc 49 ml/min Estimated GFR > 60 (59 - ) Glucose 83 (65-110) mg/dL Calcium 9.8 (8.4-10.2) mg/dL Total Bilirubin 1.1 (0.2-1.3) mg/dL AST 30 (17-59) U/L ALT 15 (6-50) U/L Alkaline Phosphatase 41 (38-126) U/L Troponin I < 0.012 (0.000-0.034) ng/mL Total Protein 7.3 (6.3-8.2) g/dL Albumin 4.1 (3.5-5.1) g/dL Lipase 57 (23-300) U/L Imaging Data Attestation: I personally reviewed and interpreted this imaging study as follows: My impression: No acute interval change compared to prior x-ray, no pneumonia. Discharge Plan Discharge Clinical Impression: Atypical chest pain Patient Disposition: Home Condition: Stable Instructions: Antibiotic Form Additional Instructions: All of your cardiac workup, laboratory assessments, imaging are unremarkable and appear within normal limits. Return with any new or worsening concerns otherwise follow-up with regular doctor outpatient. Patient Language: Yakut Prescriptions: No Action losartan 50 mg tablet 50 mg PO DAILY donepezil 10 mg tablet 10 mg PO HS metformin 1,000 mg tablet 1,000 mg PO BID fenofibrate nanocrystallized 145 mg tablet 145 mg PO DAILY cyanocobalamin (vitamin B-12) [Vitamin B-12] 2,500 mcg Tablet, Sublingual 2,500 mcg SUBLINGUAL DAILY cholecalciferol (vitamin D3) [Vitamin D3] 25 mcg (1,000 unit) Capsule 25 mcg PO DAILY Follow-up/Referrals: Fidelia,Anders Rivas MD [Primary Care Provider] - Time of Disposition: 06:34
--- OUTSIDE RECORDS SUMMARY | 2024-08-05 04:46 | XMS_ITS | Clinical Summary ---
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 Gender Identity Not on file Sexual Orientation Not on file Last Filed Vital Signs Vital Sign Reading Time Taken Comments Blood Pressure 146/84 01/27/2023 9:21 AM GEOSPATIAL ENGINEER Pulse 65 01/27/2023 9:21 AM GEOSPATIAL ENGINEER Temperature 36.4 C (97.5 F) 01/27/2023 9:21 AM GEOSPATIAL ENGINEER Respiratory Rate 19 01/27/2023 9:21 AM GEOSPATIAL ENGINEER Oxygen Saturation 99% 01/27/2023 9:21 AM GEOSPATIAL ENGINEER Inhaled Oxygen Concentration - - Weight 102.5 kg (226 lb) 01/27/2023 9:21 AM GEOSPATIAL ENGINEER Height 177.8 cm (5' 10) 01/27/2023 9:21 AM GEOSPATIAL ENGINEER Body Mass Index 32.43 01/27/2023 9:21 AM GEOSPATIAL ENGINEER Plan of Treatment Health Maintenance Due Date [...] Documents on File Type Date Recorded Patient Manufacturing Storeperson Expl anation Other Advance Directive 06/12/2021 3:08 PM KUB ORDER Advance Care Planning Discussion 04/21/2021 9:18 AM KUB report from [facility] Advance Care Planning Discussion 04/17/2021 11:25 AM [facility] OFFICE NOTES Care Teams Computer Meteorologist Relationship Specialty Start Date End Date Anders Morataya MD [address] [facility] [address] [address] PCP - General Internal Medicine 04/08/21 Lcai Perry MD [address] [facility] [address] [place] [address] Consulting Physician Urology 04/29/22
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
--- OUTSIDE RECORDS SUMMARY | 2024-08-05 04:46 | XMS_ITS | Continuity of Care Document ---
Author Organization [facility] Address [address] [place] [address] [place] [address] Phone Care Team Providers Care Medical Case Manager Name Role Phone Unavailable Unavailable Unavailable Advance Directives Directive Yes / No Effective Date File Name No Information Encounters Encounter Description Practice Location Reason(s) For Visit Diagnoses Date Provider Providers Copied on Encounter Formerly [facility], [address], [place], [place], [id number], [place] tel:[phone] RT[place] [facility] [place] [facility] [place] No Information Jul- 8200 0 No Information Family History Family Member Type Diagnosis Age At Onset No Information Payers Payer name Insurance type Covered republican ID Authoriza tion(s) General [place] [employer] CI [id number] Social History Type Description Quantity Date Captured [...]
--- OUTSIDE RECORDS SUMMARY | 2024-08-05 04:46 | XMS_ITS | Clinical Summary ---
Author Organization [facility] Address [address] [place] [address] Care Team Providers Care Vessel Traffic Officer Name Role Phone Unavailable Primary Care Provider Unavailabl e Source Comments [facility],non-owned Affiliates and Associated Physician Practices is amultiple site organization consisting of ambulatory clinics and hospital sitesin [place], [place], [place] and [place]. This disclosure is being madepursuant to the Care Everywhere program and may not contain all information available regarding this patient. 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
--- OUTSIDE RECORDS SUMMARY | 2024-08-05 04:46 | XMS_ITS | Encounter Summary ---
Author Organization [facility] Address [address] [place] [address] Care Team Providers Care Supervisor Screen Printing Name Role Phone Anders Morataya MD Primary Care Provider Abilio Villanueva MD Unavailable [phone] Abilio Villanueva MD Unavailable [phone] Encounter Details Date Type Department Care Team (Late st Contact Info) Description 03/24/[address] 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 01/26/2024 02/07/2024 04/25/2024 3:[address] documented as of this encounter Care Teams Supervisor Screen Printing Relationship Specialty Start Date End Date Anders Morataya MD PCP - General 01/03/18 Abilio Villanueva MD [address] [place] [address] Consulting Physician Radiation Oncology 04/02/20 Abilio Villanueva MD [address] [place] [address] Radiation Oncologist Radiation Oncology 06/17/20 documented as of this encounter
--- OUTSIDE RECORDS SUMMARY | 2024-08-05 04:46 | XMS_ITS | CONTINUITY OF CARE DOCUMENT ---
Author Name kaye, kaye Address Unknown Organization [facility] Address [address] [place] [address] Phone [phone] Care Team Providers Care Community Service Patrol Officer Name Role Phone Yvan JAIMES, Argenis Unavailable [phone] MEGAN PERRY MD Unavailable MEGAN PERRY MD Unavailable [phone] PROBLEMS Condition Status Date Provider Notes Dyslipidemia [...] In-person encounter Office Visit MEGAN PERRY MD [facility] - In-person encounter Office Visit MEGAN PERRY MD [facility] - In-person encounter Office Visit MEGAN PERRY MD [facility] - In-person encounter Office Visit MEGAN PERRY MD [facility] - In-person encounter Office Visit MEGAN PERRY MD [facility] In-person encounter Office Visit MEGAN PERRY MD [facility] - In-person encounter Office Visit MEGAN PERRY MD [facility] - In-person encounter Office Visit MEGAN PERRY MD [facility] - In-person encounter Office Visit MEGAN PERRY MD [facility] - In-person encounter Office Visit MEGAN PERRY MD [facility] - In-person encounter Office Visit MEGAN PERRY MD [facility] - In-person encounter Office Visit MEGAN PERRY MD [facility] - In-person encounter Office Visit MEGAN PERRY MD [facility] - In-person encounter Office Visit MEGAN PERRY MD [facility] - In-person encounter Office Visit Antonella Mckeon MD [facility] Gout - In-person encounter Office Visit MEGAN PERRY MD [facility] - In-person encounter Office Visit Antonella Mckeon MD [facility] PVDCellulitis, foot, left - In-person encounter Office Visit MEGAN PERRY MD [facility] - In-person encounter Office Visit MEGAN PERRY MD [facility] - In-person encounter Office Visit MEGAN PERRY MD [facility] - In-person encounter Office Visit MEGAN PERRY MD [facility] - In-person encounter Office Visit MEGAN PERRY MD [facility] - In-person encounter Office Visit MEGAN PERRY MD [facility] - In-person encounter Office Visit MEGAN PERRY MD [facility] - In-person encounter Office Visit MEGAN PERRY MD [facility] GoutObesityHTN essentialDiabetes mellitus - In-person encounter Office Visit [facility] - In-person encounter Office Visit [facility] - In-person encounter Office Visit [facility] - In-person encounter Office Visit [facility] - In-person encounter Office Visit [facility] - In-person encounter Office Visit [facility] - In-person encounter Office Visit [facility] - In-person encounter Office Visit [facility] - In-person encounter Office Visit [facility] - In-person encounter Office Visit [facility] VITAL SIGNS Date Observation Value Provider [...] 0-149 High cholesterol, serum 180 mg/dL [facility] [phone]/03/ 22 basophil count, absolute 0.0 x10E3/uL [facility] [...] Not Estab. platelet count 215 X10E3/UL [facility] [phone]/03/ 22 red blood cell distribution width 16.3 [...] [facility] 3.5-5.2 sodium, serum 141 mmol/L [facility] [phone]/03/ 22 urea nitrogen/creatinine ratio, serum 16 [facility] [...] High aspartate aminotransferase (SGOT), serum 19.0 1/L [facility] 0.[facility] - 40.0 alkaline phosphatase, serum 54.0 1/L [facility] 40.0 - 130.0 alanine aminotransferase (SGPT), serum 27.0 1/L [facility] 0.0 - 41.0 protein, total, serum 7.2 g/dL [facility] 6.6 - 8.7 bilirubin, serum, total 0.5 mg/dL [facility] 0.0 - 1.2 urea nitrogen, blood 27.0 mg/dL [facility] 8.0 - 23.0 High blood glucose, random 141.0 mg/dL [facility] 74.0 - 99.0 High red blood cell distribution width, size density 50.8 fL [facility] immature granulocytes, percentage of total cells, blood 1.6 % [facility] nucleated red blood cells as percent of blood leukocytes 0.0 % [facility] red blood cell (erythrocyte) count, per high power field 0.0 10*3/UL [facility] eosinophils as percent of blood leukocytes 3.7 % [facility] neutrophils as percent of blood leukocytes 67.7 % [facility] Absolute Neutrophils 2.9 CELLS/UL [facility] 1.5 - 7.8 basophils as percent of blood leukocytes 1.2 % [facility] Absolute Basophils 0.1 CELLS/UL [facility] 0.0 - 0.2 monocytes as percent of blood leukocytes 9.7 % [facility] Absolute Monocytes 0.4 CELLS/UL [facility] 0.2 - 1.0 lymphocytes as percent of blood leukocytes 16.1 % [facility] Absolute Lymphocytes 0.7 CELLS/UL [facility] 0.9 - 3.9 Low mean platelet volume 11.3 (?) [facility] platelet count 209.0 THOUSAND/UL [facility] 100.0 - [...] High carbon dioxide, venous blood 25.0 mmol/L [facility] 23.0 - 31.0 albumin, serum 4.6 g/dL [facility] 3.5 - 5.2 calcium, serum 10.3 mg/dL [facility] 8.6 - 10.2 High aspartate aminotransferase (SGOT), serum 21.0 1/L [facility] 0.0 - 40.0 alkaline phosphatase, serum 57.0 1/L [facility] 40.0 - 130.0 alanine aminotransferase (SGPT), serum 25.0 1/L [facility] 0.0 - 41.0 protein, total, serum 7.6 g/dL [facility] 6.6 - 8.7 bilirubin, serum, total 0.5 mg/dL [facility] 0.0 - 1.2 urea nitrogen, blood 27.0 mg/dL [facility] 8.0 - 23.0 High blood glucose, random 139.0 mg/dL [facility] 74.0 - 99.0 High red blood cell distribution width, size density 45.3 fL [facility] immature granulocytes, percentage of total cells, blood 1.1 % [facility] nucleated red blood cells as percent of blood leukocytes 0.0 % [facility] red blood cell (erythrocyte) count, per high power field 0.0 10*3/UL [facility] eosinophils as percent of blood leukocytes 2.7 % [facility] - neutrophils as percent of blood leukocytes 63.2 % [facility] Absolute Neutrophils 3.5 CELLS/UL [facility] 1.5 - 7.8 basophils as percent of blood leukocytes 1.1 % [facility] Absolute Basophils 0.1 CELLS/UL [facility] 0.0 - 0.2 monocytes as percent of blood leukocytes 8.1 % [facility] Absolute Monocytes 0.5 CELLS/UL [facility] 0.2 - [...] as % of total hemoglobin 8.5 % [facility] 4.0 - 6.0 High red blood cell distribution width, size density 45.1 fL [facility] - immature granulocytes, percentage of total cells, blood 0.8 % [facility] - nucleated red blood cells as percent of blood leukocytes 0.0 % [facility] - red blood cell (erythrocyte) count, per [...] Payer name Policy type / Coverage type [place] [employer] [id number] TREATMENT PLAN Date Name Performer Cardiology:BP today: 132/72 His updated medication list for this problem includes: Cozaar 50 Mg Tabs (Losartan potassium) .... One tablet daily Antonella Mckeon MD Cardiology:diminishe d L posterior tibial and diminished R posterior tibial. O rders: S NOMED-CT: [id number] Current Medications Documented (SCT-[id number]) E KG (CPT-59885) 9 9214 MOD Complex (CPT-88506) A rterial - SENSILASE (CPT-09485) in next several weeks Antonella Mckeon MD Cardiology: O rders: 9 9214 MOD Complex (CPT-99558) Antonella Mckeon MD Date Name PSA, TOTAL [...] Name Provider Procedure Notes S tatus SNOMED-CT: 06960722 Physical Exam, Performed: Pulse Exam of Foot Antonella Mckeon MD completed EKG Antonella khan MD completed SNOMED-CT: [id number] Current Medications Documented Antonella Mckeon MD completed Schedule Followup Antonella purdy MD per SK: p carter has PVD and DM, sees dr. Perry as outpatient at [place], please schedule fu with Dr. mckeon on 09/26/2015 abd arterial LE dopplers n- [facility] fu completed Stress EKG MEGAN PERRY MD completed Cardiolite, 2 units MEGAN PERRY MD completed SPECT Images Kassy Mcclendon MD compl eted
--- OUTSIDE RECORDS SUMMARY | 2024-08-05 04:46 | XMS_ITS | Encounter Summary ---
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 01/26/2024 02/07/2024 04/25/2024 3:[address] documented as of this encounter Care Teams Ambulatory Care Nurse Relationship Specialty Start Date End Date Anders Morataya MD PCP - General 01/03/18 Abilio Villanueva MD [address] [place] [address] Consulting Physician Radiation Oncology 04/02/20 Abilio Villanueva MD [address] [place] [address] Radiation Oncologist Radiation Oncology 06/17/20 documented as of this encounter
--- OUTSIDE RECORDS SUMMARY | 2024-08-05 04:46 | XMS_ITS | Encounter Summary ---
Author Organization [facility] Address [address] [place] [address] Care Team Providers Care Specialist Managers Name Role Phone Unavailable Primary Care Provider Unavailabl e Encounter Details Date Type Department Care Team (Late st Contact Info) Description 05/06/2021 Lab Requisition [facility] DermPath Lab [address] [place] [address] Chevy Brink MD [address] [place] [id number] Social History Tobacco Use Types Packs/Day Years Used Date Smoking Tobacco: Never Smokeless Tobacco: Never Alcohol Use Standard Drinks/Week Comments No 0 (1 standard drink = 0.6 oz pur e alcohol) Sex and Gender Information Value Date Recorded Sex Assigned at Not on file 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 Answer Date of Assessment Author No 02/11/2014 1:54 PM Cehly Vizcaino RN * Is person blind or [...] Comments DERMATOPATHOLOGY Routine 05/05/2021 12:0 0 AM OIL FIELD OPERATOR documented in this encounter Results * DERMATOPATHOLOGY (05/05/2021 12:00 AM OIL FIELD OPERATOR) Case Report Dermatopathology Report Case: [id number] Authorizing Provider: Chevy Brink MD Collected: 05/05/2021 12:00 AM Ordering Location: [facility] DermPath Lab Received: 05/06/2021 12:40 PM Pathologist: Javon Nelson MD Specimen: Skin, left preauricular cheek posterior to sideburn 2 4:26 PM [facility] DERMATOPATHOLOGY LABORATORY Final Diagnosis Specimen A. SKIN, left preauricular cheek posterior to sideburn: SQUAMOUS CELL CARCINOMA, WELL DIFFERENTIATED (C44.329) 2 4:26 PM [facility] DERMATOPATHOLOGY LABORATORY at [address] [facility] Clinical History R/O SCC 2 4:26 PM [facility] DERMATOPATHOLOGY LABORATORY Gross Description Specimen A: Received is one formalin filled container labeled with the patient's name and designated left preauricular cheek posterior to sideburn. The specimen consists of a shave biopsy measuring 68e2s3an. Jar 0. 2 4:26 PM [facility] DERMATOPATHOLOGY LABORATORY Microscopic Description Specimen A. SKIN, left preauricular cheek posterior to sideburn: Arising in the epidermis and extending into the dermis there are irregularly shaped aggregates of keratinocytes showing evidence of premature cornification. 2 4:26 PM [facility] DERMATOPATHOLOGY LABORATORY Disclaimer An external and internal positive and negative controls are appropriate for the histochemical, immunohistochemical and immunofluorescence stain(s) in this case (if any), except where stated explicitly. The performance characteristics of the stain(s) cited in this report were developed and its performance characteristic determined by the Dermatopathology Laboratory at [facility], directed by Dr. Geoffrey Nelson. These tests need not be, and therefore are not, approved by the [place] Food and Drug Administration. The tests are used for clinical purposes. Billing Codes Specimen Charges Stain Charges 85074 1 2 4:26 PM OIL FIELD OPERATOR DERMATOPATHOLOGY LABORATORY Embedded Images 2 4:26 PM OIL FIELD OPERATOR DERMATOPATHOLOGY LABORATORY Pathology/Cytolog y TISSUE SPECIMEN FROM SKIN / Unknown 05/05/2021 05/06/2021 12:40 PM OIL FIELD OPERATOR Chevy Brink MD LAB - PATHOLOGY/CYTOLOGY ORD ERABLES Final Result DERMATOPATHOLOGY LABORATORY [facility] - Department of Dermatology [facility] Medicine [address] [place] [address], [address] [phone] documented in this encounter Visit Diagnoses Not on filedocumented in this encounter
--- OUTSIDE RECORDS SUMMARY | 2024-08-05 04:46 | XMS_ITS ---
Author Organization [facility] Care Team Providers Care Budget Technician Name Role Phone Anders Morataya MD Primary Care Provider [phone] Abilio Villanueva MD Unavailable [phone] Abilio Villanueva MD Unavailable [phone] Active Problems Problem Noted Date Diagnosed Date [...] today Assessment & Plan (03/30/2024 3:20 PM WELCOME WAGON HOST/HOSTESS): Short term benefit from prior IASI. Discussed [...] visit. Assessment & Plan (03/30/2024 3:26 PM WELCOME WAGON HOST/HOSTESS): Reviewed MRI. Discussed consideration of LMBB/RFA. Knee is the priority at this time. 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 Assessment & Plan (01/12/2021 11:28 AM WELCOME WAGON HOST/HOSTESS): No signs or symptoms of other neurologic symptoms. No emotional lability incontinence or difficulty with balance. Scored 23/30 on mini-mental status exam. Plan at this point is to check laboratory studies MRI and begin donepezil Type 2 diabetes mellitus wit hout complication, without long-term current use of insulin 12/24/2019 Assessment & Plan (02/07/2024 11:21 AM WELCOME WAGON HOST/HOSTESS): A1c is 5.5. Doing quite well. Will decrease his metformin to daily Assessment & Plan (11/21/2023 3:52 PM CDT): A1c normal. Assessment & Plan (08/16/2023 4:09 PM CDT): A1c normal Assessment & Plan (03/31/2020 12:59 PM WELCOME WAGON HOST/HOSTESS): Doing well, will continue present rx. Assessment & Plan (12/24/2019 8:10 AM CDT): Doing well. A1c doing very well. Continue present medication Arthritis 06/21/2018 Dystrophia unguium 06/21/2018 Hypercholesterolemia 06/21/2018 Peripheral venous insufficiency 06/21/2018 Seasonal allergies 06/21/2018 Prostate cancer ([facility]) 01/23/2018 Cancer Staging:Clinical stage from 02/24/2015:Stage IIIC(cT1c, cN0, cM0, PSA: 2.1, Grade Group: 5) - Signed by Abilio Villanueva MD on 06/17/2020 Pathologic stage from 02/25/2015:Stage IIIB(pT3a, pN0, cM0, PSA: 0.7, Grade Group: 3) - Signed by Abilio Villanueva MD on 06/17/2020 Overview (11/21/2023): Stable. Assessment & Plan (02/07/2024 11:21 AM WELCOME WAGON HOST/HOSTESS): PSA recently checked Assessment & Plan (03/31/2020 12:59 PM WELCOME WAGON HOST/HOSTESS): To see radiation oncology Assessment & Plan (12/24/2019 8:11 AM CDT): Per Dr Perry Dyslipidemia 12/15/2015 Cellulitis of left lower limb 09/12/2015 Anemia 05/12/2015 Prostate carcinoma 04/14/2015 Finger tendinitis 06/12/2014 Essential hypertension 01/28/2014 Assessment & Plan (02/07/2024 11:21 AM WELCOME WAGON HOST/HOSTESS): BP at target Assessment & Plan (11/21/2023 [...]
--- OUTSIDE RECORDS SUMMARY | 2024-08-05 04:46 | XMS_ITS | Encounter Summary ---
Author Organization [facility] Address [address] [place] [address] Care Team Providers Care Cloth Cutter Name Role Phone Unavailable Primary Care Provider Unavailabl e Encounter Details Date Type Department Care Team (Late st Contact Info) Description 12/27/2022 Lab Requisition [facility] - DermPath Lab [address] [place] [address] Chevy Brink MD [address] [place] [address] Social History Tobacco Use Types Packs/Day Years Used Date Smoking Tobacco: Never Smokeless Tobacco: Never Alcohol Use Standard Drinks/Week Comments No 0 (1 standard drink = 0.6 oz pur e alcohol) Sex and Gender Information Value Date Recorded Sex Assigned at Not on file Legal Sex Male 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 Jar 0. 5:41 PM CDT DERMATOPATHOLOGY [...] characteristic determined by the Dermatopathology Laboratory at [facility], directed by Dr. Geoffrey Nelson. These tests need not be, and therefore are not, approved by the [place] Food and Drug Administration. The tests are used for clinical purposes. Billing Codes Specimen Charges Stain Charges 20895 1 3 5:41 PM CDT DERMATOPATHOLOGY LABORATORY Embedded Images 3 5:41 PM CDT DERMATOPATHOLOGY LABORATORY Pathology/Cytolo gy TISSUE SPECIMEN FROM SKIN / Unknown 12/22/2022 3:33 AM CDT 12/27/2022 9:32 AM CDT Chevy Brink MD LAB - PATHOLOGY/CYTOLOGY ORD ERABLES Edited Result - Final DERMATOPATHOLOGY LABORATORY [facility] - Department of Dermatology [facility] Medicine [address] [place] [address], [address] [phone] documented in this encounter Visit Diagnoses Not on filedocumented in this encounter
--- OUTSIDE RECORDS SUMMARY | 2024-08-05 04:46 | XMS_ITS | Referral Summary ---
Author Organization [facility] Care Team Providers Care Diamond Powder Mixer Name Role Phone Anders Morataya MD Primary Care Provider Abilio Villanueva MD Unavailable [phone] Abilio Villanueva MD Unavailable [phone] Encounters Date Type Department Care Team Description 07/19/2024 8:30 AM CDT Office Visit [facility] [address] [facility] [address] [place] [address] Anders Morataya MD Anorexia (Primary Dx) 07/18/2024 Telephone [facility] [address] [place] [address] Advanced Medicine [address] [place] [address] Kali Santos MD Post-Op Call 07/17/2024 9:32 AM CDT - 07/17/2024 11:59 PM CDT Hospital Encounter [facility] [address] [place] [address] Advanced Medicine [address] [place] [address] Kali Santos MD Primary osteoarthritis of right knee (Primary Dx); Lumbar spondylosis Discharge Disposition: Discharge to home or self care 07/13/2024 Telephone [facility] [address] [place] [address] Advanced Medicine [address] [place] [address] Kali Santos MD [facility] Preprocedure 07/10/2024 3:00 PM CDT Office Visit [facility] Advanced Medicine Radiation Oncology [address] [facility] [place] [address] Margareth oHwell NP Prostate CA (HCC) (Primary Dx) 06/25/2024 11:00 AM CDT Office Visit [facility] [address] 6th [place] [address] [place] [address] Eder Duvall MD Alzheimer's disease (HCC) (Primary Dx); Other chronic pain 06/13/2024 11:46 AM CDT - 06/13/2024 11:59 PM CDT Hospital Encounter [facility] Advanced Medicine [address] [place] [address] Advanced [facility] [address] [place] [address] Kali Santos MD Lumbar spondylosis (Primary Dx); Primary osteoarthritis of right knee Discharge Disposition: Discharge to home or self care 06/08/2024 Telephone [facility] Advanced Medicine [address] [facility] Advanced [facility] [address] [place] [address] Kali Santos MD PMC Preprocedure 06/07/2024 Results Follow-Up [facility] Critical access hospital1 [facility] [address] [place] [address] Shireen Deras NP Thyroid Function [place], Comprehensive metabolic panel, CBC with auto differential, Additional followed-up results: 2 06/07/2024 Orders Only [facility] Advanced [facility] Radiation Oncology [address] [place] [address] Margareth Howell NP Prostate CA (HCC) (Primary Dx) 06/07/2024 1:10 PM CDT Lab [facility] Advanced [facility] ([facility]) [address] [place] [phone] Type 2 diabetes mellitus without complication, without long-term current use of insulin (HCC); Essential hypertension; Prostate CA (HCC) 06/07/2024 10:15 AM CDT Office Visit [facility] [address] [place] [address] [address] [facility] [place] [address] Shireen Deras NP Type 2 diabetes mellitus without complication, without long-term current use of insulin (HCC) (Primary Dx); Essential hypertension; Memory loss; Prostate cancer (CMS/HCC) (HCC) 05/21/2024 Telephone [facility] Advanced Medicine [address] [place] [address] Advanced Medicine [address] [place] [address] Kali Santos MD 05/18/2024 Results Follow-Up [facility] Advanced [address] Advanced Medicine [address] [place] [address] Kali Santos MD XR Spine Lumbar Incl Bending Views 6 or More Views 05/18/2024 11:25 AM CDT - 05/18/2024 11:59 PM CDT Hospital Encounter [facility] ([facility]) [address] [place] [address] Lumbar spondylosis Discharge Disposition: Discharge to home or self care 05/18/2024 9:58 AM CDT - 05/18/2024 11:59 PM CDT Hospital Encounter [facility] Advanced Medicine [address] [place] [address] Advanced Medicine [address] [place] [address] Kali Santos MD Lumbar spondylosis (Primary Dx); Primary osteoarthritis of right knee Discharge Disposition: Discharge to home or self care 05/15/2024 Telephone [facility] Advanced Medicine [address] [place] [address] Advanced Medicine [address] [place] [address] Kali Santos MD from Last 3 Months [...] today Assessment & Plan (03/30/2024 3:20 PM LOGGING TRUCK DRIVER): Short term benefit from prior IASI. Discussed [...] visit. Assessment & Plan (03/30/2024 3:26 PM LOGGING TRUCK DRIVER): Reviewed MRI. Discussed consideration of LMBB/RFA. Knee is the priority at this time. Chronic midline low back pain without sciatica 1 04/09/2023 Assessment & Plan (02/07/2024 11:20 AM LOGGING TRUCK DRIVER): Has compression fracture on regular films will [...] PLAN: Continue donepezil/Aricept and Namenda/memantine Day program: [facility] Consultant Macy Kramer for resources [...] been recommended to have Reclast by bone Risktail. 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 Assessment & Plan (01/12/2021 11:28 AM LOGGING TRUCK DRIVER): No signs or symptoms of other neurologic symptoms. No emotional lability incontinence or difficulty with balance. Scored 23/30 on mini-mental status exam. Plan at this point is to check laboratory studies MRI and begin donepezil Type 2 diabetes mellitus wit hout complication, without long-term current use of insulin 12/24/2019 Assessment & Plan (02/07/2024 11:21 AM LOGGING TRUCK DRIVER): A1c is 5.5. Doing quite well. Will decrease his metformin to daily Assessment & Plan (11/21/2023 3:52 PM CDT): A1c normal. Assessment & Plan (08/16/2023 4:09 PM CDT): A1c normal Assessment & Plan (03/31/2020 12:59 PM LOGGING TRUCK DRIVER): Doing well, will continue present rx. Assessment & Plan (12/24/2019 8:10 AM CDT): Doing well. A1c doing very well. Continue present medication Arthritis 06/21/2018 Dystrophia unguium 06/21/2018 Hypercholesterolemia 06/21/2018 Peripheral venous insufficiency 06/21/2018 Seasonal allergies 06/21/2018 Prostate cancer ([facility]) 01/23/2018 Cancer Staging:Clinical stage from 02/24/2015:Stage IIIC(cT1c, cN0, cM0, PSA: 2.1, Grade Group: 5) - Signed by Abilio Villanueva MD on 06/17/2020 Pathologic stage from 02/25/2015:Stage IIIB(pT3a, pN0, cM0, PSA: 0.7, Grade Group: 3) - Signed by Abilio Villanueva MD on 06/17/2020 Overview (11/21/2023): Stable. Assessment & Plan (02/07/2024 11:21 AM LOGGING TRUCK DRIVER): PSA recently checked Assessment & Plan (03/31/2020 12:59 PM LOGGING TRUCK DRIVER): To see radiation oncology Assessment & Plan (12/24/2019 8:11 AM CDT): Per Dr Perry Dyslipidemia 12/15/2015 Cellulitis of left lower limb 09/12/2015 Anemia 05/12/2015 Prostate carcinoma 04/14/2015 Finger tendinitis 06/12/2014 Essential hypertension 01/28/2014 Assessment & Plan (02/07/2024 11:21 AM LOGGING TRUCK DRIVER): BP at target Assessment & Plan (11/21/2023 [...] on file Legal Sex Male 4:10 AM LOGGING TRUCK DRIVER Gender Identity Male 01/20/2021 7:01 PM LOGGING TRUCK DRIVER Sexual Orientation Not on file Last Filed [...] POCT LIPID PANEL Routine 03/02/2022 2:29 PM LOGGING TRUCK DRIVER Hyperlipidemia, unspecified hyperlipidemia type COLONOSCOPY REPORT 09/03/2016 CT ABDOMEN PELVIS W CONTRAST Routine 01/21/2015 11:30 AM LOGGING TRUCK DRIVER from Last 3 Months or Most Recently Relevant to Health Maintenance Results * Imaging Lumbar/Sacral Facet Medial Branch Block Bilateral (10676) (07/17/2024 10:50 AM CDT) Narrative [facility] - [...] 06/07/2024 12:05 PM CDT us Shireen Deras SEAMING INSPECTOR LAB BLOOD ORDERABLES Final Re sult [facility] [place] [address] * Differential, auto (06/07/2024 11:36 AM CDT) Neutrophil abs 4.57 1.50 - 6.50 K/cumm Imm gran abs 0.05 0.00 - 0.10 K/cumm [facility] Lymphocyte abs 1.40 0.80 - 3.30 K/cumm [facility] Monocyte abs 0.43 0.20 - 0.80 K/cumm [facility] Eosinophil abs 0.24 0.00 - 0.50 K/cumm [facility] Basophil abs 0.06 0.00 - 0.10 K/cumm [facility] Neutrophil pct 67.7 % [facility] Comment: Interpretive Data Percent cell count reference ranges are not reported, since discordance with absolute values may lead to misinterpretation of CBC data. Current Interpretive Data was last revised on 2017. Imm gran pct 0.7 % [facility] Comment: Interpretive Data Percent cell count reference ranges are not reported, since discordance with absolute values may lead to misinterpretation of CBC data. Current Interpretive Data was last revised on 2017. Lymphocyte pct 20.7 % [facility] Comment: Interpretive Data Percent cell count reference ranges are not reported, since discordance with absolute values may lead to misinterpretation of CBC data. Current Interpretive Data was last revised on 2017. Monocyte pct 6.4 % [facility] Comment: Interpretive Data Percent cell count reference ranges are not reported, since discordance with absolute values may lead to misinterpretation of CBC data. Current Interpretive Data was last revised on 2017. Eosinophil pct 3.6 % [facility] Comment: Interpretive Data Percent cell count reference ranges are not reported, since discordance with absolute values may lead to misinterpretation of CBC data. Current Interpretive Data was last revised on 2017. Basophil pct 0.9 % [facility] Comment: Interpretive Data Percent cell count reference ranges are not reported, since discordance with absolute values may lead to misinterpretation of CBC data. Current Interpretive Data was last revised on 2017. Blood 06/07/2024 11:3 6 AM CDT 06/07/2024 11:57 AM CDT Shireen Deras SEAMING INSPECTOR LAB BLOOD ORDERABLES Final Re sult Performing Organization Address [facility] Co de Phone Number [facility] Department [place] [address] * Thyroid Function [place] (06/07/2024 11:36 AM CDT) Pathologist [facility] TSH 0.58 0.30 - 4.20 mcIUnit/mL Blood 06/07/2024 11:3 6 AM CDT 06/07/2024 11:57 AM CDT Shireen Deras SEAMING INSPECTOR LAB BLOOD ORDERABLES Final Re sult Performing Organization Address [facility] Co de Phone Number [facility] Department [place] [address] * CBC with auto differential (06/07/2024 11:36 AM CDT) Pathologist [facility] WBC 6.75 3.80 - 9.90 K/cumm Hgb 13.7 13.0 - 17.5 g/dL [facility] Hct 39.9 38.9 - 50.3 % [facility] Plt 224 150 - 400 K/cumm [facility] MPV 10.7 9.1 - 12.3 fL [facility] RBC 4.74 4.30 - 5.80 M/cumm [facility] MCV 84.2 81.3 - 96.4 fL [facility] MCH 28.9 27.1 - 33.3 pg [facility] MCHC 34.3 32.3 - 35.7 g/dL [facility] RDW CV 14.3 11.1 - 14.9 % [facility] RDW SD 43.8 35.7 - 48.1 fL [facility] NRBC abs 0.00 0.00 - 0.01 K/cumm [facility] Blood 06/07/2024 11:3 6 AM CDT 06/07/2024 11:57 AM CDT us Shireen Deras SEAMING INSPECTOR LAB BLOOD ORDERABLES Final Re sult Performing Organization Address [facility] Co de Phone Number [facility] [place] [address] * PSA diagnostic (06/07/2024 11:36 AM CDT) [...] 06/07/2024 11:57 AM CDT us Margareth Howell SEAMING INSPECTOR LAB BLOOD ORDERABLES Final Result Performing Organization Address City/[facility]/ZIP Co de Phone Number [facility] [place] [address] * Comprehensive metabolic panel (06/07/2024 11:36 AM CDT) Sodium 144 135 - 145 mmol/L Potassium, pl 4.0 3.3 - 4.9 mmol/L [facility] Chloride 105 97 - 110 mmol/L [facility] CO2 29 22 - 32 mmol/L [facility] Anion gap 10 2 - 15 mmol/L [facility] BUN 16 6 - 25 mg/dL [facility] Creatinine 1.19 0.80 - 1.30 mg/dL [facility] Glucose 89 70 - 199 mg/dL [facility] Comment: Interpretive Data Fasting glucose >/= 126 [...] 2022. Calcium 9.9 8.5 - 10.3 mg/dL [facility] Bilirubin, total 0.7 0.1 - 1.2 mg/dL [facility] Protein, pl 7.3 6.5 - 8.5 g/dL [facility] Albumin 4.3 3.5 - 5.0 g/dL [facility] Alk phos 69 40 - 130 Units/L [facility] ALT 11 7 - 55 Units/L [facility] AST 18 10 - 50 Units/L [facility] Blood 06/07/2024 11:3 6 AM CDT 06/07/2024 11:57 AM CDT us Shireen Deras SEAMING INSPECTOR LAB BLOOD ORDERABLES Final Re sult [facility] Department [place] [address] * POCT hemoglobin A1c (06/07/2024 10:34 AM CDT) Hemoglobin A1C, POC 5.6 4.0 - 5.6 % Capillary blood 06/07/2024 1 0:34 AM CDT Shireen Meyer Braeden SEAMING INSPECTOR POINT OF CARE TEST ORDERABLES Final Result [...] Final Result * Imaging Genicular Nerve Block ([id number]) (05/18/2024 11:05 AM CDT) Narrative [facility] - 05/18/2024 11:05 AM CDT The images from this study are not interpreted by Radiology. Please refer to the physician's procedure / OR operative note. Kali Santos MD IMG PAIN MGMT PROCEDURE S Final Result [facility] * (ABNORMAL) POCT lipid panel (03/02/2022 2:29 PM LOGGING TRUCK DRIVER) Cholesterol, POC 194 mg/dL HDL, POC 30 mg/dL Triglycerides, POC 294 mg/dL LDL Cholesterol POC 105 mg/dL Chol/HDL Ratio, POC 6.5 Non-HDL Cholesterol, POC 164 mg/dL Cholesterol Total, POC 194 mg/dL Capillary blood 03/02/2022 2 :29 PM LOGGING TRUCK DRIVER Anders Morataya MD POINT OF CARE TEST ORDERABLES Final Result * COLONOSCOPY REPORT (09/03/2016) Anatomical Region Laterality Modality Other us Provider Scanning GI PROCEDURE ORDERABLES Final Result * CT Abdomen Pelvis W Contrast (01/21/2015 11:30 AM LOGGING TRUCK DRIVER) Anatomical Region Laterality Modality Body N/A Computed Tomogra phy 01/21/2015 11:3 0 AM LOGGING TRUCK DRIVER Narrative 01/21/2015 1:10 PM LOGGING TRUCK DRIVER DATE OF EXAM: Jan 21 2015 11:30AM Acc#: [id number] ECT 0074 - CT Abd/Pel W DIAGNOSIS: [...] WITHOUT EVIDENCE OF PELVIC OR ABDOMINAL LYMPHADENOPATHY. FOLDER HAND: LB3 TRANSCRIBE DATE/TIME: Jan 21 2015 12:55P RADIOLOGIST: DAKOTA WARE M.D. READ ON: Jan 21 2015 12:41P ORDERING DR: RENETTA PERRY M.D. THIS DOCUMENT HAS BEEN ELECTRONICALLY SIGNED BY: DAKOTA WARE M.D. ON: Jan 21 2015 1:10P Attending: RENETTA PERRY Requesting: RENETTA PERRY Requesting Attending Attending ID: [id number] Requesting ID: [id number] Report To 1 ID: Report To 1 Name: , Report To 1 FAX: -- Report To 2 ID: Report To 2 Name: , Report To 2 FAX: -- NextGen Order #: Procedure Note Provider, MD Neli - 06/17/2016 DATE OF EXAM: Jan 21 2015 11:30AM Acc#: [id number] ECT 0074 - CT Abd/Pel W DIAGNOSIS: [...] WITHOUT EVIDENCE OF PELVIC OR ABDOMINAL LYMPHADENOPATHY. FOLDER HAND: LB3 TRANSCRIBE DATE/TIME: Jan 21 2015 12:55P RADIOLOGIST: DAKOTA WARE M.D. READ ON: Jan 21 2015 12:41P ORDERING DR: RENETTA PERRY M.D. THIS DOCUMENT HAS BEEN ELECTRONICALLY SIGNED BY: DAKOTA WARE M.D. ON: Jan 21 2015 1:10P Attending: RENETTA PERRY Requesting: RENETTA PERRY Requesting Attending Attending ID: [id number] Requesting ID: [id number] Report To 1 ID: Report To 1 Name: , Report To 1 FAX: -- Report To 2 ID: Report To 2 Name: , Report To 2 FAX: -- NextGen Order #: Historical Provider MD RUIZ CT PROCEDURES Final R esult from Last 3 Months or Most Recently Relevant to Health Maintenance Insurance MEDICARE [facility] MEDICARE SUPPLEMENT INSURANCE MEDICARE [facility] MEDICARE SUPPLEMENT INSURANCE MEDICARE [facility] MEDICARE SUPPLEMENT INSURANCE MEDICARE [facility] MEDICARE SUPPLEMENT INSURANCE Care Teams Diamond Powder Mixer Relationship Specialty Start Date End Date Anders Morataya MD PCP - General 01/03/18 Abilio Villanueva MD [address] [place] [address] Consulting Physician Radiation Oncology 04/02/20 Abilio Villanueva MD [address] [place] [address] Radiation Oncologist Radiation Oncology 06/17/20
[2024-08-05 04:48] LABS: Basophils Absolute Auto 0.1 K/mm3 (0.0-0.1); Basophils Percent Auto 1.3 % (0.2-1.2); Eosinophils Absolute Auto 0.3 K/mm3 (0-0.3); Eosinophils Percent Auto 4.8 % (0-4.4); Hematocrit 37.3 % (42.0-52.0); Hemoglobin 12.4 g/dL (14.0-18.0); Immature Granulocyte Absolute 0.04 K/mm3 (0.00-0.031); Immature Granulocyte Percent A 0.6 % (0-0.5); Lymphocytes Absolute Auto 1.63 K/mm3 (0.9-3.2); Lymphocytes Percent Auto 26.2 % (18.3-44.2); Mean Corpuscular HGB Conc 33.2 g/dl (32-36); Mean Corpuscular Hemoglobin 29.4 pg (26-34); Mean Corpuscular Volume 88.4 fl (80-100); Mean Platelet Volume 10.7 fl (7.4-10.4); Monocytes Absolute Auto 0.5 K/mm3 (0.1-0.6); Monocytes Percent Auto 7.7 % (2.6-8.5); Neutrophils Absolute Auto 3.7 K/mm3 (1.3-6.7); Neutrophils Percent Auto 59.4 % (45.5-73.1); Platelet Count Result 213 k/mm3 (150-375); Red Blood Count 4.22 M/mm3 (4.6-6.20); Red Cell Distribution Width 15.4 % (11.5-14.5); White Blood Count 6.2 K/mm3 (4.5-10.0)
[2024-08-05 05:04] LABS: Alanine Aminotransferase 15 U/L (6-50); Albumin Level 4.1 g/dL (3.5-5.1); Alkaline Phosphatase 41 U/L (38-126); Anion Gap 10 mmol/L (4-12); Aspartate Amino Transferase 30 U/L (17-59); Bilirubin,Total 1.1 mg/dL (0.2-1.3); Blood Urea Nitrogen 20 mg/dL (9-20); Calcium 9.8 mg/dL (8.4-10.2); Carbon Dioxide 24 mmol/L (22-30); Chloride 106 mmol/L (98-107); Estimated CRCL calculation 49 ml/min; Estimated Glomerular Filt Rate > 60; Glucose 83 mg/dL (65-110); Lipase 57 U/L (23-300); Potassium 3.7 mmol/L (3.4-5.0); Sodium 140 mmol/L (137-145); Total Protein 7.3 g/dL (6.3-8.2)
[2024-08-05 05:15] LABS: Troponin I < 0.012 ng/mL (0.000-0.034)
[2024-08-05 05:26] LABS: Prothrombin Time 13.5 Seconds (11.1-14.7)
[2024-08-05 05:27] LABS: Partial Thromboplastin Time 31.4 Seconds (22.3-36.8)
[2024-08-05 06:22] VITALS: BP 168/99; PULSE 62; RESP 24; O2SAT 96
[2024-08-05 07:01] VITALS: BP 168/99; PULSE 62; RESP 24; O2SAT 96
== END 2024-08-05 07:02 | disposition home or self-care (01) ==
PROVIDERS: Emergency Provider Student in an Organized Health Care Education/Training Program; PCP Internal Medicine
DX: R07.89 Other chest pain (principal); E11.9 Type 2 diabetes mellitus without complications; Z79.84 Long term (current) use of oral hypoglycemic drugs; Z87.442 Personal history of urinary calculi
CPT/HCPCS: 36415; 71045; 80053; 83690; 84484; 85025; 85610; 85730; 93005; 99284

== ENCOUNTER 2024-09-22 18:13 | Inpatient (IN) | payer MEDICARE, SELFPAY ==
[2024-09-22] VITALS (13 sets, daily range): BP systolic 103–152; BP diastolic 45–79; PULSE 63–68; RESP 11–22; TEMP 36.4–36.7; O2SAT 99–100; BMI 22.8
--- NOTE | ~2024-09-22 | CT_ITS ---
EXAMINATION: CTA brain carotid DATE: 09/22/2024 20:16 INDICATION: left sided weakness TECHNIQUE: Computed tomographic angiography (CTA) of the head was performed without and with 100 mL O mnipaque-350 intravenous contrast. CTA of the neck was performed with intravenous contrast. Automated exposure control and iterative reconstruction technique were employed. The dose-length product was 1 670.51 mGy-cm. Maximum intensity projection and volume rendered 3D-reconstructions were created by blanche perea technologist on a separate workstation. COMPARISON: 07/05/2022. FINDINGS: CT BRAIN: No acute large vessel infarct, intracranial hemorrhage, mass, or hydrocephalus. Moderate atrophy and mild chronic white matter change. Atherosclerotic intracranial calcification. CTA HEAD: No large vessel occlusion, aneurysm, high flow vascular malformation, nidus or extravasation. Symmetr ic parenchymal enhancement. Patent cerebral veins. CTA NECK: Aortic arch and proximal great vessels: Normal arch anatomy. Atherosclerotic calcifications at the vi sualized aortic arch and proximal great vessels. Right common carotid, carotid bifurcation, and internal carotid artery: Calcified atherosclerotic jerica que at the carotid bifurcation.There is 0% stenosis of the proximal right internal carotid artery rel ative to normal distal artery lumen diameter (NASCET criteria). Left common carotid, carotid bifurcation, and internal carotid artery: Calcified atherosclerotic plaq ue at the carotid bifurcation.There is 0% stenosis of the proximal left internal carotid artery relat edith to normal distal artery lumen diameter (NASCET criteria). Vertebral arteries: No significant plaque or stenosis. Vertebral arteries co-dominant. Other findings: Degenerative changes in the cervical spine. Minimal peripheral reticular opacities in the lungs may represent interstitial disease. Periodontal disease. Uncomplicated appearing dental im plants. Multifocal thyroid hypodensities and calcifications, less than 1.5 cm, requiring no additiona l evaluation. IMPRESSION: No acute intracranial process. No large vessel intracranial occlusion, high-grade intracranial stenosis, or aneurysm. No carotid or vertebral artery occlusion, dissection, or significant stenosis. Reviewed, dictated and finalized at location K. IMPRESSION: No acute intracranial process. No large vessel intracranial occlusion, high-grade intracranial stenosis, or an eurysm. No carotid or vertebral artery occlusion, dissection, or significant stenosis.
--- NOTE | ~2024-09-22 | MR_ITS ---
EXAMINATION: MR cervical spine wo con DATE: 09/24/2024 09:41 INDICATION: Cervical radiculopathy TECHNIQUE: Magnetic resonance imaging (MRI) of the cervical spine was performed without intravenous c ontrast. Sequences included sagittal T2-weighted FSE, sagittal T2-weighted FS FSE, sagittal T1-weight ed FSE, axial MERGE and axial T2-weighted FSE. COMPARISON: None FINDINGS: Bone alignment is normal. Vertebral body heights are normal. Bone marrow signal intensity is normal . Intervertebral disc heights are normal. Cord signal intensity is normal. Cervical soft tissues are unremarkable. The following disc levels are specifically discussed: C2-C3: Disc is mildly bulging. There is mild bilateral uncovertebral joint osteoarthritis. There is m ild right and severe left facet joint osteoarthritis. There is mild left neural foraminal stenosis. T here is mild central canal stenosis. C3-C4: The disc does not extend beyond the endplate margin. There is mild right and moderate to sever e left uncovertebral joint osteoarthritis. There is mild right and severe left facet joint osteoarthr itis. There is mild right and moderate left neural foraminal stenosis. There is minimal central canal stenosis. C4-C5: Disc is bulging with annular fissure. There is moderate right and mild left uncovertebral join t osteoarthritis. There is severe bilateral facet joint osteoarthritis. There is mild left and modera te right neural foraminal stenosis. There is mild central canal stenosis. C5-C6: Annular fissure and right paracentral disc protrusion with disc material indenting the right v entral surface of the cord. There is mild bilateral uncovertebral joint osteoarthritis. There is mild right and moderate left facet joint osteoarthritis. There is mild left and minimal right neural fora maria del rosario stenosis. There is mild central canal stenosis. C6-C7: In the fissure and right paracentral disc protrusion which indents the ventral surface of the cord. There is mild bilateral uncovertebral joint osteoarthritis. There is mild bilateral facet joint osteoarthritis. There is mild right neural foraminal stenosis. There is mild central canal stenosis. C7-T1: The disc does not extend beyond the endplate margin. There is no uncovertebral joint osteoarth ritis. There is mild bilateral facet joint osteoarthritis. There is no neural foraminal stenosis. The re is no central canal stenosis. IMPRESSION: 1. Mild cervical spondylosis. Reviewed, dictated and finalized at location A.
--- NOTE | ~2024-09-22 | MR_ITS ---
EXAMINATION: MR brain/brain stem wo con DATE: 09/23/2024 12:24 INDICATION: Left-sided weakness TECHNIQUE: Magnetic resonance imaging (MRI) of the brain and brainstem was performed without intraven ous contrast. Sequences included sagittal and axial T1-weighted SE, axial diffusion-weighted FS SE, a xial 3D SWAN, axial T2-weighted FLAIR, and axial T2-weighted FSE. Apparent diffusion coefficient (ADC ) maps were created. COMPARISON: Head CT and CT angiogram dated 09/22/[address] dated 07/20 FINDINGS: There are no areas of restricted diffusion to suggest acute infarction. No intracranial hemorrhage or abnormal intracranial mass lesion. Mild scattered nonspecific increased T2-weighted signal intensity in the cerebral white matter, predominantly involving the deep and periventricular white matter whic h is within normal limits for age and likely sequela of chronic small vessel ischemic disease. There are no intraparenchymal signal abnormalities seen on the other pulse sequences. Chronic enlargement o f the lateral and third ventricles which is progressed slightly since 2 years prior and which is disp roportionate to the diffuse mild enlargement of the sulci which could relate to moderate central pred ominant diffuse volume loss although could also be seen with normal pressure hydrocephalus. There are no abnormal extra-axial fluid collections. Flow voids are seen in the cerebral arteries on the T2-we ighted sequences consistent with their expected patency. Mild mucosal thickening the bilateral ethmoi d sinuses. Visualized orbits and soft tissues are unremarkable. IMPRESSION: 1. Mild periventricular predominant nonspecific white matter T2 hyperintensity which within normal li mits for age and likely sequela of chronic small vessel ischemic disease. No acute intracranial proce ss. 2. Nodular enlargement of the ventricles which is progressed slightly since 07/05/2022 which remains di sproportionate to the mild enlargement of the sulci which could relate to moderate central predominan t diffuse age-related volume loss although differential includes normal pressure hydrocephalus (NPH: clinical triad ataxia/gait disturbance, dementia, urinary incontinence). Reviewed, dictated and finalized at location A. IMPRESSION: 1. Mild periventricular predominant nonspecific white matter T2 hyperintensity which within normal limits for age and likely sequela of chronic small vessel i schemic disease. No acute intracranial process. 2. Nodular enlargement of the ventricles which is progressed slightly since 07/05 which remains disproportionate to the mild enlargement of the sulci which could relate to moderate central predominant diffuse age-related volume loss a lthough differential includes normal pressure hydrocephalus (NPH: clinical tria d ataxia/gait disturbance, dementia, urinary incontinence).
--- NOTE | 2024-09-22 19:17 | PC.NURSE ---
Addendum entered by Lauren Ruffin RN 09/22/24 19:18: Report received from LIZANDRO Fields. Assumed care of patient at this time. Original Note: Report received from LIZANDRO Bruner. Assumed care of patient at this time.
--- NOTE | 2024-09-22 19:28 | ECG_ITS ---
Test Date: 2024-09-22 19:45:47 Measurements Intervals [place] Rate: 64 P: 42 NC: 167 QRS: 15 QRSD: 120 T: 8 QT: 418 QTc: 432 Interpretive Statements SINUS RHYTHM NONSPECIFIC ST & T-WAVE ABNORMALITY Compared to ECG 08/05/2024 04:16:54 T-wave abnormality now present Electronically Signed On 09-23-2024 14:20:07 CDT by Raj Posadas M.D.
[2024-09-22 19:31] LABS: INR 1.0; Prothrombin Time 13.4 Seconds (11.1-14.7)
[2024-09-22 19:33] LABS: Partial Thromboplastin Time 28.8 Seconds (22.3-36.8)
[2024-09-22 19:35] LABS: Hematocrit 35.6 % (42.0-52.0); Hemoglobin 11.7 g/dL (14.0-18.0); Immature Granulocyte Percent A 0.4 % (0-0.5); Lymphocytes Absolute Auto 1.21 K/mm3 (0.9-3.2); Mean Corpuscular HGB Conc 32.9 g/dl (32-36); Mean Corpuscular Hemoglobin 28.8 pg (26-34); Mean Corpuscular Volume 87.7 fl (80-100); Nucleated Red Blood Cells Absolute Auto 0.000 K/mm3 (0.0-0.012); Nucleated Red Blood Cells Perc 0.0 % (0.0-0.2); Platelet Count Result 216 k/mm3 (150-375); Red Blood Count 4.06 M/mm3 (4.6-6.20); White Blood Count 8.2 K/mm3 (4.5-10.0)
[2024-09-22] MEDS: LACTATED RINGERS 1,000 ML 999 ML IV CONT (19:37)
--- OUTSIDE RECORDS SUMMARY | 2024-09-22 19:41 | XMS_ITS | Clinical Summary ---
Author Organization [facility] [email or web address] Address [address] [place] [address] Care Team Providers Care Topper Press Operator Automatic Name Role Phone Unavailable Primary Care Provider Unavailabl e Source Comments [facility],non-owned Affiliates and Associated Physician Practices is amultiple site organization consisting of ambulatory clinics and hospital sitesin [place], [place], [place] and [place]. This disclosure is being madepursuant to the Care Everywhere program and may not contain all information available regarding this patient. Last updated 17.[facility] [employer] Allergies Active Allergy Reactions Criticality Noted Date [...] on file Legal Sex Male 2:18 PM RURAL SOCIOLOGIST Gender Identity Not on file Sexual Orientation Not on file Last Filed Vital Signs Vital Sign Reading Time Taken Comments Blood Pressure 127/77 06/03/2014 11:04 AM CDT Pulse 96 06/03/2014 11:04 AM CDT Temperature 36.2 C (97.2 F) 02/11/2014 1:50 PM RURAL SOCIOLOGIST Respiratory Rate 20 02/11/2014 2:10 PM RURAL SOCIOLOGIST Oxygen Saturation 99% 02/11/2014 2:10 PM RURAL SOCIOLOGIST Inhaled Oxygen Concentration - - Weight 117.9 [...] season) 2023 DEPRESSION SCREENING 02/29/2024 INFLUENZA VACCINE (#1) 2024 HEPATITIS B VACCINE Aged Out No [...] complete this topic Insurance ANTH MEDICARE MEDICARE [facility] [employer] GARRY SHANKAR [id number] MEDICARE
--- OUTSIDE RECORDS SUMMARY | 2024-09-22 19:41 | XMS_ITS ---
Author Organization [facility] Care Team Providers Care Lens Blocker Name Role Phone Anders Morataya MD Primary Care Provider [phone] Abilio Villanueva MD Unavailable [phone] Abilio Villanueva MD Unavailable [phone] Active Problems Problem Noted Date Diagnosed Date Anorexia 07/19/2024 Primary osteoarthritis of right knee 03/30/2024 Overview (08/09/2024): 05/18/24 - R GNB R knee Zilretta 04/16/24. No benefit. Prior IASI limited benefit - R 08/19/21 IMPRESSION: Severe lateral compartment predominant tricompartmental right knee osteoarthritis. Assessment & Plan (08/10/2024 12:33 PM CDT): Has failed multiple injections, but GNB with benefit. WIll proceed with RFA now that pain has returned. I did discuss his difficulty describing his pain does make it somewhat harder to determine potential benefits of procedures as it is harder to understand his pain. Understanding this, his and he decided to proceed. He is oriented x3 on exam. Assessment & Plan (07/17/2024 12:44 PM CDT): [...] today Assessment & Plan (03/30/2024 3:20 PM EMAIL MARKETING EXECUTIVE): Short term benefit from prior IASI. Discussed viscosupplementation, Zilretta and genicular NB/RFA. He is hesitant about RFA to start with. Lumbar spondylosis 03/30/2024 Overview (08/09/2024): Clay L4-5-S1 MBB 07/17/24 - no relief - MRI 02/16/24 FINDINGS: Normal alignment of the [...] to moderate at L3-L4. Assessment & Plan (08/10/2024 12:34 PM CDT): No benefit from LMBB. Sprint PNS is a consideration. Assessment & Plan (07/17/2024 10:26 AM CDT): [...] visit. Assessment & Plan (03/30/2024 3:26 PM EMAIL MARKETING EXECUTIVE): Reviewed MRI. Discussed consideration of LMBB/RFA. Knee is the priority at this time. Chronic midline low back pain without sciatica 1 04/09/2023 Assessment & Plan (02/07/2024 11:20 AM EMAIL MARKETING EXECUTIVE): Has compression fracture on regular films will [...] PLAN: Continue donepezil/Aricept and Namenda/memantine Day program: [facility] Consultant Macy Kramer for resources [...] 04/17/2021 Memory loss 01/12/2021 Assessment & Plan (08/15/2024 8:42 AM CDT): Worsening, continue medication Assessment & Plan (02/07/2024 11:21 AM EMAIL MARKETING EXECUTIVE): Continue both donepezil and memantine Assessment & Plan (11/21/2023 3:52 PM CDT): Unchanged. Assessment & Plan (01/12/2021 11:28 AM EMAIL MARKETING EXECUTIVE): No signs or symptoms of other neurologic symptoms. No emotional lability incontinence or difficulty with balance. Scored 23/30 on mini-mental status exam. Plan at this point is to check laboratory studies MRI and begin donepezil Type 2 diabetes mellitus wit hout complication, without long-term current use of insulin 12/24/2019 Assessment & Plan (08/15/2024 8:41 AM CDT): Off meds Assessment & Plan (02/07/2024 11:21 AM EMAIL MARKETING EXECUTIVE): A1c is 5.5. Doing quite well. Will decrease his metformin to daily Assessment & Plan (11/21/2023 3:52 PM CDT): A1c normal. Assessment & Plan (08/16/2023 4:09 PM CDT): A1c normal Assessment & Plan (03/31/2020 12:59 PM EMAIL MARKETING EXECUTIVE): Doing well, will continue present rx. Assessment & Plan (12/24/2019 8:10 AM CDT): Doing well. A1c doing very well. Continue present medication Arthritis 06/21/2018 Dystrophia unguium 06/21/2018 Hypercholesterolemia 06/21/2018 Peripheral venous insufficiency 06/21/2018 Seasonal allergies 06/21/2018 Prostate cancer ([facility]) 01/23/2018 Cancer Staging:Clinical stage from 02/24/2015:Stage IIIC(cT1c, cN0, cM0, PSA: 2.1, Grade Group: 5) - Signed by Abilio Villanueva MD on 06/17/2020 Pathologic stage from 02/25/2015:Stage IIIB(pT3a, pN0, cM0, PSA: 0.7, Grade Group: 3) - Signed by Abilio Villanueva MD on 06/17/2020 Overview (11/21/2023): Stable. Assessment & Plan (02/07/2024 11:21 AM EMAIL MARKETING EXECUTIVE): PSA recently checked Assessment & Plan (03/31/2020 12:59 PM EMAIL MARKETING EXECUTIVE): To see radiation oncology Assessment & Plan (12/24/2019 8:11 AM CDT): Per Dr Perry Dyslipidemia 12/15/2015 Cellulitis of left lower limb 09/12/2015 Anemia 05/12/2015 Prostate carcinoma 04/14/2015 Finger tendinitis 06/12/2014 Essential hypertension 01/28/2014 Assessment & Plan (08/15/2024 8:41 AM CDT): Bp at target Assessment & Plan (02/07/2024 11:21 AM EMAIL MARKETING EXECUTIVE): BP at target Assessment & Plan (11/21/2023 [...] month) (LUPRON) syringe kit Drug Shortage Margareth Howell, JEANETTE Eligard Injection - 45 mg every 24 [...]
--- OUTSIDE RECORDS SUMMARY | 2024-09-22 19:41 | XMS_ITS ---
Author Organization 1 OF Dustin phan DPM [facility] Address [address] [place] [id number] Care Team Providers Care Covered Button Maker Name Role Phone Hood JAIMES, Anders Primary Care Provider UnavailKeely Alvarez [phone] REASON FOR VISIT f/u toe wound Encounters Encounter Location Date Provider Diagnosis 1 OF Dustin Ordonez [address] [phone] 08/01/2024 Keely Abdul Plan Of Treatment No Information Progress Notes * Conner VAUGHNDOB:[birth year] (78 yo M)Acc No.[id number]:08/01/2024 Progress Notes Patient: Conner DAS Provider: Alvarez Abdul DPM :1945 A ge:78 Y S ex:Male Date:08/01/2024 Address:[address] [place], [place] [phone] Pcp:Anders Morataya MD Subjective: * Chief Complaints: * 1 . F/u toe wound. * Medical History: Objective: * Vitals: Assessment: Plan: * Treatment: * Images: * Electronic signature of Kristy Abdul DPM on 09/22/2024 at 07:41 PM CDT Sign off status: Pending * Provider: Alvarez Abdul DPM Date: 0 08/01/2024 Generated for Janiei ng/Faxing/eTransmitting on: 0 09/22/2024 07:41 PM CDT
--- OUTSIDE RECORDS SUMMARY | 2024-09-22 19:41 | XMS_ITS | Encounter Summary ---
Author Organization [facility] Health Address [address] [facility] [place] [address] Care Team Providers Care Supervisor Cigar Processing Name Role Phone Unavailable Primary Care Provider Unavailabl e Encounter Details Date Type Department Care Team (Late st Contact Info) Description 05/06/[address] 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 Gender Identity Not on file Sexual [...] Comments DERMATOPATHOLOGY Routine 05/05/2021 12:0 0 AM CORRUGATED BOX MACHINE OPERATOR documented in this encounter Results * DERMATOPATHOLOGY (05/05/2021 12:00 AM CORRUGATED BOX MACHINE OPERATOR) Case Report Dermatopathology Report Case: [id number] Authorizing Provider: Chevy Brink MD Collected: 05/05/2021 12:00 AM Ordering Location: [facility] DermPath Lab Received: 05/06/2021 12:40 PM Pathologist: Javon Nelson MD Specimen: Skin, left preauricular cheek posterior to sideburn 2 4:26 PM [facility] DERMATOPATHOLOGY LABORATORY Final Diagnosis Specimen A. SKIN, left preauricular cheek posterior to sideburn: SQUAMOUS CELL CARCINOMA, WELL DIFFERENTIATED (C44.329) 2 4:26 PM [facility] DERMATOPATHOLOGY LABORATORY at [address] [facility] Clinical History R/O SCC 2 4:26 PM [facility] DERMATOPATHOLOGY LABORATORY Gross Description Specimen A: Received is one formalin filled container labeled with the patient's name and designated left preauricular cheek posterior to sideburn. The specimen consists of a shave biopsy measuring [id number]. Jar 0. 2 4:26 PM [facility] DERMATOPATHOLOGY LABORATORY Microscopic Description Specimen A. SKIN, left preauricular cheek posterior to sideburn: Arising in the epidermis and extending into the dermis there are irregularly shaped aggregates of keratinocytes showing evidence of premature cornification. 2 4:26 PM [facility] DERMATOPATHOLOGY LABORATORY Disclaimer An external and internal positive and negative controls are appropriate for the histochemical, immunohistochemical and immunofluorescence stain(s) in this case (if any), except where stated explicitly. The performance characteristics of the stain(s) cited in this report were developed and its performance characteristic determined by the Dermatopathology Laboratory at [facility], directed by Dr. Geoffrey Nelson. These tests need not be, and therefore are not, approved by the [place] Food and Drug Administration. The tests are used for clinical purposes. Billing Codes Specimen Charges Stain Charges 47046 1 2 4:26 PM CORRUGATED BOX MACHINE OPERATOR DERMATOPATHOLOGY LABORATORY Embedded Images 2 4:26 PM CORRUGATED BOX MACHINE OPERATOR DERMATOPATHOLOGY LABORATORY Pathology/Cytolog y TISSUE SPECIMEN FROM SKIN / Unknown 05/05/2021 05/06/2021 12:40 PM CORRUGATED BOX MACHINE OPERATOR Chevy Brink MD LAB - PATHOLOGY/CYTOLOGY ORD ERABLES Final Result DERMATOPATHOLOGY LABORATORY [facility] - Department of Dermatology [facility] Medicine [address] [place] [address], [address] [phone] documented in this encounter Visit Diagnoses Not on filedocumented in this encounter
--- OUTSIDE RECORDS SUMMARY | 2024-09-22 19:41 | XMS_ITS | Encounter Summary ---
Author Organization [facility] Health Address [address] [facility] [place] [address] Care Team Providers Care Operations Agent Name Role Phone Unavailable Primary Care Provider Unavailabl e Encounter Details Date Type Department Care Team (Late st Contact Info) Description 12/27/2022 Lab Requisition [facility] - DermPath Lab [address] [place] [address] Chevy Brink MD [address] [place] [address] Social History Tobacco Use Types Packs/Day Years Used Date Smoking Tobacco: Never Smokeless Tobacco: Never Alcohol Use Standard Drinks/Week Comments No 0 (1 standard drink = 0.6 oz pur e alcohol) Sex and Gender Information Value Date Recorded Sex Assigned at Not on file 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 Jar 0. 5:41 PM CDT DERMATOPATHOLOGY [...] characteristic determined by the Dermatopathology Laboratory at [facility], directed by Dr. Geoffrey Nelson. These tests need not be, and therefore are not, approved by the [place] Food and Drug Administration. The tests are used for clinical purposes. Billing Codes Specimen Charges Stain Charges 15239 1 3 5:41 PM CDT DERMATOPATHOLOGY LABORATORY Embedded Images 3 5:41 PM CDT DERMATOPATHOLOGY LABORATORY Pathology/Cytolo gy TISSUE SPECIMEN FROM SKIN / Unknown 12/22/2022 3:33 AM CDT 12/27/2022 9:32 AM CDT Chevy Brink MD LAB - PATHOLOGY/CYTOLOGY ORD ERABLES Edited Result - Final DERMATOPATHOLOGY LABORATORY [facility] - Department of Dermatology [facility] Medicine [address] [place] [address], [address] [phone] documented in this encounter Visit Diagnoses Not on filedocumented in this encounter
--- OUTSIDE RECORDS SUMMARY | 2024-09-22 19:42 | XMS_ITS | Referral Summary ---
Author Organization [facility] HealthCare Care Team Providers Care Marketing Manager Name Role Phone Anders Morataya MD Primary Care Provider [phone] Abilio Villanueva MD Unavailable [phone] Abilio Villanueva MD Unavailable [phone] Encounters Date Type Department Care Team Description 09/14/2024 Telephone [facility] [address] [place] [address] Preethi Gabriel Leonardo Patient issue/concern 09/11/2024 Telephone [facility] [address] [place] [address] [address] [place] [address] Anders Morataya MD 09/07/2024 Telephone [facility] [address] [place] [address] [address] [place] [address] Anders Morataya MD 09/07/2024 Orders Only [facility] [address] [place] [address] [address] [place] [id number] Anders Morataya MD 09/06/2024 Orders Only [facility] [address] [place] [address] [address] [place] [address] Anders Morataya MD 09/05/2024 Orders Only [facility] [address] [place] [address] [address] [place] [address] Anders Morataya MD 08/24/2024 Orders Only [facility] [address] [place] [address] [address] [place] [address] Anders Morataya MD 08/23/2024 Orders Only [facility] [address] [place] [address] [address] [place] [address] Anders Morataya MD 08/15/2024 8:00 AM CDT Office Visit [facility] [address] [place] [address] [address] [place] [address] Anders Morataya MD Essential hypertension (Primary Dx); Type 2 diabetes mellitus without complication, without long-term current use of insulin (HCC); Memory loss 08/10/2024 9:52 AM CDT - 08/10/2024 11:59 PM CDT Hospital Encounter [facility] [address] [place] [address] [facility] [address] [place] [address] Kali Santos MD Primary osteoarthritis of right knee (Primary Dx); Lumbar spondylosis Discharge Disposition: Discharge to home or self care 08/05/2024 Orders Only [facility] [address] [place] [address] [address] [place] [address] Anders Morataya MD 07/19/2024 8:30 AM CDT Office Visit [facility] [address] [place] [address] [address] [place] [address] Anders Morataya MD Anorexia (Primary Dx) 07/18/2024 Telephone [facility] [address] [place] [address] [facility] [address] [place] [address] Kali Santos MD Post-Op Call 07/17/2024 9:32 AM CDT - 07/17/2024 11:59 PM CDT Hospital Encounter [facility] [address] [facility] [address] [place] [address] Kali Santos MD Primary osteoarthritis of right knee (Primary Dx); Lumbar spondylosis Discharge Disposition: Discharge to home or self care 07/13/2024 Telephone [facility] [address] [place] [address] Kali Santos MD [facility] Preprocedure 07/10/2024 3:00 PM CDT Office Visit [facility] [address] [place] [address] Margareth Howell NP Prostate CA (HCC) (Primary Dx) 06/25/2024 11:00 AM CDT Office Visit [facility] [address] 6th [place] [address] [place] [address] Eder Duvall MD Alzheimer's disease (HCC) (Primary Dx); Other chronic pain from Last 3 Months Allergies Active Allergy [...] DAILY 100 each 11 07/20/19 23 Active fenofibrate nanocrystallized (TRICOR) 145 mg tablet [...] SLEEP 90 tablet 2 05/31/19 25 Active losartan (COZAAR) 100 mg tablet TAKE 1 TABLET BY MOUTH EVERY DAY 90 tablet 3 08/21/19 25 Active donepeziL (ARICEPT) 10 mg tablet Take 1 tablet (10 mg total) by mouth nightly 30 tablet 11 09/20/19 25 Active donepeziL (ARICEPT) 10 mg tablet Take 1 tablet (10 mg total) by mouth nightly 30 tablet 11 09/28/19 24 025 Discontin ued(Reord er) Active Problems Problem Noted Date Diagnosed Date [...] today Assessment & Plan (03/30/2024 3:20 PM CONCEPT ARTIST): Short term benefit from prior IASI. Discussed [...] visit. Assessment & Plan (03/30/2024 3:26 PM CONCEPT ARTIST): Reviewed MRI. Discussed consideration of LMBB/RFA. Knee is the priority at this time. 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 Consultant Macy Kramer for resources and [...] medication Assessment & Plan (02/07/2024 11:21 AM CONCEPT ARTIST): Continue both donepezil and memantine Assessment & Plan (11/21/2023 3:52 PM CDT): Unchanged. Assessment & Plan (01/12/2021 11:28 AM CONCEPT ARTIST): No signs or symptoms of other neurologic [...] meds Assessment & Plan (02/07/2024 11:21 AM CONCEPT ARTIST): A1c is 5.5. Doing quite well. Will decrease his metformin to daily Assessment & Plan (11/21/2023 3:52 PM CDT): A1c normal. Assessment & Plan (08/16/2023 4:09 PM CDT): A1c normal Assessment & Plan (03/31/2020 12:59 PM CONCEPT ARTIST): Doing well, will continue present rx. Assessment & Plan (12/24/2019 8:10 AM CDT): Doing well. A1c doing very well. Continue present medication Arthritis 06/21/2018 Dystrophia unguium 06/21/2018 Hypercholesterolemia 06/21/2018 Peripheral venous insufficiency 06/21/2018 Seasonal allergies 06/21/2018 Prostate cancer (CMS/HCC) 01/23/2018 Cancer Staging:Clinical stage from 02/24/2015:Stage IIIC(cT1c, cN0, cM0, PSA: 2.1, Grade Group: 5) - Signed by Abilio Villanueva MD on 06/17/2020 Pathologic stage from 02/25/2015:Stage IIIB(pT3a, pN0, cM0, PSA: 0.7, Grade Group: 3) - Signed by Abilio Villanueva MD on 06/17/2020 Overview (11/21/2023): Stable. Assessment & Plan (02/07/2024 11:21 AM CONCEPT ARTIST): PSA recently checked Assessment & Plan (03/31/2020 12:59 PM CONCEPT ARTIST): To see radiation oncology Assessment & Plan (12/24/2019 8:11 AM CDT): Per Dr Perry Dyslipidemia 12/15/2015 Cellulitis of left lower limb 09/12/2015 Anemia 05/12/2015 Prostate carcinoma 04/14/2015 Finger tendinitis 06/12/2014 Essential hypertension 01/28/2014 Assessment & Plan (08/15/2024 8:41 AM CDT): Bp at target Assessment & Plan (02/07/2024 11:21 AM CONCEPT ARTIST): BP at target Assessment & Plan (11/21/2023 [...] PM CDT): Stable at this time Kulwinder toe 06/21/2018 12/05/2023 Immunizations Immunization Administration Dates Next [...] you have a drink containing alcohol? Never 08/10/2024 Q2: How many drinks containi ng alcohol do you have on a typical day when you are drinking? Patient does not drink Q3: How often do you have si x or more drinks on one occasion? Never 08/10/2024 Hunger Vital Sign Answer Date Recorded Within the past 12 months, y ou worried that your food would run out before you got the money to buy more. Never true 08/11/19 25 Within the past 12 months, t he food you bought just didn't last and you didn't have money to get more. Never true 08/10/2024 Sex and Gender Information Value Date Recorded Sex Assigned at Not on file Legal Sex Male 4:10 AM CONCEPT ARTIST Gender Identity Male 01/20/2021 7:01 PM CONCEPT ARTIST Sexual Orientation Not on file Last Filed Vital Signs Vital Sign Reading Time Taken Comments Blood Pressure 155/71 08/15/2024 8:02 AM CDT Pulse 59 08/15/2024 8:02 AM CDT Temperature 36.4 C (97.5 F) 08/10/2024 10:01 AM CDT Respiratory Rate 16 08/10/2024 10:01 AM CDT Oxygen Saturation 100% 08/10/2024 10:01 AM CDT Inhaled Oxygen Concentration - - Weight 85.7 kg (189 lb) 08/15/2024 8:02 AM CDT Height 175.3 cm (5' 9) 08/15/2024 8:02 AM CDT Body Mass Index 27.91 08/15/2024 8:02 AM CDT Plan of Treatment Not on file Goals Goal Patient Goal Type Associated Problems Recent Progress Patient-Stated? Author CCM Chronic Pain Care Plan Chronic Care Management No change(08/10 9:57 AM CDT) No Lena Paige RN Note: Problem: Chronic Pain Goals: 1. Minimize further functional decline 2. Maximize quality of life 3. Control pain Strategies: - Activity/exercise program recommendation - Conservative stepwise pain medicine strategy with multi-disciplinary approach - Recommend healthy lifestyle strategies and compensatory methods as needed Procedures Procedure Name Priority Date/Time Associated Diagnosis Comments SCAN - LABS 09/17/2024 5:21 AM CDT SCAN - LABS 09/07/2024 6:39 AM CDT SCAN - LABS 09/06/2024 6:11 AM CDT SCAN - LABS 09/06/2024 2:40 AM CDT SCAN - LABS 09/06/2024 2:40 AM CDT SCAN - LABS 09/06/2024 2:40 AM CDT SCAN - LABS 09/05/2024 8:07 PM CDT SCAN - LABS 09/05/2024 1:52 PM CDT SCAN - LABS 09/05/2024 12:53 PM CDT SCAN - LABS 09/05/2024 8:20 AM CDT SCAN - RADIOLOGY/IMAGING 09/05/2024 7:05 AM CDT SCAN - LABS 09/05/2024 6:58 AM CDT SCAN - LABS 09/05/2024 6:58 AM CDT SCAN - LABS 09/05/2024 6:46 AM CDT SCAN - LABS 09/05/2024 6:39 AM CDT SCAN - LABS 08/24/2024 5:54 AM CDT SCAN - LABS 08/23/2024 11:33 PM CDT SCAN - RADIOLOGY/IMAGING 08/23/2024 9:35 PM CDT SCAN - RADIOLOGY/IMAGING 08/23/2024 9:35 PM CDT SCAN - RADIOLOGY/IMAGING 08/23/2024 7:10 PM CDT SCAN - LABS 08/23/2024 7:03 PM CDT SCAN - LABS 08/23/2024 7:03 PM CDT SCAN - LABS 08/23/2024 7:03 PM CDT SCAN - LABS 08/23/2024 7:03 PM CDT SCAN - LABS 08/23/2024 6:56 PM CDT SCAN - LABS 08/23/2024 6:50 PM CDT SCAN - LABS 08/23/2024 6:50 PM CDT SCAN - LABS 08/23/2024 6:43 PM CDT SCAN - LABS 08/05/2024 8:48 AM CDT SCAN - RADIOLOGY/IMAGING 08/05/2024 6:59 AM CDT PAIN MGMT IMAGING LUMBAR/SACRAL FACET/ MEDIAL BRANCH BLOCK BILATERAL Schedule Routine, Read Routine (OP Routine) 07/17/2024 10:50 AM CDT Lumbar spondylosis EGFR Routine 06/07/2024 11:36 AM CDT Type 2 diabetes mellitus without complication, without long-term current use of insulin (HCC) Essential hypertension POCT HEMOGLOBIN A1C Routine 06/07/2024 10:34 AM CDT Type 2 diabetes mellitus without complication, without long-term current use of insulin (HCC) POCT LIPID PANEL Routine 03/02/2022 2:29 PM CONCEPT ARTIST Hyperlipidemia, unspecified hyperlipidemia type COLONOSCOPY REPORT 09/03/2016 CT ABDOMEN PELVIS W CONTRAST Routine 01/21/2015 11:30 AM CONCEPT ARTIST from Last 3 Months or Most Recently Relevant to Health Maintenance Results * SCAN - LABS (09/17/2024 5:21 AM CDT) Anders Morataya MD Final Result * SCAN - LABS (09/07/2024 6:39 AM CDT) Result Moisés Morataya MD Final Result * SCAN - LABS (09/06/2024 6:11 AM CDT) Result Moisés Morataya MD Final Result * SCAN - LABS (09/06/2024 2:40 AM CDT) Result Moisés Morataya MD Final Result * SCAN - LABS (09/06/2024 2:40 AM CDT) Result Moisés Morataya MD Final Result * SCAN - LABS (09/06/2024 2:40 AM CDT) Result Moisés Morataya MD Final Result * SCAN - LABS (09/05/2024 8:07 PM CDT) Result Moisés Morataya MD Final Result * SCAN - LABS (09/05/2024 1:52 PM CDT) Result Moisés Morataya MD Final Result * SCAN - LABS (09/05/2024 12:53 PM CDT) Result Moisés Morataya MD Final Result * SCAN - LABS (09/05/2024 8:20 AM CDT) Result Moisés Morataya MD Final Result * SCAN - RADIOLOGY/IMAGING (09/05/2024 7:05 AM CDT) Anatomical Region Laterality Modality Other Result Moisés Morataya MD Final Result * SCAN - LABS (09/05/2024 6:58 AM CDT) Result Moisés Morataya MD Final Result * SCAN - LABS (09/05/2024 6:58 AM CDT) Result Moisés Morataya MD Final Result * SCAN - LABS (09/05/2024 6:46 AM CDT) Result Moisés Morataya MD Final Result * SCAN - LABS (09/05/2024 6:39 AM CDT) Result Moisés Morataya MD Final Result * SCAN - LABS (08/24/2024 5:54 AM CDT) Result Moisés Morataya MD Final Result * SCAN - LABS (08/23/2024 11:33 PM CDT) Result Moisés Morataya MD Final Result * SCAN - RADIOLOGY/IMAGING (08/23/2024 9:35 PM CDT) Anatomical Region Laterality Modality Other Result Moisés Morataya MD Final Result * SCAN - RADIOLOGY/IMAGING (08/23/2024 9:35 PM CDT) Anatomical Region Laterality Modality Other Result Moisés Morataya MD Final Result * SCAN - RADIOLOGY/IMAGING (08/23/2024 7:10 PM CDT) Anatomical Region Laterality Modality Other Result Moisés Morataya MD Final Result * SCAN - LABS (08/23/2024 7:03 PM CDT) Result Moisés Morataya MD Final Result * SCAN - LABS (08/23/2024 7:03 PM CDT) Result Moisés Morataya MD Final Result * SCAN - LABS (08/23/2024 7:03 PM CDT) us Anders Morataya MD Final Result * SCAN - LABS (08/23/2024 7:03 PM CDT) us Anders Morataya MD Final Result * SCAN - LABS (08/23/2024 6:56 PM CDT) us Anders Morataya MD Final Result * SCAN - LABS (08/23/2024 6:50 PM CDT) Result Moisés Morataya MD Final Result * SCAN - LABS (08/23/2024 6:50 PM CDT) Result Moisés Morataya MD Final Result * SCAN - LABS (08/23/2024 6:43 PM CDT) Result Moisés Morataya MD Final Result * SCAN - LABS (08/05/2024 8:48 AM CDT) Result Moisés Morataya MD Final Result * SCAN - RADIOLOGY/IMAGING (08/05/2024 6:59 AM CDT) Anatomical Region Laterality Modality Other Result [facility] us Anders Morataya MD Final Result * Imaging Lumbar/Sacral Facet Medial Branch Block Bilateral (23011) (07/17/2024 10:50 AM CDT) Narrative RAD_PACS_[facility] - 07/17/2024 10:50 AM CDT The images from this study are not interpreted by Radiology. Please refer to the physician's procedure / OR operative note. us Travis Chin MD IMG PAIN MGMT PROCEDURES Final R esult RAD_PACS_[facility] * eGFR (06/07/2024 11:36 AM CDT) eGFR [...] 6 AM CDT 06/07/2024 12:05 PM CDT Shireen Deras NP LAB BLOOD ORDERABLES Final Re sult [facility] Department [place] [address] * POCT hemoglobin A1c (06/07/2024 10:34 AM CDT) Hemoglobin A1C, POC 5.6 4.0 - 5.6 % Capillary blood 06/07/2024 1 0:34 AM CDT Shireen Deras NP POINT OF CARE TEST ORDERABLES Final Result * (ABNORMAL) POCT lipid panel (03/02/2022 2:29 PM CONCEPT ARTIST) Cholesterol, POC 194 mg/dL HDL, POC 30 mg/dL Triglycerides, POC 294 mg/dL LDL Cholesterol POC 105 mg/dL Chol/HDL Ratio, POC 6.5 Non-HDL Cholesterol, POC 164 mg/dL Cholesterol Total, POC 194 mg/dL Capillary blood 03/02/2022 2 :29 PM CONCEPT ARTIST Anders Morataya MD POINT OF CARE TEST ORDERABLES Final Result * COLONOSCOPY REPORT (09/03/2016) Anatomical Region Laterality Modality Other Provider Scanning GI PROCEDURE ORDERABLES Final Result * CT Abdomen Pelvis W Contrast (01/21/2015 11:30 AM CONCEPT ARTIST) Anatomical Region Laterality Modality Body N/A Computed Tomogra phy 01/21/2015 11:3 0 AM CONCEPT ARTIST Narrative 01/21/2015 1:10 PM CONCEPT ARTIST DATE OF EXAM: Jan 21 2015 11:30AM Acc#: [id number] ECT 0074 - CT Abd/Pel W DIAGNOSIS: [...] WITHOUT EVIDENCE OF PELVIC OR ABDOMINAL LYMPHADENOPATHY. 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 READ ON: Jan 21 2015 12:41P ORDERING DR: RENETTA PERRY M.D. THIS DOCUMENT HAS BEEN ELECTRONICALLY SIGNED BY: DAKOTA WARE M.D. ON: Jan 21 2015 1:10P Attending: RENETTA PERRY Requesting: RENETTA PERRY Requesting Attending Attending ID: [id number] Requesting ID: [id number] Report To 1 ID: Report To 1 Name: , Report To 1 FAX: -- Report To 2 ID: Report To 2 Name: , Report To 2 FAX: -- NextGen Order #: Procedure Note Provider, MD Neli - 06/17/2016 DATE OF EXAM: Jan 21 2015 11:30AM Acc#: [id number] ECT 0074 - CT Abd/Pel W DIAGNOSIS: [...] WITHOUT EVIDENCE OF PELVIC OR ABDOMINAL LYMPHADENOPATHY. 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 READ ON: Jan 21 2015 12:41P ORDERING DR: RENETTA PERRY M.D. THIS DOCUMENT HAS BEEN ELECTRONICALLY SIGNED BY: DAKOTA WARE M.D. ON: Jan 21 2015 1:10P Attending: RENETTA PERRY Requesting: RENETTA PERRY Requesting Attending Attending ID: [id number] Requesting ID: [id number] Report To 1 ID: Report To 1 Name: , Report To 1 FAX: -- Report To 2 ID: Report To 2 Name: , Report To 2 FAX: -- NextGen Order #: Historical Provider MD RUIZ CT PROCEDURES Final R esult from Last 3 Months or Most Recently Relevant to Health Maintenance Insurance MEDICARE [facility] MEDICARE SUPPLEMENT INSURANCE MEDICARE [facility] MEDICARE SUPPLEMENT INSURANCE MEDICARE [facility] MEDICARE SUPPLEMENT INSURANCE MEDICARE [facility] MEDICARE SUPPLEMENT INSURANCE Care Teams Marketing Manager Relationship Specialty Start Date End Date Anders Morataya MD PCP - General 01/03/18 Abilio Villanueva MD [address] [facility] [address] [place] [address] Consulting Physician Radiation Oncology 04/02/20 Abilio Villanueva MD [address] [place] [address] Radiation Oncologist Radiation Oncology 06/17/20
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
--- OUTSIDE RECORDS SUMMARY | 2024-09-22 19:42 | XMS_ITS | Encounter Summary ---
Author Organization [facility] [employer] [facility] Address [address] [place] [address] Phone Care Team Providers Care Gericare Aide Name Role Phone Anders Morataya MD Primary Care Provider [phone] Abilio Villanueva MD Unavailable [phone] Abilio Villanueva MD Unavailable [phone] Encounter Details Date Type Department Care Team (Late st Contact Info) Description 11/08/2022 Orders Only [facility] [phone] Scanning, Provider Social History Tobacco Use Types [...] on file Legal Sex Male 4:10 AM STEAK TENDERIZER MACHINE Gender Identity Male 01/20/2021 7:01 PM STEAK TENDERIZER MACHINE Sexual Orientation Not on file documented as [...] COVID: Suspected 01/16/2024 01/16/2024 01/16/2024 11:59 AM STEAK TENDERIZER MACHINE COVID19 01/16/2024 01/16/2024 01/26/2024 3:05 AM STEAK TENDERIZER MACHINE COVID: Recovered Comment:Added based on recent COVID infection. 01/26/2024 02/07/2024 04/25/2024 3:[address] documented as of this encounter Care Teams Gericare Aide Relationship Specialty Start Date End Date Anders Morataya MD PCP - General 01/03/18 Abilio Villnaueva MD [address] [place] [address] Consulting Physician Radiation Oncology 04/02/20 Abilio Villanueva MD [address] [place] [address] Radiation Oncologist Radiation Oncology 06/17/20 documented as of this encounter
--- OUTSIDE RECORDS SUMMARY | 2024-09-22 19:42 | XMS_ITS | Patient Health Record ---
Author Organization 1 OF Dustin phan [facility] Address [address] [address] [place] [address] Care Team Providers Care Sheet Metal Worker Apprentice Name Role Phone Anders Morataya MD Primary Care Provider Unavailab bennett Franko Keely Unavailable [phone] Allergies Allergen (clinical drug ingredient) Drug/Non Drug [...] Duration) Notes Start Date End Date Status Vitamin D Active Fenofibrate 145 MG TAKE 1 TABLET BY GRAYSON TH EVERY DAY Oral; Duration: 90 Active OneTouch Ultra - USE TO TEST ONCE GERBER LY In Vitro; Duration: 90 Active Donepezil HCl 10 MG Oral; Duration: 90 Active Losartan Potassium 50 MG Oral; Duration: 90 Active metFORMIN HCl 1000 MG Oral; Duration: 90 Not-Taking traZODone HCl Active Mirtazapine Not-Taki ng Memantine HCl Active Vitamin B12 Active Social History Tobacco Use: Social History Observation Description Date Details (start date - stop date) Never Smoker NA - NA Tobacco Use/Smoking Question Answer Notes Are you a nonsmoker Problems Problem Type SNOMED Code ICD Code Onset Dates Problem Status W/U Status Risk Notes Problem Neurologic disorder associated with type II diabetes mellitus (185113025) Type 2 diabetes mellitus with other diabetic neurological complication (E11.49) Active confirmed Problem Ulcer of right foot (disorder) (368885666) Ulcer of right foot, limited to breakdown of skin (L97.511) Active confirmed Problem Acquired hammer toe of right foot (13862015396472 05) Hammertoe of right foot (M20.41) Active confirmed Problem Ulcer of toe of right foot (disorder) (88389347401153 101) Skin ulcer of toe of right foot, limited to breakdown of skin (L97.511) Active confirmed Problem Ulcer of toe of left foot (disorder) (88928855905048 102) Skin ulcer of toe of left foot, limited to breakdown of skin (L97.521) Active confirmed Problem Healed diabetic foot ulcer (Z86.31) Active confirmed Vital Signs Height 70 in 08/07/2024 Weight 207 lbs 08/07/2024 BMI 29.7 kg/m2 08/07/2024 Encounters Encounter Location Date Provider Diagnosis 1 OF Dustin Pri[facility] [address] [address] 09/29/2023 Keely Abdul Type 2 diabetes osman itus with other diabetic neurological complication E11.49 ; Skin ulcer of toe of right foot, limited to breakdown of skin L97.511 and Hammertoe of right foot M20.41 1 OF Dustin Prieto [facility] [address] [address] 11/28/2023 Keely Abdul Type 2 diabetes osman itus with other diabetic neurological complication E11.49 ; Hammertoe of right foot M20.41 ; Onychogryphosis L60.2 and Callus of foot L84 1 OF Dustin Prieto [facility] [address] [place] [address] 02/06/2024 Keely Abdul Type 2 diabetes osman itus with other diabetic neurological complication E11.49 ; Hammertoe of right foot M20.41 ; Onychogryphosis L60.2 and Callus of foot L84 1 OF Dustin Prieto [place] [address] [place] [address] 04/26/2024 Keely Abdul Type 2 diabetes osman itus with other diabetic neurological complication E11.49 ; Hammertoe of right foot M20.41 ; Onychogryphosis L60.2 ; Callus of foot L84 and Xerosis of skin L85.3 1 OF Dustin [employer] [address] [place] [address] 07/05/2024 Keely Rileya Type 2 diabetes osman itus with other diabetic neurological complication E11.49 ; Hammertoe of right foot M20.41 ; Onychogryphosis L60.2 ; Callus of foot L84 and Open wound of toe, initial encounter S91.109A 1 [facility] [address] [place] [address] 07/26/2024 Keely Abdul Type 2 diabetes osman itus with other diabetic neurological complication E11.49 and Skin ulcer of toe of left foot, limited to breakdown of skin L97.521 3 COL Nancy [facility] [address] [facility] [address] [place] [address] 08/07/2024 Keely Rileya Type 2 diabetes osman itus with other diabetic neurological complication E11.49 and Healed diabetic foot ulcer Z86.31 Assessments Encounter Date Diagnosis (ICD Code) Assessment Notes Treatment Notes Treatment Clinical Notes Section Notes 09/29/2023 Type 2 diabetes mellitus with other [...] Hammertoe of right foot (ICD-10 - M20.41) 07/26/2024 Type 2 diabetes mellitus with other diabetic neurological complication (ICD-10 - E11.49) 07/26/2024 Skin ulcer of toe of left foot, limited to breakdown of skin (ICD-10 - L97.521) A wound debridement was performed. Dressing was applied. His was advised to do dressing changes with collagen powder and a Band-Aid. He was given this today. She was advised to have him avoid pressure to the top of the toe as much as possible. She was educated on signs of infection and should call with any issues. 08/07/2024 Type 2 diabetes mellitus with other diabetic neurological complication (ICD-10 - E11.49) 08/07/2024 Healed diabetic foot ulcer (ICD-10 - Z86.31) Evaluation today included a review of medical history, review of systems, discussion of exam findings, and review of diagnoses and treatment options. His was advised that the wound bed is healed. She no longer needs to apply a dressing. She was advised to monitor for any signs of reopening and can call with any issues prior to his next visit. 09/29/2023 Skin ulcer of toe of right [...] visit and should call with any issues. 07/05/2024 Onychogryphosis (ICD-10 - L60.2) Considering the [...] regular and professional palliative foot care. 09/29/2023 Hammertoe of right foot (ICD-10 - [...] 02/06/2024 Callus of foot (ICD-10 - L84) 07/05/2024 Other 08/07/2024 Other Plan Of Treatment No Information Insurance Providers Payer Name Payer Address Payer Phone Subscriber Number Group Number Insured Name Patient Relationship to Insured Coverage Start Date Coverage End Date Medicare [address] [facility] [place] [id number] Conner Vilchis Self - patient is the insured [employer] Supplemental Claims [address] [place]ARR[place] [id number] Conner Vilchis Self - patient is the insured Medical (General) History Medical History History ICD Code Arthritis, Prostate Cancer, Diabetes, HB P, Neuropathy, Alzheimers Surgical History Surgery Date(Month/Year)
--- OUTSIDE RECORDS SUMMARY | 2024-09-22 19:42 | XMS_ITS | Continuity of Care Document ---
Author Organization [facility] Address [address] [place] [address] Phone Care Team Providers Care Insurance Executive Name Role Phone Yifan JAIMES, FACDustin, Yonny Unavailable Unavailab le Procedures Procedure Date INITIAL HOSPITAL CARE SUBSEQUENT HOSPITAL CARE SUBSEQUENT HOSPITAL CARE INITIAL HOSPITAL CARE Advance Directives Directive Yes / No Effective Date File Name No Information Encounters Encounter Description Practice Location Reason(s) For Visit Diagnoses Date Provider Providers Copied on Encounter INITIAL HOSPITAL CARE [facility], [address] [place] [address], [id number] , tel: [phone] [facility] Inpt Chest pain, unspecifiedEssential (primary) hypertensionShortnes s of breath 5 Yifan [address]as[address] [place] [address], [id number], [place]. tel:[phone] Referring Provider: Hugo Fierro, [address] [place] [address], [address] . tel:[phone] SUBSEQUENT HOSPITAL CARE [facility], [address] [place] [address], [id number] , tel: [phone] [facility] Inpt Chest pain, unspecifiedEssential (primary) hypertensionShortnes s of breath 5 Yifanlisa Blancas. [address] [place] [address], [id number], [place]. tel:[phone] Referring Provider: Felipa [address] , [place], [address] . tel:[phone] SUBSEQUENT HOSPITAL CARE [facility], [address] [place] [address], [id number] , tel: [phone] [facility] Inpt Chest pain, unspecifiedEssential (primary) hypertensionShortnes s of breath 5 Kalvaitis Saulius. [address] , [place], [place], [id number], [place]. tel:[phone] INITIAL HOSPITAL CARE [facility], [address] [place] [address], [id number] , tel: [phone] [facility] Inpt Chest pain, unspecifiedAlzheimer 's disease, unspecifiedChronic kidney disease, stage 1Hypertensive urgencyOverweight 5 Ramadaemilie Barber. [facility] [address] [place], [place], [id number], . tel:[phone] Family History Family Member Type Diagnosis Age At Onset No Information Payers Payer name Insurance type Covered libertarian ID Authoriza tion(s) [place] CI [id number] [facility] CI [id number] Social History Type Description Quantity Date Captured Comments Sex Male Smoking Status No Information Chief Complaint And Reason For Visit No Information Reason For Referral Reason For Referral No Information Plan Of Treatment Date Type Action Status Appointment Conner Adams BOOKED History Of Present Illness Encounter Date Complaint History Of Prese nt Illness No Information Functional Status Date Functional Assessmen t No Information Instructions Date Instruction Additional Infor mation No Information Assessments Type Assessment Date No Information Patient Care Teams Name Effective Dates (start - stop) Status Members No Information
--- OUTSIDE RECORDS SUMMARY | 2024-09-22 19:42 | XMS_ITS | Continuity of Care Document ---
Author Organization [facility] Address [address] [place] [address] [place] [address] Phone Care Team Providers Care Library Serials Assistant Name Role Phone Unavailable Unavailable Unavailable Advance Directives Directive Yes / No Effective Date File Name No Information Encounters Encounter Description Practice Location Reason(s) For Visit Diagnoses Date Provider Providers Copied on Encounter [facility], [address], [place], [place], [id number], [place] tel:[phone] [facility] No Information Jul- 8-200 0 No Information Family History Family Member Type Diagnosis Age At Onset No Information Payers Payer name Insurance type Covered democrat ID Authoriza tion(s) General Palestinian Commercial CI [id number] Social History Type Description Quantity Date Captured [...]
--- OUTSIDE RECORDS SUMMARY | 2024-09-22 19:42 | XMS_ITS | Encounter Summary ---
Author Organization [facility] Address [address] [place] [address] Care Team Providers Care Policyholder Information Clerk Name Role Phone Anders Morataya MD Primary Care Provider Abilio Villanueva MD Unavailable [phone] Abilio Villanueva MD Unavailable [phone] Encounter Details Date Type Department Care Team (Late st Contact Info) Description 03/24/2020 Telephone [facility] [address] [place] [id number] Ayanna Ross, RT Social History Tobacco [...] on file Legal Sex Male 4:10 AM MEDICAL SERVICE REPRESENTATIVE Gender Identity Male 01/20/2021 7:01 PM MEDICAL SERVICE REPRESENTATIVE Sexual Orientation Not on file documented as [...] COVID: Suspected 01/16/2024 01/16/2024 01/16/2024 11:59 AM MEDICAL SERVICE REPRESENTATIVE COVID19 01/16/2024 01/16/2024 01/26/2024 3:05 AM MEDICAL SERVICE REPRESENTATIVE COVID: Recovered Comment:Added based on recent COVID infection. 01/26/2024 02/07/2024 04/25/2024 3:[address] documented as of this encounter Care Teams Policyholder Information Clerk Relationship Specialty Start Date End Date Anders Morataya MD PCP - General 01/03/18 Abilio Villanueva MD [address] [place] [address] Consulting Physician Radiation Oncology 04/02/20 Abilio Villanueva MD [address] [place] [address] Radiation Oncologist Radiation Oncology 06/17/20 documented as of this encounter
--- OUTSIDE RECORDS SUMMARY | 2024-09-22 19:42 | XMS_ITS ---
Author Organization [facility] Address [address] [place] [id number] Care Team Providers Care Acid Cleaner Name Role Phone Hood JAIMES, Anders Primary Care Provider UnavailKeely Alvarez [phone] REASON FOR VISIT DFC (Diabetic foot care) Encounters Encounter Location Date Provider Diagnosis [facility] [address] [place] [phone] 09/13/2024 Keely Abdul Plan Of Treatment No Information Progress Notes * Conner VAUGHNDOB:[birth year] (78 yo M)Acc No.[id number]:09/13/2024 Progress Note Patient: Conner DAS Provider: Alvarez Abdul DPM :1945 A ge:78 Y S ex:Male Date:09/13/2024 Address:[address] [place], [place] [phone] Pcp:Anders Morataya MD Subjective: * Chief Complaints: * 1 . DFC (Diabetic foot care). * Medical History: Objective: * Vitals: Assessment: Plan: * Treatment: * Images: * Electronic signature of Kristy Abdul DPM on 09/22/2024 at 07:41 PM CDT Sign off status: Pending * Provider: Alvarez Abdul DPM Date: 0 09/13/2024 Generated for Yohana watt/Moo/eTransmitting on: 0 09/22/2024 07:41 PM CDT
[2024-09-22 19:44] LABS: Alanine Aminotransferase 32 U/L (6-50); Albumin Level 4.0 g/dL (3.5-5.1); Alkaline Phosphatase 47 U/L (38-126); Anion Gap 11 mmol/L (4-12); Aspartate Amino Transferase 102 U/L (17-59); Bilirubin,Total 1.2 mg/dL (0.2-1.3); Blood Urea Nitrogen 44 mg/dL (9-20); Calcium 10.4 mg/dL (8.4-10.2); Carbon Dioxide 28 mmol/L (22-30); Chloride 102 mmol/L (98-107); Estimated CRCL calculation 39 ml/min; Estimated Glomerular Filt Rate 48; Glucose 96 mg/dL (65-110); Potassium 3.7 mmol/L (3.4-5.0); Sodium 141 mmol/L (137-145); Total Protein 7.3 g/dL (6.3-8.2)
--- NOTE | 2024-09-22 20:52 | ED.NEUROSD ---
HPI - Neuro Symptoms/Deficit General Chief Complaint: Neuro Symptoms/Deficit Stated Complaint: L sided weakness, LKW unknown - this AM? Time Seen by Provider: 09/22/24 19:01 History of Present Illness HPI Narrative: Patient with history of Alzheimer's was found to be quite sleepy and tired yesterday when his was visiting and also seemed to hallucinate several people in the room, his brother visited this morning and he seemed to be in better spirits and was able to recognize his and brother, however he his head slumped over and his family noticed he may be a little bit weak on his left side. Has never had a stroke before. He tells me that he feels like his left arm is heavy. Related Data Home Medications ?Medication ?Instructions ?Recorded ?Confirmed ?Last Taken ?Type donepezil 10 mg tablet 10 mg PO HS 04/03/22 09/22/24 Unknown History fenofibrate nanocrystallized 145 145 mg PO DAILY 04/03/22 09/22/24 Unknown History mg tablet losartan 50 mg tablet 25 mg PO DAILY 04/03/22 09/22/24 Unknown History cholecalciferol (vitamin D3) 25 25 mcg PO DAILY 12/23/22 09/22/24 Unknown History mcg (1,000 unit) capsule (Vitamin D3) cyanocobalamin (vitamin B-12) 2,500 mcg sublingual DAILY 12/23/22 09/22/24 Unknown History 2,500 mcg sublingual tablet (Vitamin B-12) furosemide 20 mg tablet (Lasix) 20 mg PO DAILY 09/22/24 09/22/24 Unknown History isosorbide mononitrate 30 mg 30 mg PO DAILY 09/22/24 09/22/24 Unknown History tablet,extended release 24 hr memantine 10 mg tablet 10 mg PO BID 09/22/24 09/22/24 Unknown History metoprolol succinate 25 mg 25 mg PO DAILY 09/22/24 09/22/24 Unknown History tablet,extended release 24 hr mirtazapine 7.5 mg tablet 7.5 mg PO QHS 09/22/24 09/22/24 Unknown History ranolazine 500 mg tablet,extended 500 mg PO Q12H 09/22/24 09/22/24 Unknown History release,12 hr trazodone 50 mg tablet 50 mg PO QHS 09/22/24 09/22/24 Unknown History Allergies Allergy/AdvReac Type Severity Reaction Status Date / Time Penicillins Allergy Other Verified 09/23/24 01:21 Sulfa (Sulfonamide Allergy Nausea and Verified 09/23/24 01:21 Antibiotics) Vomiting Review of Systems Review of Systems: All systems reviewed & are unremarkable except as noted in HPI and below [facility] Past Medical History Medical History Gout Elevated cholesterol Diabetes Kidney stones Surgical History Surgical History History of lithotripsy H/O arthroscopy of right knee Family History Family History Son No problems noted. Sibling Heart disease Father Heart disease Cancer Social History Social History Smoking status: Never smoker Second hand tobacco smoke exposure: No Alcohol intake: never Substance use: never Substance use type: does not use Lack of Transportation: No Lack of Food: Never True Current Housing: I Have Housing Concerned About Future Housing: No Difficulty Paying Gas/Electric Bills: No Difficulty Paying for Meds: No Currently Unemployed: No Education: Associate Degree Difficulty w/ Childcare or Family Care: No Living arrangements: with family Gender identity (if verbalized by the patient): Male Spiritual care concerns: No Exam Narrative: EXAMINATION OF ORGAN SYSTEMS/BODY AREAS: Constitutional: Vital signs per nursing GENERAL:[No acute distress, non-toxic appearing.] HEAD: Normal with no signs of head trauma. EYES: EOMI, conjunctiva normal ENT: Hearing grossly intact LUNGS: Nonlabored breathing. HEART: [Regular rate and rhythm] ABD: [Soft], [nontender to palpation] EXT: Normal range of motion SKIN: [No rashes or lesions.] NEURO: [Alert; answering questions appropriately and following commands. Left arm and leg far weaker than right, left facial droop.] PSYCH: Normal affect Course Vital Signs Vital signs: Vital Signs Temperature 98.0 F 09/22/24 18:14 Pulse Rate 66 09/22/24 18:14 Respiratory Rate 14 09/22/24 18:14 Blood Pressure 142/51 H 09/22/24 18:14 Pulse Oximetry 100 09/22/24 18:14 Oxygen Delivery Room Air 09/22/24 18:14 Temperature 97.6 F 09/22/24 23:49 Pulse Rate 60 09/23/24 00:00 Respiratory Rate 15 09/22/24 23:49 Blood Pressure 152/58 H 09/22/24 23:49 Pulse Oximetry 98 09/23/24 00:00 Oxygen Delivery Room Air 09/23/24 00:00 MDM - Neuro Symptoms/Deficit MDM Narrative Medical decision making narrative: 78-year-old male presents here with concern for acute stroke, his family 1st noticed he was acting unusually yesterday, then today noticed he seemed more tired, and seemed to be using his left side less. On my exam he definitely has weakness to the left compared to right with drift to left upper extremity and lower extremity, as well as left-sided facial droop. Unfortunately last known well was more than 4 hours ago, so he is not a tPA candidate. CTA head/neck does not show any obvious LVO or anything else that can be intervened on. Discussed with neurologist here for admission, discussed with hospitalist. Discussed with patient and family including , brother, they are agreeable to plan for admission for MRI, Neurology consult, possible rehab. Lab Data 09/22/24 19:15 09/22/24 19:15 Labs: Lab Results 09/22/24 Range/Units 19:15 WBC 8.2 (4.5-10.0) K/mm3 RBC 4.06 L (4.6-6.20) M/mm3 Hgb 11.7 L (14.0-18.0) g/dL Hct 35.6 L (42.0-52.0) % MCV 87.7 (80-100) fl MCH 28.8 (26-34) pg MCHC 32.9 (32-36) g/dl RDW 15.1 H (11.5-14.5) % Plt Count 216 (150-375) k/mm3 MPV 11.2 H (7.4-10.4) fl Immature Gran % (Auto) 0.4 (0-0.5) % Neut % (Auto) 73.8 H (45.5-73.1) % Lymph % (Auto) 14.7 L (18.3-44.2) % Paul[place] % (Auto) 8.9 H (2.6-8.5) % Eos % (Auto) 1.6 (0-4.4) % Baso % (Auto) 0.6 (0.2-1.2) % Lymph # (Auto) 1.21 (0.9-3.2) K/mm3 [place] # (Auto) 0.7 H (0.1-0.6) K/mm3 Eos # (Auto) 0.1 (0-0.3) K/mm3 Baso # (Auto) 0.1 (0.0-0.1) K/mm3 Abs Immat Gran (auto) 0.03 (0.00-0.031) K/mm3 Absolute Neuts (auto) 6.1 (1.3-6.7) K/mm3 Absolute Nucleated RBC 0.000 (0.0-0.012) K/mm3 Nucleated RBC % 0.0 (0.0-0.2) % PT 13.4 (11.1-14.7) Seconds INR 1.0 APTT 28.8 (22.3-36.8) Seconds Sodium 141 (137-145) mmol/L Potassium 3.7 (3.4-5.0) mmol/L Chloride 102 (98-107) mmol/L Carbon Dioxide 28 (22-30) mmol/L Anion Gap 11 (4-12) mmol/L BUN 44 H D (9-20) mg/dL Creatinine 1.42 H (0.7-1.3) mg/dL Estim Creat Clear Calc 39 ml/min Estimated GFR 48 L (59 - ) Glucose 96 (65-110) mg/dL Calcium 10.4 H (8.4-10.2) mg/dL Total Bilirubin 1.2 (0.2-1.3) mg/dL AST 102 H (17-59) U/L ALT 32 (6-50) U/L Alkaline Phosphatase 47 (38-126) U/L Total Protein 7.3 (6.3-8.2) g/dL Albumin 4.0 (3.5-5.1) g/dL Critical Care Time Critical Care Time Critical Care Time: Yes Total Critical Care Time: 31 Discharge Plan Discharge Clinical Impression: Left arm weakness, Facial droop, Left leg weakness, Acute cerebrovascular accident (CVA) Patient Disposition: Still a Patient Condition: Serious
[2024-09-22] MEDS: CLOPIDOGREL BISULFATE 300 MG TABLET PO (21:54)
[2024-09-22] MEDS: ASPIRIN 81 MG CHEWABLE TABLET PO (21:56)
[2024-09-22] MEDS: LACTATED RINGERS 1,000 ML 125 ML IV CONT (21:56)
--- NOTE | 2024-09-22 22:43 | ADMGEN ---
This patient, Conner Adams, was admitted to IMU Room 231-01. Patient/family oriented to hospital policies and general routines including ID bracelet, bed and alarms, visiting hours, pain management, procedures, bathroom and other care routines, personal items, smoking policy, room service/diet, and visiting hours. Information on how to activate the Rapid Response Team has been discussed. Patient/Family are encouraged to report perceived risks to care and to ask questions if they do not understand what they are told or what they should do.
--- NOTE | 2024-09-22 22:45 | P.HP_ITS ---
H&P: HPI History of Present Illness Date/Time: 09/22/24 22:45 Chief Complaint: Altered mental status Narrative: 78-year-old male with history of advanced dementia, dva-sabfbaw-awelrmcwk diabetes mellitus. He is brought in by his . He previously lived at home but presented to [place] few weeks prior chest pain. It was decided he did not have a coronary event but was given metoprolol for preventative management due to his age and dementia. He was discharged to [facility] temporarily. He is brought in from there as his reports for an entire day the patient has been much more lethargic and unresponsive than usual. She also noticed he was drooling at the left side of his lip and had left hand weakness and it was turned in. He could not push himself up with his left arm onto his walker. Review of Systems Review of Systems: All systems reviewed & are unremarkable except as noted in HPI and below (Subjective/HPI) [facility] Past Medical History Medical History Gout Elevated cholesterol Diabetes Kidney stones Surgical History Surgical History History of lithotripsy H/O arthroscopy of right knee Social History Social History Smoking status: Never smoker Alcohol intake: never Substance use: never Substance use type: does not use Lack of Transportation: No Lack of Food: Never True Current Housing: I Have Housing Concerned About Future Housing: No Difficulty Paying Gas/Electric Bills: No Difficulty Paying for Meds: No Currently Unemployed: No Education: Associate Degree Difficulty w/ Childcare or Family Care: No Living arrangements: with family Gender identity (if verbalized by the patient): Male Spiritual care concerns: No Meds Home Medications and Allergies Home Medications ?Medication ?Instructions ?Recorded ?Confirmed ?Type donepezil 10 mg tablet 10 mg PO HS 04/03/22 12/23/22 History fenofibrate nanocrystallized 145 145 mg PO DAILY 04/03/22 12/23/22 History mg tablet losartan 50 mg tablet 50 mg PO DAILY 04/03/22 12/23/22 History metformin 1,000 mg tablet 1,000 mg PO BID 04/03/22 12/23/22 History cholecalciferol (vitamin D3) 25 25 mcg PO DAILY 12/23/22 12/23/22 History mcg (1,000 unit) capsule (Vitamin D3) cyanocobalamin (vitamin B-12) 2,500 mcg sublingual DAILY 12/23/22 12/23/22 History 2,500 mcg sublingual tablet (Vitamin B-12) Allergies Allergy/AdvReac Type Severity Reaction Status Date / Time Penicillins Allergy Other Verified 12/12/23 01:03 Sulfa (Sulfonamide Allergy Nausea and Verified 12/12/23 01:03 Antibiotics) Vomiting Vital Signs Vital Signs - 24 hr 09/22/24 18:14 09/22/24 18:23 09/22/24 18:47 Temperature 98.0 F Pulse Rate 66 66 68 Respiratory Rate 14 11 L 13 Blood Pressure 142/51 H 142/51 H Pulse Oximetry 100 100 Oxygen Delivery Room Air 09/22/24 19:40 09/22/24 19:45 09/22/24 19:46 Temperature Pulse Rate 64 66 66 Respiratory Rate 11 L 12 12 Blood Pressure 149/45 H Pulse Oximetry Oxygen Delivery 09/22/24 19:47 09/22/24 20:33 09/22/24 20:59 Temperature Pulse Rate 65 65 68 Respiratory Rate 22 H 12 11 L Blood Pressure 135/79 143/56 H Pulse Oximetry 100 100 Oxygen Delivery 09/22/24 21:01 09/22/24 21:16 09/22/24 21:31 Temperature Pulse Rate 64 66 63 Respiratory Rate 11 L 12 11 L Blood Pressure 144/54 H 103/51 L 147/58 H Pulse Oximetry 99 99 100 Oxygen Delivery Exam Const: General: comfortable and no acute distress Other: A&O times 1. Somnolent. Arousable to loud voice and touch slow to react. He does follow commands HENMT: Other: Tacky mucous membranes Eyes: Pupils: Equal, round and reactive pupils present Neck: Neck: supple Resp: Effort & Inspection: normal respiratory effort Auscultation: clear to auscultation bilaterally Cardio: Rate: regular rate Rhythm: regular rhythm GI: Inspection: non-distended GI Palp: Yes Soft to palpation Neuro: Other: Requires repeated stimulation to arouse. Does not know month or age. Partial Paralysis of left lower face. Left upper arm drift. Left hand spastic paralysis. NIH stroke scale 7. Extrem: General: no edema H&P: Results Labs Labs: Short CBC 09/22/24 Range/Units 19:15 WBC 8.2 (4.5-10.0) K/mm3 Hgb 11.7 L (14.0-18.0) g/dL Hct 35.6 L (42.0-52.0) % Plt Count 216 (150-375) k/mm3 BMP 09/22/24 19:15 Sodium 141 Potassium 3.7 Chloride 102 Carbon Dioxide 28 BUN 44 H D Creatinine 1.42 H Glucose 96 Calcium 10.4 H Liver Function 09/22/24 Range/Units 19:15 Total Bilirubin 1.2 (0.2-1.3) mg/dL AST 102 H (17-59) U/L ALT 32 (6-50) U/L Alkaline Phosphatase 47 (38-126) U/L Albumin 4.0 (3.5-5.1) g/dL Assessment and Plan Assessment and plan (1) Altered mental status: Code(s): R41.82 - Altered mental status, unspecified Status: Acute (2) Left arm weakness: Code(s): R29.898 - Other symptoms and signs involving the musculoskeletal system Status: Acute (3) Acute kidney injury: Code(s): N17.9 - Acute kidney failure, unspecified Status: Acute Plan 78-year-old male with history of advanced dementia, hcn-sqvlhsu-slvegjemt diabetes mellitus. He is brought in by his . He previously lived at home but presented to [place] few weeks prior chest pain. It was decided he did not have a coronary event but was given metoprolol for preventative management due to his age and dementia. He was discharged to [facility] temporarily. He is brought in from there as his reports for an entire day the patient has been much more lethargic and unresponsive than usual. She also noticed he was drooling at the left side of his lip and had left hand weakness and it was turned in. He could not push himself up with his left arm onto his walker. ----- Neurology consultation conducted from the ER. Patient loaded with aspirin 81 mg p.o. x1, Plavix 200 mg p.o. x1, patient given 2 L lactated Ringer's. Patient will be admitted for MRI. Stroke precautions/fall precautions. P.o., speech therapy evaluation. PT OT evaluations. Care coordination consultation. Neuro checks q.4 hours. Elevate head of bed. Telemetry. Pepcid. Continue baby aspirin and atorvastatin daily. Continue with D5 normal saline. Accu-Cheks q.6 hours. Repeat renal function panel in the morning status post fluid resuscitation. reports patient is DNR. SCDs. Previously lived at home alone, was temporarily at [facility]. Advanced dementia, dependent, ambulates with walker at baseline. Hospitalist [facility] Advance Care Plan I have confirmed that the patient's Advanced Care Plan is present, code status is documented, or surrogate decision maker is listed in patient medical record.: Yes Medication Reconciliation I have utilized all available resources to obtain, update and review the patients current medications (includes all prescriptions, OTC, herbals, cannabis, and nutritional supplements).: Yes
[2024-09-22] MEDS: DEXTROSE 5%/0.9% SOD CHL 1,000 ML 100 ML IV CONT (23:57)
[2024-09-23] VITALS (15 sets, daily range): BP systolic 127–149; BP diastolic 43–53; PULSE 56–73; RESP 12–20; TEMP 36.4–36.8; O2SAT 95–100
[2024-09-23 04:14] LABS: Hematocrit 36.9 % (42.0-52.0); Hemoglobin 11.8 g/dL (14.0-18.0); Immature Granulocyte Percent A 0.4 % (0-0.5); Lymphocytes Absolute Auto 1.80 K/mm3 (0.9-3.2); Mean Corpuscular HGB Conc 32.0 g/dl (32-36); Mean Corpuscular Hemoglobin 29.1 pg (26-34); Mean Corpuscular Volume 91.1 fl (80-100); Nucleated Red Blood Cells Absolute Auto 0.000 K/mm3 (0.0-0.012); Nucleated Red Blood Cells Perc 0.0 % (0.0-0.2); Platelet Count Result 198 k/mm3 (150-375); Red Blood Count 4.05 M/mm3 (4.6-6.20); White Blood Count 8.4 K/mm3 (4.5-10.0)
[2024-09-23 04:43] LABS: Anion Gap 7 mmol/L (4-12); Blood Urea Nitrogen 38 mg/dL (9-20); Calcium 9.7 mg/dL (8.4-10.2); Carbon Dioxide 24 mmol/L (22-30); Chloride 103 mmol/L (98-107); Estimated CRCL calculation 48 ml/min; Estimated Glomerular Filt Rate > 60; Glucose 112 mg/dL (65-110); Magnesium 2.1 mg/dL (1.6-2.3); Potassium 3.4 mmol/L (3.4-5.0); Sodium 134 mmol/L (137-145)
--- NOTE | 2024-09-23 07:09 | P.PNIM_ITS ---
Progress Note: A&P Assessment and Plan (1) Altered mental status: Code(s): R41.82 - Altered mental status, unspecified Status: Acute Assessment and Plan: Patient reportedly more lethargic/unresponsive than usual with drooling from the left side of mouth and left sided hand weakness - Vitals stable. No electrolyte abnormality or leukocytosis. Glucose WNL. - UA ordered - Head/neck CTA: No acute intracranial process, no large vessel intracranial occlusion, high grade stenosis or aneurysm and no carotid or vertebral artery occlusion, dissection or significant stenosis - MRI brain: Mild periventricular predominant nonspecific white matter T2 hyperintensity which within normal limits for age and likely sequela of chronic small vessel ischemic disease. No acute intracranial process.Nodular enlargement of the ventricles which is progressed slightly since 07/05/2022 which remains disproportionate to the mild enlargement of the sulci which could relate to moderate central predominant diffuse age-related volume loss although differential includes normal pressure hydrocephalus (NPH: clinical triad ataxia/gait disturbance, dementia, urinary incontinence). - Monitor CBC, CMP, magnesium, troponin, and lipid profile - Monitor blood pressure, allow for permissive hypertension. - Telemetry monitoring - Monitor blood glucose (2) Left arm weakness: Code(s): R29.898 - Other symptoms and signs involving the musculoskeletal system Status: Acute Assessment and Plan: - Head/neck CTA: No acute intracranial process, no large vessel intracranial occlusion, high grade stenosis or aneurysm and no carotid or vertebral artery occlusion, dissection or significant stenosis - MRI brain: Mild periventricular predominant nonspecific white matter T2 hyperintensity which within normal limits for age and likely sequela of chronic small vessel ischemic disease. No acute intracranial process.Nodular enlargement of the ventricles which is progressed slightly since 07/05/2022 which remains disproportionate to the mild enlargement of the sulci which could relate to moderate central predominant diffuse age-related volume loss although differential includes normal pressure hydrocephalus (NPH: clinical triad ataxia/gait disturbance, dementia, urinary incontinence). - Echo ordered - Started on ASA 81 mg PO daily and Plavix 75 mg PO daily - Start high-intensity statin: Atorvastatin 80 mg daily - Continue D5/NS at 100 ml/hr for continued perfusion, will likely transition to NS if patients ST eval goes well - Initiate stroke protocol, NIH Stroke Scale, neuro's q.4 hours - Monitor CBC, CMP, magnesium, troponin, and lipid profile - Monitor blood pressure, allow for permissive hypertension. Holding home antihypertensives: metoprolol 25 mg daily, losartan 25 mg daily, Imdur 30 mg daily, and lasix 20 mg daily - Telemetry monitoring - Monitor blood glucose - PT/OT eval and treat - ST eval and treat - Neurology consulted Per prior provider note, ER neuro consult had patient loaded with ASA 81 mg PO x1, Plavix 200 mg PO x1 and 2L LR Discussed patient with neurology Dr. Modi and started patient on plavix 75 mg daily, will continue asa and statin (3) Acute kidney injury: Code(s): N17.9 - Acute kidney failure, unspecified Status: Acute Assessment and Plan: Slight MARYELLEN on admission with BUN/Cr 44/1.42 with GFR 48. Baseline WNL. Received LR 2L in the ED and the BUN/Cr has since returned to normal Likely related to dehydration as resolved with fluids however given AMS a UA has been ordered to rule out infection UA ordered Avoid nephrotoxic medications Renally dose medications Monitor I/O (4) Diabetes: Code(s): E11.9 - Type 2 diabetes mellitus without complications Status: Acute Assessment and Plan: - hypoglycemia protocol - POC blood glucose ACHS - home medication - none - correct regimen ordered - low dose SSI (5) Dementia: Code(s): F03.90 - Unspecified dementia, unspecified severity, without behavioral disturbance, psychotic disturbance, mood disturbance, and anxiety Status: Acute Assessment and Plan: Per RN, the patients stated that he has Stage 7 Alzheimer Continue donepezil Time Spent With Patient Time with patient: 25 - 35 minutes Subjective Date/time seen: 09/23/24 07:09 Interval history: 78 year old male with past medical history of non insulin dependent diabetes and advanced dementia presents to the hospital from [facility] for altered mental status and left sided weakness. Patient is pleasant lying comfortably in bed. He is alert and oriented to self though he does not say his first name he goes by his nickname [email or web address]. Per RN the stated that patient has stage 7 Alzheimer's. Patient had no complaints at time of assessment denying any chest pain, shortness a breath palpitations, nausea/vomiting, and abdominal pain. Review of Systems Review of Systems: All systems reviewed & are unremarkable except as noted in HPI and below Exam Narrative: AF HR 60 RR 12 Spo2 98 BP 133/47 General: male in no acute respiratory distress who is nontoxic appearing, lying semi recumbent in bed. HEENT: Normocephalic. Atraumatic. Pupils are 2mm and remain equal round reactive to light. Extraocular movement intact. Sclera clear and anicteric. Moist mucous membranes. Tongue is midline. No facial asymmetry. Chest: Lungs are clear to auscultation bilaterally. No wheezes or crackles. CV: Heart was regular rate and rhythm. S1/S2. No murmurs, gallops, or rubs. Abd: Abdomen was soft. Nontender. Nondistended. Positive bowel sounds. No organomegaly or masses. Ext: No clubbing, cyanosis, or edema. DP pulses bilaterally. Neuro: Patient is alert and oriented x1 (self). Slight left sided neglect. Weak left oracle hrms developer strength and unable to move the wrist. BLE strength intact. AROM to all extremities. Cranial nerves 2-12 are intact. Speech is clear. Objective Data Vital Signs Vital Signs: Vital Signs - 24 hr 09/22/24 18:14 09/22/24 18:23 09/22/24 18:47 Temperature 98.0 F Pulse Rate 66 66 68 Respiratory Rate 14 11 L 13 Blood Pressure 142/51 H 142/51 H Pulse Oximetry 100 100 Oxygen Delivery Room Air 09/22/24 19:40 09/22/24 19:45 09/22/24 19:46 Temperature Pulse Rate 64 66 66 Respiratory Rate 11 L 12 12 Blood Pressure 149/45 H Pulse Oximetry Oxygen Delivery 09/22/24 19:47 09/22/24 20:33 09/22/24 20:59 Temperature Pulse Rate 65 65 68 Respiratory Rate 22 H 12 11 L Blood Pressure 135/79 143/56 H Pulse Oximetry 100 100 Oxygen Delivery 09/22/24 21:01 09/22/24 21:16 09/22/24 21:31 Temperature Pulse Rate 64 66 63 Respiratory Rate 11 L 12 11 L Blood Pressure 144/54 H 103/51 L 147/58 H Pulse Oximetry 99 99 100 Oxygen Delivery 09/22/24 23:49 09/23/24 00:00 09/23/24 00:00 Temperature 97.6 F Pulse Rate 63 60 Respiratory Rate 15 Blood Pressure 152/58 H Pulse Oximetry 100 98 Oxygen Delivery Room Air 09/23/24 02:00 09/23/24 03:57 09/23/24 04:00 Temperature Pulse Rate 58 L 56 L Respiratory Rate Blood Pressure Pulse Oximetry 98 Oxygen Delivery Room Air 09/23/24 04:40 09/23/24 06:00 Temperature 97.7 F Pulse Rate 73 Respiratory Rate 16 Blood Pressure 145/48 H Pulse Oximetry 100 Oxygen Delivery Intake/Output Intake/Output: Intake & Output 09/20/24 09/21/24 09/22/24 09/23/24 23:59 23:59 23:59 23:59 Intake Total 1000 0 Balance 1000 0 Meds/Results Medications: Active Medications Generic Name Dose Route Start Last Admin Trade Name Freq PRN Reason Stop Dose Admin Aspirin 81 mg 09/23/24 09:00 Aspirin 81 Mg Enteric Tablet PO QAM JITENDRA Atorvastatin Calcium 80 mg 09/23/24 09:00 Atorvastatin 40 Mg Tablet PO DAILY JITENDRA Dextrose 12.5 gm 09/22/24 22:47 Dextrose 50% 25 Gm/50 Ml Syringe IV PUSH PRN PRN Hypoglycemia Protocol Famotidine 20 mg 09/22/24 22:55 09/23/24 00:00 Famotidine 20 Mg/2 Ml Vial IV PUSH 20 mg Q12HR JITNEDRA Administration Glucose 15 gm 09/22/24 22:47 Glucose Oral Gel 15 Gm Of Glucse In 37.5 Gm Tube PO PRN PRN Hypoglycemia Protocol Dextrose/Sodium Chloride 1,000 mls @ 100 mls/hr 09/22/24 22:45 09/22/24 23:57 Dextrose 5% Sodium Chloride 0.9% IV CONT 100 mls/hr .Q10H JITENDRA Administration Dextrose 1,000 mls @ 100 mls/hr 09/22/24 22:47 Dextrose 5% 1,000 Ml IVPB PRN PRN Hypoglycemia Protocol Radiology Results: ITS Impressions Head/Neck CTA 09/22/24 20:23 IMPRESSION: No acute intracranial process. No large vessel intracranial occlusion, high-grade intracranial stenosis, or aneurysm. No carotid or vertebral artery occlusion, dissection, or significant stenosis. Labs Labs: Laboratory Results - last 24 hr 09/22/24 09/22/24 09/23/24 19:15 23:55 03:59 WBC 8.2 8.4 RBC 4.06 L 4.05 L Hgb 11.7 L 11.8 L Hct 35.6 L 36.9 L MCV 87.7 91.1 MCH 28.8 29.1 MCHC 32.9 32.0 RDW 15.1 H 15.1 H Plt Count 216 198 MPV 11.2 H 11.3 H Immature Gran % (Auto) 0.4 0.4 Neut % (Auto) 73.8 H 67.2 Lymph % (Auto) 14.7 L 21.4 [place] % (Auto) 8.9 H 8.2 Eos % (Auto) 1.6 2.1 Baso % (Auto) 0.6 0.7 Lymph # (Auto) 1.21 1.80 [place] # (Auto) 0.7 H 0.7 H Eos # (Auto) 0.1 0.2 Baso # (Auto) 0.1 0.1 Abs Immat Gran (auto) 0.03 0.03 Absolute Neuts (auto) 6.1 5.7 Absolute Nucleated RBC 0.000 0.000 Nucleated RBC % 0.0 0.0 PT 13.4 INR 1.0 APTT 28.8 Sodium 141 134 L Potassium 3.7 3.4 Chloride 102 103 Carbon Dioxide 28 24 Anion Gap 11 7 BUN 44 H D 38 H Creatinine 1.42 H 1.13 Estim Creat Clear Calc 39 48 Estimated GFR 48 L > 60 Glucose 96 112 H POC Capillary Glucose 82 Calcium 10.4 H 9.7 Magnesium 2.1 Total Bilirubin 1.2 AST 102 H ALT 32 Alkaline Phosphatase 47 Total Protein 7.3 Albumin 4.0 Quality VTE Prophylaxis VTE prophylaxis: mechanical ordered
[2024-09-23] MEDS: DEXTROSE 5%/0.9% SOD CHL 1,000 ML 100 ML IV CONT ×2 (08:50→18:20)
[2024-09-23] MEDS: ATORVASTATIN 40 MG TABLET 80 MG PO (08:50)
[2024-09-23] MEDS: ASPIRIN 81 MG ENTERIC TABLET PO (08:51)
[2024-09-23] MEDS: FAMOTIDINE 20 MG/2 ML VIAL IV PUSH ×3 (08:51→21:16)
--- NOTE | 2024-09-23 16:36 | P.CONNEU_ITS ---
Assessment and Plan Assessment and plan (1) Left wrist drop: Code(s): M21.332 - Wrist drop, left wrist Status: Acute (2) Chronic neck pain: Code(s): M54.2 - Cervicalgia; G89.29 - Other chronic pain Status: Acute (3) Dementia: Code(s): F03.90 - Unspecified dementia, unspecified severity, without behavioral disturbance, psychotic disturbance, mood disturbance, and anxiety Status: Acute (4) Diabetes: Code(s): E11.9 - Type 2 diabetes mellitus without complications Status: Acute (5) Acute kidney injury: Code(s): N17.9 - Acute kidney failure, unspecified Status: Acute (6) Normal pressure hydrocephalus: Code(s): G91.2 - (Idiopathic) normal pressure hydrocephalus Status: Acute Assessment and Plan: it was noted on the MRI of the brain that the ventricles are enlarged compared to the degree of atrophy however patient follows with a neurologist at [facility] and I have advised his to discuss that further with them and see if they would like to get an opinion from a neurosurgeon. His does not think that at this stage she will want any significant intervention. However I shall leave this for further discussion at [facility]. Plan Clinically he does not appear to have evidence of a stroke or other he has evidence of a left wrist drop. Generally you would expect somebody to have laid down on the left arm with the head against a hard surface for this to occur however I cannot find any definite evidence for the same. There is no evidence for trauma to the left arm. He does complain of significant neck pain according to his . I will go ahead and get an MRI of the cervical spine and ask occupational therapist to make a splint for his left wrist. He will require EMG nerve can study of the left arm in about 3 weeks. This will require some follow-up. Patient has a neurologist at [facility] as it is certainly up to his to decide regarding the location and follow-up for further neurologic care. I shall be glad to assist if they wish to do it here. With regard to dementia he is already on Aricept and Namenda and follows with a neurologist at [facility]. To the mild possible normal pressure hydrocephalus as discussed above this can be followed up with the patient neurologist in [facility]. While he is here in the hospital I shall be glad to follow him up. According his he does have history of dementia and difficulty with gait and problems control of bladder. Consult date: 09/23/24 HPI: Conner Adams is a 78 year old male With history of dementia Alzheimer's type presented to the hospital with weakness of the left arm. Patient's was also present subsequent to this examination I had fair discussion with her. Patient's states that today he was hallucinating the [facility] where he has been only for last 2 weeks. He does follow-up with a neurologist for last 5 years at [facility] regarding his neurological status. Last CT scan or radiologic studies were done approximately 2 years ago over there but we do not have the results of those. Patient was suspected of having a stroke and was admitted to the hospital for further management. Patient does complain of pain in the neck. There is no history of him lying on the left side against any hard surface which was a question raised in view of the apparent left wrist drop. There is history of diabetes mellitus. His CT scan of the brain and CT angiogram of the head and neck were performed which did not show any significant abnormality. CT scan of brain did show somewhat enlarged ventricles however MRI of the brain also raise possibility of normal pressure hydrocephalus nevertheless there is no evidence for acute stroke. MRI was done this morning where the patient came last night. His blood pressure has been stable. No other additional new symptoms. Review of Systems 2 Review of Systems: All systems reviewed & are unremarkable except as noted in HPI and below PMFSH Past Medical History Medical History (Updated 09/23/24 @ 16:41 by Jennifer Modi MD) Normal pressure hydrocephalus Chronic neck pain Left wrist drop Dementia Gout Elevated cholesterol Diabetes Kidney stones Surgical History Surgical History History of lithotripsy H/O arthroscopy of right knee Family History Family History Son No problems noted. Sibling Heart disease Father Heart disease Cancer Social History Social History Smoking status: Never smoker Second hand tobacco smoke exposure: No Alcohol intake: never Substance use: never Substance use type: does not use Lack of Transportation: No Lack of Food: Never True Current Housing: I Have Housing Concerned About Future Housing: No Difficulty Paying Gas/Electric Bills: No Difficulty Paying for Meds: No Currently Unemployed: No Education: Associate Degree Difficulty w/ Childcare or Family Care: No Living arrangements: with family Gender identity (if verbalized by the patient): Male Spiritual care concerns: No Meds Home Medications and Allergies Home Medications ?Medication ?Instructions ?Recorded ?Confirmed ?Type donepezil 10 mg tablet 10 mg PO HS 04/03/22 09/22/24 History fenofibrate nanocrystallized 145 145 mg PO DAILY 04/03/22 09/22/24 History mg tablet losartan 50 mg tablet 25 mg PO DAILY 04/03/22 09/22/24 History cholecalciferol (vitamin D3) 25 25 mcg PO DAILY 12/23/22 09/22/24 History mcg (1,000 unit) capsule (Vitamin D3) cyanocobalamin (vitamin B-12) 2,500 mcg sublingual DAILY 12/23/22 09/22/24 History 2,500 mcg sublingual tablet (Vitamin B-12) furosemide 20 mg tablet (Lasix) 20 mg PO DAILY 09/22/24 09/22/24 History isosorbide mononitrate 30 mg 30 mg PO DAILY 09/22/24 09/22/24 History tablet,extended release 24 hr memantine 10 mg tablet 10 mg PO BID 09/22/24 09/22/24 History metoprolol succinate 25 mg 25 mg PO DAILY 09/22/24 09/22/24 History tablet,extended release 24 hr mirtazapine 7.5 mg tablet 7.5 mg PO QHS 09/22/24 09/22/24 History ranolazine 500 mg tablet,extended 500 mg PO Q12H 09/22/24 09/22/24 History release,12 hr trazodone 50 mg tablet 50 mg PO QHS 09/22/24 09/22/24 History Allergies Allergy/AdvReac Type Severity Reaction Status Date / Time Penicillins Allergy Other Verified 09/23/24 01:21 Sulfa (Sulfonamide Allergy Nausea and Verified 09/23/24 01:21 Antibiotics) Vomiting Vital Signs Vital Signs - 24 hr 09/22/24 18:14 09/22/24 18:23 09/22/24 18:47 Temperature 98.0 F Pulse Rate 66 66 68 Respiratory Rate 14 11 L 13 Blood Pressure 142/51 H 142/51 H Pulse Oximetry 100 100 Oxygen Delivery Room Air 09/22/24 19:40 09/22/24 19:45 09/22/24 19:46 Temperature Pulse Rate 64 66 66 Respiratory Rate 11 L 12 12 Blood Pressure 149/45 H Pulse Oximetry Oxygen Delivery 09/22/24 19:47 09/22/24 20:33 09/22/24 20:59 Temperature Pulse Rate 65 65 68 Respiratory Rate 22 H 12 11 L Blood Pressure 135/79 143/56 H Pulse Oximetry 100 100 Oxygen Delivery 09/22/24 21:01 09/22/24 21:16 09/22/24 21:31 Temperature Pulse Rate 64 66 63 Respiratory Rate 11 L 12 11 L Blood Pressure 144/54 H 103/51 L 147/58 H Pulse Oximetry 99 99 100 Oxygen Delivery 09/22/24 23:49 09/23/24 00:00 09/23/24 00:00 Temperature 97.6 F Pulse Rate 63 60 Respiratory Rate 15 Blood Pressure 152/58 H Pulse Oximetry 100 98 Oxygen Delivery Room Air 09/23/24 02:00 09/23/24 03:57 09/23/24 04:00 Temperature Pulse Rate 58 L 56 L Respiratory Rate Blood Pressure Pulse Oximetry 98 Oxygen Delivery Room Air 09/23/24 04:40 09/23/24 06:00 09/23/24 08:00 Temperature 97.7 F 97.6 F Pulse Rate 73 62 Respiratory Rate 16 12 Blood Pressure 145/48 H 149/53 H Pulse Oximetry 100 98 Oxygen Delivery 09/23/24 08:00 09/23/24 10:00 09/23/24 11:23 Temperature 98.0 F Pulse Rate 60 61 57 L Respiratory Rate 12 Blood Pressure 133/47 L Pulse Oximetry 98 Oxygen Delivery 09/23/24 12:00 09/23/24 14:00 09/23/24 16:00 Temperature Pulse Rate 61 60 66 Respiratory Rate Blood Pressure Pulse Oximetry Oxygen Delivery Exam 2 Const: General: cooperative, no acute distress and alert HENMT: Head: atraumatic Eyes: Alignment and Position: position normal Pupils: Equal, round and reactive pupils present EOM: EOMs intact bilaterally Resp: Effort & Inspection: normal respiratory effort Cardio: Rate: regular rate Rhythm: regular rhythm Skin: General skin exam: normal color Neuro: General: Unable to assess gait Cranial nerves: Yes CN's II-XII intact bilaterally, Yes Equal, round and reactive pupils present, Yes Bilaterally intact EOM present, Yes Nystagmus not present, Yes facial symmetry and Yes Midline tongue present Speech: normal speech Motor exam (neuro): 5 /5 motor strength present throughout ( Except for a significant left wrist drop), Motor fasciculations not present, Normal motor muscle tone present throughout, Motor abnormalities not present and Tremors during motor activity present Sensory Exam: normal sensation Results Labs 09/23/24 03:59 09/23/24 03:59 Labs: Short CBC 09/22/24 09/23/24 Range/Units 19:15 03:59 WBC 8.2 8.4 (4.5-10.0) K/mm3 Hgb 11.7 L 11.8 L (14.0-18.0) g/dL Hct 35.6 L 36.9 L (42.0-52.0) % Plt Count 216 198 (150-375) k/mm3 BMP 09/22/24 09/23/24 19:15 03:59 Sodium 141 134 L Potassium 3.7 3.4 Chloride 102 103 Carbon Dioxide 28 24 BUN 44 H D 38 H Creatinine 1.42 H 1.13 Glucose 96 112 H Calcium 10.4 H 9.7 Liver Function 09/22/24 Range/Units 19:15 Total Bilirubin 1.2 (0.2-1.3) mg/dL AST 102 H (17-59) U/L ALT 32 (6-50) U/L Alkaline Phosphatase 47 (38-126) U/L Albumin 4.0 (3.5-5.1) g/dL
[2024-09-23 17:12] LABS: Add Urine Microscopic? YES; Appearance Urine Clear (Clear); Glucose Urine UA 1+ mg/dL (Negative); Leukocyte Esterase Ur Trace LEU/UL (Negative); Nitrate Urine Negative (Negative); Non Pathogenic Casts 0-2; Specific Grav Ur 1.038 (1.001-1.035)
--- NOTE | 2024-09-23 17:49 | PCSTNOTE ---
Please refer to the Bedside Swallow Evaluation and Communication Evaluation in the EMR. Please note, silent aspiration cannot be ruled out at bedside. This 78 year old male patient was admitted to [facility] on 09/22 due to altered mental status. The patient has a past medical history significant for advanced dementia (Stage 7 Alzheimer's). The patient demonstrated L sided weakness and, per chart review, had a NIH stroke scale 7. A communication evaluation was ordered to assess the patients ability to expressively and receptively communicate as well as to assess cognition. A bedside swallow evaluation (BSE) was ordered to determine swallowing safety during oral intake. The patient is missing some upper and lower dentition and was NPO before the BSE took place. ST spoke with the patient's , Lena, this date. The patients brother and 2 family friends were intermittently present for BSE and communication evaluation. Lena stated that the patient had trouble swallowing before being admitted to [facility], and that a speech therapist was requested where the patient resides ([facility] in [place]) but an evaluation has not been completed yet. Lena stated that the patient has more trouble with food selectivity rather than swallowing, and the patient will often say how bad everything tastes. Per the patients , patient has not been eating much for ~2 months now. In regards to communication, the patient is demonstrating a minor L sided facial droop. The patients stated that the patients voice is slightly distorted and the patient will occasionally exhibit slur-like verbalizations but everything else seems the same as before. Communication Evaluation: When evaluating auditory comprehension, the patient demonstrated 40% accuracy when naming body parts and objects (e.g., patient called a straw a pencil). When answering simple yes/no questions, the patient demonstrated 40% accuracy and verbalized no to being in the hospital. The patient demonstrated 100% accuracy when following simple 1-step directions and demonstrated 0% accuracy when answering questions to assess simple paragraph retention. Regarding verbal expression, the patient demonstrated 100% accuracy when completing tasks targeting automatic speech, single word repetition, and automatic cued speech. The patient demonstrated 50% accuracy when completing sentence repetition. The patient exhibited 100% accuracy when completing open ended cued speech and 40% accuracy when answering wh- questions. The patient benefited from phonemic cues this date. When naming an object's function, the patient demonstrated 40% accuracy (e.g., What do you do with a knife? Patient: Scratch my back.. Regarding orientation, the patient demonstrated 0% accuracy regarding spatial and temporal orientation. The patient additionally demonstrated 0% accuracy regarding recent memory. Bedside Swallow Evaluation: An oral motor exam was completed to assess the range of motion and strength of the patients oral mechanism to ensure it was adequate for oral intake. The patient was resistant to directions and would not stick out tongue. The patient demonstrated a good lip seal. Trials of thin liquid (ice chips/water), puree (pudding), mixed consistency (fruit cocktail), and a solid consistency (keri cracker) were trialed this date via spoon, straw, and hand. The patient coughed following the first ice chip but vocal quality remained clear. Following the first trial, all other trials demonstrated no s/s of aspiration. The pt?s vocal quality remained clear and the pt did not cough/throat clear. Oral transit was timely. Oral residue was noted on the keri cracker and was cleared with a trial of thin liquid. Laryngeal elevation was adequate and timely for all swallows. Please note that silent aspiration cannot be ruled out at bedside. Given the results of these assessments, it is recommended that this patient receive skilled speech therapy treatment 2-3x a week to target auditory comprehension, verbal expression, and orientation. Despite the patient having advanced Alzheimer's, the patients , Lena, verbalized that the difficulties the patient is having is not baseline. It is additionally recommended that the pt be placed on an IDDSI Level 7- Regular Solids and IDDSI Level 1-Thin Liquid diet. The pt should follow these standard swallowing precautions: Small bites/sips, sit upright during meals, and alternate solids/liquids with solid consistencies, and minimize distractions during oral intake. It is recommended that the patient have frequent observation or 1:1 supervision to aid in oral intake. GARRY Gomez and LIZANDRO Auguste were notified of communication evaluation and BSE results and recommendations. Thank you for this referral.
[2024-09-23] MEDS: DONEPEZIL HCL 10 MG TABLET PO (21:16)
[2024-09-24] VITALS (8 sets, daily range): BP systolic 145–155; BP diastolic 55–73; PULSE 58–73; RESP 14–20; TEMP 36.1–36.6; O2SAT 98–100; BMI 24.0
--- NOTE | 2024-09-24 | ECHO_ITS ---
Patient Info Name: Conner Adams Age: 78 years : 1945 Gender: Male Ht: 69 in Wt: 205 lbs BSA: 2.15 m2 HR: 60 bpm BP: 127 / 53 mmHg Heart Rhythm: Sinus Rhythm Technical Quality: Fair Exam Date: 09/24/2024 1:30 PM Patient Status: I Admit Date: 09/22/2024 Exam Type: CA echo doppler w bubble study Complete two-dimensional, color flow and Doppler transthoracic echocardiogram is performed with agitated saline. Staff Referring Physician: Jennifer Modi Glove Turner: Liyah Delatorre Attending Provider: Lucy Durham Contrast/Agitated Saline Amount: 20.00 ml Administered By: Liyah Delatorre Existing IV Access: Yes IV Access Condition: patent with no signs of infiltration Summary 1. Technically difficult study with poorly visualized and limited acoustic windows. 2. Overall appears to have not have any [id number] shunt on agitated saline study. 3. Grossly normal biventricular size and systolic function. 4. There is mild aortic regurgitation. Left Ventricle The left ventricle is normal in size and systolic function. The left ventricular ejection fraction is visually estimated to be 50-55%. There is a incidental finding of false tendon in the left ventricle. Right Ventricle The right ventricle is normal in size and systolic function. Left Atria The left atrium is normal size. Right Atria The right atrium is normal size. Atrial Septum Agitated saline study did not review any [id number] shunt. Aortic Valve The aortic valve is not well visualized however there is no echo Doppler gradients to suggest hemodynamically significant aortic stenosis. There is mild aortic regurgitation. Pulmonic Valve The pulmonic valve is not visualized. Mitral Valve The mitral valve leaflets are thickened. There is no mitral stenosis. There is no mitral regurgitation. Tricuspid Valve The tricuspid valve is not well visualized. There is trace tricuspid regurgitation. Left Ventricular Outflow Tract Name Value Normal LVOT 2D LVOT Diameter 2.0 cm LVOT Doppler LVOT Peak Velocity 77 cm/s LVOT Peak Gradient 2 mmHg LVOT Mean Gradient 1 mmHg LVOT VTI 17 cm LVOT VTI/AV VTI Ratio 0.5 LVOT Stroke Volume 57 ml LVOT CO 3.6 l/min LVOT CI 1.7 l/min/m2 Mitral Valve Name Value Normal MV Diastolic Function MV E Peak Velocity 58 cm/s MV A Peak Velocity 100 cm/s MV E/A 0.6 MV Decel Time (PW) 162 ms MV Annular TDI MV E/e' (Septal) 10.1 MV E/e' (Lateral) 8.2 MV E/e' (Average) 9.1 Tricuspid Valve Name Value Normal TV Regurgitation Doppler TR Peak Velocity 220 cm/s TR Peak Gradient 19 mmHg Estimated PAP/RSVP RA Pressure 10 mmHg <=5 PA Systolic Pressure 29 mmHg <36 RV Systolic Pressure 29 mmHg <36 TV Annular TDI TV Lateral Emmy s' Velocity 14.1 cm/s >=9.5 Aortic Valve Name Value Normal AV Doppler AV Peak Velocity 169 cm/s AV Peak Gradient 11 mmHg AV Mean Gradient 7 mmHg AV VTI 33 cm AV Area (Cont Eq VTI) 1.7 cm2 >=3.0 AV Area (Cont Eq Lavell) 1.5 cm2 AV DI (Lavell) 0.46 AV Regurgitation 2D LVOT Area 3.3 cm2 Ventricles Name Value Normal LV Dimensions 2D/MM IVS Diastolic Thickness (2D) 1.0 cm 0.6-1.0 LVID Diastole (2D) 5.6 cm 4.2-5.8 LVIW Diastolic Thickness (2D) 1.0 cm 0.6-1.0 LVID Systole (2D) 3.6 cm 2.5-4.0 LVOT Diameter 2.0 cm LV Mass (2D Cubed) 218.81 g 88.00-224.00 LV Mass Index (2D Cubed) 102 g/m2 49-115 Relative Wall Thickness (2D) 0.36 <=0.42 LV Fractional Shortening/Ejection Fraction 2D/MM LV Fractional Shortening (2D) 36 % 25-43 LV EF (2D Teichholz) 65 % LV Diastolic Volume (4C MOD) 107 ml LV EF (4C MOD) 61 % LV Diastolic Volume (2C MOD) 61 ml LV EF (2C MOD) 51 % LV Diastolic Volume (BP MOD) 82 ml 62-150 LV Diastolic Volume Index (BP MOD) 38 ml/m2 34-74 LV Systolic Volume (BP MOD) 36 ml 21-61 LV Systolic Volume Index (BP MOD) 17 ml/m2 11-31 LV EF (BP MOD) 56 % 52-72 LV Diastolic Length (4C) 8.8 cm LV Systolic Length (4C) 7.2 cm LV Stroke Volume (4C MOD) 65 ml Atria Name Value Normal LA Dimensions LA Volume (4C A-L) 62 ml LA Volume (BP A-L) 60 ml RA Dimensions RA Systolic Major Alfred Length (4C) 4.8 cm 2.1-2.7 RA Area (4C) 10.0 cm2 <=18.0 Report Signatures
[2024-09-24 04:32] LABS: Hematocrit 35.0 % (42.0-52.0); Hemoglobin 11.3 g/dL (14.0-18.0); Mean Corpuscular HGB Conc 32.3 g/dl (32-36); Mean Corpuscular Hemoglobin 29.2 pg (26-34); Mean Corpuscular Volume 90.4 fl (80-100); Platelet Count Result 212 k/mm3 (150-375); Red Blood Count 3.87 M/mm3 (4.6-6.20); White Blood Count 7.5 K/mm3 (4.5-10.0)
[2024-09-24 04:53] LABS: Alanine Aminotransferase 30 U/L (6-50); Albumin Level 3.4 g/dL (3.5-5.1); Alkaline Phosphatase 45 U/L (38-126); Anion Gap 7 mmol/L (4-12); Aspartate Amino Transferase 63 U/L (17-59); Bilirubin,Total 1.2 mg/dL (0.2-1.3); Blood Urea Nitrogen 21 mg/dL (9-20); Calcium 9.8 mg/dL (8.4-10.2); Carbon Dioxide 26 mmol/L (22-30); Chloride 109 mmol/L (98-107); Estimated CRCL calculation 68 ml/min; Estimated Glomerular Filt Rate > 60; Glucose 121 mg/dL (65-110); Potassium 3.0 mmol/L (3.4-5.0); Sodium 142 mmol/L (137-145); Total Protein 6.5 g/dL (6.3-8.2)
[2024-09-24] MEDS: DEXTROSE 5%/0.9% SOD CHL 1,000 ML 100 ML IV CONT (06:28)
[2024-09-24] MEDS: ATORVASTATIN 40 MG TABLET 80 MG PO (08:41)
[2024-09-24] MEDS: ASPIRIN 81 MG ENTERIC TABLET PO (08:42)
[2024-09-24] MEDS: FAMOTIDINE 20 MG/2 ML VIAL IV PUSH ×2 (08:42→21:02)
[2024-09-24] MEDS: CYANOCOBALAMIN 500 MCG TABLET 2500 MCG PO (08:43)
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
[2024-09-24] MEDS: POTASSIUM CHLORIDE 20 MEQ ER TABLET 40 MEQ PO (08:56)
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
[2024-09-24] MEDS: LORazepam (*CRX) 0.5 MG TABLET PO ×3 (11:53→23:29)
--- NOTE | 2024-09-24 14:50 | P.CDI_ITS ---
CDI Query Clarification Request BMI: 24.1 Nutritional Diagnostic Statement: Please refer to the comprehensive nutrition assessment for further information. If you agree with diagnosis of Moderate protein calorie malnutrition related to inadequate energy intake as evidenced by family report of poor po intake for more than 1 year, a -21% wt loss noted in EMR, and NFPE findings for moderate subcutaneous fat loss and moderate muscle wasting. Please specify severity if known: * Mild * Moderate * Severe * Other/Unknown <Belkys Christie RN - Last Filed: 09/24/24 14:50> Clarified Diagnosis Clarified Diagnosis: moderate <Kristina Landa PA-C - Last Filed: 09/24/24 16:28>
[2024-09-24] MEDS: ACETAMINOPHEN 325 MG TABLET 650 MG PO ×2 (16:40→22:30)
--- NOTE | 2024-09-24 17:15 | PC.NURSE ---
Pt moved to room 322 at 1700. Report given to LIZANDRO Bautista.
[2024-09-24] MEDS: DONEPEZIL HCL 10 MG TABLET PO (21:02)
[2024-09-25] MEDS: LORazepam (*CRX) 0.5 MG TABLET PO ×2 (05:45→21:44)
[2024-09-25] MEDS: DEXTROSE 50% 25 GM/50 ML SYRINGE IV PUSH (05:53)
[2024-09-25 06:00] VITALS: BP 130/60; PULSE 64; RESP 20; TEMP 35.8
[2024-09-25 06:47] LABS: Hematocrit 36.4 % (42.0-52.0); Hemoglobin 12.0 g/dL (14.0-18.0); Mean Corpuscular HGB Conc 33.0 g/dl (32-36); Mean Corpuscular Hemoglobin 28.8 pg (26-34); Mean Corpuscular Volume 87.5 fl (80-100); Platelet Count Result 210 k/mm3 (150-375); Red Blood Count 4.16 M/mm3 (4.6-6.20); White Blood Count 6.9 K/mm3 (4.5-10.0)
[2024-09-25 07:13] LABS: Alanine Aminotransferase 31 U/L (6-50); Albumin Level 3.5 g/dL (3.5-5.1); Alkaline Phosphatase 50 U/L (38-126); Anion Gap 6 mmol/L (4-12); Aspartate Amino Transferase 55 U/L (17-59); Bilirubin,Total 1.1 mg/dL (0.2-1.3); Blood Urea Nitrogen 14 mg/dL (9-20); Calcium 9.7 mg/dL (8.4-10.2); Carbon Dioxide 26 mmol/L (22-30); Chloride 104 mmol/L (98-107); Estimated CRCL calculation 73 ml/min; Estimated Glomerular Filt Rate > 60; Glucose 162 mg/dL (65-110); Potassium 3.3 mmol/L (3.4-5.0); Sodium 136 mmol/L (137-145); Total Protein 6.6 g/dL (6.3-8.2)
--- NOTE | 2024-09-25 08:50 | PCOTNOTE ---
Attempted to see Patient at this time. RN, present, Patient refusing to take medications and very sleepy. Therapist attempted to arouse, and move Patient for increased alertness. Patient became more aggressive with contact and verbalized, NO, Patient will not open eyes.
[2024-09-25] MEDS: FAMOTIDINE 20 MG/2 ML VIAL IV PUSH ×2 (08:59→21:44)
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
[2024-09-25] MEDS: CYANOCOBALAMIN 500 MCG TABLET 2500 MCG PO (09:54)
[2024-09-25] MEDS: ASPIRIN 81 MG ENTERIC TABLET PO (09:54)
[2024-09-25] MEDS: ATORVASTATIN 40 MG TABLET 80 MG PO (09:54)
[2024-09-25] MEDS: POTASSIUM CHLORIDE 20 MEQ PACKET (FOR LIQUID) 40 MEQ PO (10:17)
[2024-09-25 14:00] VITALS: BP 134/63; PULSE 62; RESP 18; TEMP 36.2; O2SAT 100
[2024-09-25] MEDS: ACETAMINOPHEN 325 MG TABLET 650 MG PO ×2 (16:13→21:44)
[2024-09-25 20:00] VITALS: PULSE 71; RESP 20; O2SAT 100
[2024-09-25] MEDS: DONEPEZIL HCL 10 MG TABLET PO (21:44)
[2024-09-25 21:51] VITALS: BP 155/68; PULSE 71; RESP 20; TEMP 36.7; O2SAT 100
[2024-09-25 22:05] VITALS: O2SAT 100
[2024-09-26 06:00] VITALS: BP 157/60; PULSE 61; RESP 20; TEMP 36.5; O2SAT 99
[2024-09-26 06:45] LABS: Hematocrit 35.7 % (42.0-52.0); Hemoglobin 11.9 g/dL (14.0-18.0); Mean Corpuscular HGB Conc 33.3 g/dl (32-36); Mean Corpuscular Hemoglobin 29.1 pg (26-34); Mean Corpuscular Volume 87.3 fl (80-100); Platelet Count Result 198 k/mm3 (150-375); Red Blood Count 4.09 M/mm3 (4.6-6.20); White Blood Count 6.9 K/mm3 (4.5-10.0)
[2024-09-26 07:07] LABS: Alanine Aminotransferase 27 U/L (6-50); Albumin Level 3.3 g/dL (3.5-5.1); Alkaline Phosphatase 47 U/L (38-126); Anion Gap 7 mmol/L (4-12); Aspartate Amino Transferase 41 U/L (17-59); Bilirubin,Total 1.2 mg/dL (0.2-1.3); Blood Urea Nitrogen 13 mg/dL (9-20); Calcium 9.7 mg/dL (8.4-10.2); Carbon Dioxide 24 mmol/L (22-30); Chloride 104 mmol/L (98-107); Estimated CRCL calculation 63 ml/min; Estimated Glomerular Filt Rate > 60; Glucose 88 mg/dL (65-110); Potassium 3.4 mmol/L (3.4-5.0); Sodium 135 mmol/L (137-145); Total Protein 6.2 g/dL (6.3-8.2)
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
[2024-09-26] MEDS: CYANOCOBALAMIN 500 MCG TABLET 2500 MCG PO (08:46)
[2024-09-26] MEDS: FAMOTIDINE 20 MG/2 ML VIAL IV PUSH ×2 (08:46→19:57)
[2024-09-26] MEDS: ATORVASTATIN 40 MG TABLET 80 MG PO (08:46)
[2024-09-26] MEDS: ASPIRIN 81 MG ENTERIC TABLET PO (08:47)
[2024-09-26] MEDS: ACETAMINOPHEN 325 MG TABLET 650 MG PO ×3 (08:55→19:51)
[2024-09-26 14:00] VITALS: BP 106/63; PULSE 85; RESP 16; TEMP 36.1; O2SAT 100
[2024-09-26] MEDS: LORazepam (*CRX) 0.5 MG TABLET PO (19:51)
[2024-09-26] MEDS: DONEPEZIL HCL 10 MG TABLET PO (19:57)
[2024-09-26 20:45] VITALS: BP 117/55; PULSE 78; RESP 16; TEMP 35.9; O2SAT 100
[2024-09-26 22:04] VITALS: PULSE 77; RESP 20; O2SAT 97
[2024-09-27] MEDS: LORazepam (*CRX) 0.5 MG TABLET PO ×2 (02:00→08:35)
[2024-09-27] MEDS: ACETAMINOPHEN 325 MG TABLET 650 MG PO ×2 (02:00→08:36)
[2024-09-27 05:53] VITALS: BP 135/57; PULSE 66; RESP 16; TEMP 36.4; O2SAT 100
[2024-09-27 06:22] LABS: Hematocrit 35.4 % (42.0-52.0); Hemoglobin 11.6 g/dL (14.0-18.0); Mean Corpuscular HGB Conc 32.8 g/dl (32-36); Mean Corpuscular Hemoglobin 29.0 pg (26-34); Mean Corpuscular Volume 88.5 fl (80-100); Platelet Count Result 235 k/mm3 (150-375); Red Blood Count 4.00 M/mm3 (4.6-6.20); White Blood Count 7.2 K/mm3 (4.5-10.0)
[2024-09-27 06:45] LABS: Alanine Aminotransferase 24 U/L (6-50); Albumin Level 3.3 g/dL (3.5-5.1); Alkaline Phosphatase 48 U/L (38-126); Anion Gap 4 mmol/L (4-12); Aspartate Amino Transferase 32 U/L (17-59); Bilirubin,Total 1.0 mg/dL (0.2-1.3); Blood Urea Nitrogen 17 mg/dL (9-20); Calcium 9.8 mg/dL (8.4-10.2); Carbon Dioxide 25 mmol/L (22-30); Chloride 105 mmol/L (98-107); Estimated CRCL calculation 55 ml/min; Estimated Glomerular Filt Rate > 60; Glucose 89 mg/dL (65-110); Potassium 3.6 mmol/L (3.4-5.0); Sodium 134 mmol/L (137-145); Total Protein 6.2 g/dL (6.3-8.2)
[2024-09-27] MEDS: CYANOCOBALAMIN 500 MCG TABLET 2500 MCG PO (08:29)
[2024-09-27] MEDS: ASPIRIN 81 MG ENTERIC TABLET PO (08:29)
[2024-09-27] MEDS: ATORVASTATIN 40 MG TABLET 80 MG PO (08:29)
[2024-09-27 08:36] VITALS: RESP 16; O2SAT 100
[2024-09-27] MEDS: FAMOTIDINE 20 MG/2 ML VIAL IV PUSH (08:36)
--- NOTE | 2024-09-27 13:33 | PM.DS ---
DS: Admitting Diagnosis Discharge Date 09/27/2024 Admitting Diagnosis AMS left arm weakness maryellen dm dementia DS: Discharge Diagnosis Discharge Diagnosis (1) Altered mental status: Code(s): R41.82 - Altered mental status, unspecified Status: Acute (2) Left arm weakness: Code(s): R29.898 - Other symptoms and signs involving the musculoskeletal system Status: Acute (3) Acute kidney injury: Code(s): N17.9 - Acute kidney failure, unspecified Status: Acute (4) Diabetes: Code(s): E11.9 - Type 2 diabetes mellitus without complications Status: Acute (5) Dementia: Code(s): F03.90 - Unspecified dementia, unspecified severity, without behavioral disturbance, psychotic disturbance, mood disturbance, and anxiety Status: Acute DS: Summary Hospital Course Reason for hospitalization: AMS left arm weakness maryellen dm dementia Hospital Course: 78 year old male with past medical history of non insulin dependent diabetes and advanced dementia presents to the hospital from [facility] for altered mental status and left sided weakness. Vitals stable. No electrolyte abnormality or leukocytosis. Glucose WNL. Slight MARYELLEN on admission which resolved with fluids. UA nonconcerning for infection, no nitrates, leukocytes, WBC, or bacteria noted. Head/neck CTA showed no acute intracranial process, no large vessel intracranial occlusion, high grade stenosis or aneurysm and no carotid or vertebral artery occlusion, dissection or significant stenosis. Echo showed lvef 50-55%. Neurology consulted. Patient started on asa, plavix and high dose statin. MRI brain ordered and showed mild periventricular predominant nonspecific white matter T2 hyperintensity which within normal limits for age and likely sequela of chronic small vessel ischemic disease. No acute intracranial process. Nodular enlargement of the ventricles which is progressed slightly since 07/05/2022 which remains disproportionate to the mild enlargement of the sulci which could relate to moderate central predominant diffuse age-related volume loss although differential includes normal pressure hydrocephalus (NPH: clinical triad ataxia/gait disturbance, dementia, urinary incontinence). Discussed patient with neurology Dr. 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 Given that there is no ischemic stroke seen on MRI he is in agreement with discontinuing the Plavix. Patient remains on the high-dose atorvastatin and daily aspirin. Placed in a wrist splint by OT. During admission discussed plan of care with patients who at that time decided that patient would go hospice. Care coordination consulted and patient went hospice with [facility]. Patient discharged back to [facility]. Status at Discharge Functional status at discharge: uses cane/walker Time Spent with Patient Time attestation: Total time spent providing and/or coordinating discharge services: Time spent: Greater than 30 minutes Exam Narrative: AF HR 66 RR 16 SpO2 100 BP 135/57 General: male in no acute respiratory distress who is nontoxic appearing, lying semi recumbent in bed. HEENT: Normocephalic. Atraumatic. Extraocular movement intact. Sclera clear and anicteric. No facial asymmetry. Chest: Lungs are clear to auscultation bilaterally. No wheezes or crackles. CV: Heart was regular rate and rhythm. Abd: Abdomen was soft. Nontender. Nondistended. Positive bowel sounds. Ext: No clubbing, cyanosis, or edema. DP pulses bilaterally. Neuro: Patient is alert and oriented x1 (self). Remains in left wrist splint. AROM to all extremities. DS: Data Data Completed and Pending Completed studies during hospitalization: cervical spine mri brain mri head/neck cta Labs on day of discharge: Labs from last 24 hours 09/27/24 09/27/24 09/27/24 11:18 07:39 05:42 WBC 7.2 RBC 4.00 L Hgb 11.6 L Hct 35.4 L MCV 88.5 MCH 29.0 MCHC 32.8 RDW 14.9 H Plt Count 235 MPV 11.1 H Sodium 134 L Potassium 3.6 Chloride 105 Carbon Dioxide 25 Anion Gap 4 BUN 17 Creatinine 1.00 Estim Creat Clear Calc 55 Estimated GFR > 60 Glucose 89 POC Capillary Glucose 129 H 95 Calcium 9.8 Total Bilirubin 1.0 AST 32 ALT 24 Alkaline Phosphatase 48 Total Protein 6.2 L Albumin 3.3 L 09/26/24 09/26/24 20:13 17:03 WBC RBC Hgb Hct MCV MCH MCHC RDW Plt Count MPV Sodium Potassium Chloride Carbon Dioxide Anion Gap BUN Creatinine Estim Creat Clear Calc Estimated GFR Glucose POC Capillary Glucose 148 H 141 H Calcium Total Bilirubin AST ALT Alkaline Phosphatase Total Protein Albumin Discharge Plan Discharge Attending physician on discharge: Martine Martinez Consulting providers: Kristina Landa; Jennifer Modi; Luis Armando Oliva Discharging Clinician: Kristina Landa Anticipated Discharge Date/Time: 09/27/24 12:11 Patient Disposition: Hospice - Medical Facility Activity: as tolerated Diet: as tolerated Discharge Instructions: Patient being discharged back to [facility] Diet and medication to be taken over per hospice upon arrival Patient Instructions: Weakness (DC) Patient Language: Surinamese Stand Alone Forms: General Discharge Information Follow-up/Referrals: Fidelia,Anders Rivas MD [Primary Care Provider] - Discharge Medications: New atorvastatin 40 mg Tablet 80 mg PO DAILY Qty: 30 0RF aspirin 81 mg Tablet,Delayed Release (Dr/Ec) 81 mg PO QAM Qty: 30 0RF Continued losartan 50 mg tablet 25 mg PO DAILY donepezil 10 mg tablet 10 mg PO HS fenofibrate nanocrystallized 145 mg tablet 145 mg PO DAILY cyanocobalamin (vitamin B-12) [Vitamin B-12] 2,500 mcg Tablet, Sublingual 2,500 mcg SUBLINGUAL DAILY cholecalciferol (vitamin D3) [Vitamin D3] 25 mcg (1,000 unit) Capsule 25 mcg PO DAILY furosemide [Lasix] 20 mg tablet 20 mg PO DAILY isosorbide mononitrate 30 mg tablet extended release 24 hr 30 mg PO DAILY metoprolol succinate 25 mg tablet extended release 24 hr 25 mg PO DAILY mirtazapine 7.5 mg tablet 7.5 mg PO QHS ranolazine 500 mg tablet extended release 12 hr 500 mg PO Q12H trazodone 50 mg tablet 50 mg PO QHS memantine 10 mg tablet 10 mg PO BID Date of admission: 09/22/24 20:54 Primary Care Provider: FideliaAnders Admitting Provider: Lucy Durham Attending physician on admission: Lucy Durham Condition: Stable Hospitalist MIPS Heart Failure (Exclusion) Patient has history of Heart Transplant or Left Ventricular Assistive Device?: No IF YES, STOP HERE Heart Failure (Qualifier) Patient has current or prior documentation of LVEF less than or equal to 40%, or mod/servere depressed LVSF?: No IF NO, STOP HERE
== END 2024-09-27 14:40 | disposition hospice, inpatient (51) | DRG 57 ==
LOC: ANHED 19:39 → ANHIMU 21:34 → ANH3MEDSUR 09-26 06:52 → ANHIMU 09-28 16:16
PROVIDERS: Emergency Medicine; Admitting Provider General Practice; Emergency Provider Emergency Medicine; PCP Internal Medicine; Visit Provider Student in an Organized Health Care Education/Training Program
DX: G91.2 (Idiopathic) normal pressure hydrocephalus (principal); N17.9 Acute kidney failure, unspecified; F02.818 Dementia in other diseases classified elsewhere, unspecified severity, with other behavioral disturbance; E44.0 Moderate protein-calorie malnutrition; R41.82 Altered mental status, unspecified; R29.898 Other symptoms and signs involving the musculoskeletal system; E86.0 Dehydration; G30.9 Alzheimer's disease, unspecified; E11.9 Type 2 diabetes mellitus without complications; E78.00 Pure hypercholesterolemia, unspecified; G56.32 Lesion of radial nerve, left upper limb; M21.332 Wrist drop, left wrist; M54.2 Cervicalgia; G89.29 Other chronic pain; R29.707 NIHSS score 7; Z87.442 Personal history of urinary calculi; Z68.24 Body mass index [BMI] 24.0-24.9, adult; Z51.5 Encounter for palliative care
CPT/HCPCS: 36415; 70496; 70498; 70551; 72141; 80048; 80053; 81001; 82948; 83735; 85025; 85027; 85610; 85730; 92507; 92523; 92610; 93005; 93306; 96360; 96375; 97162; 97166; 97530; 97535; 99285; A9270; J7042; J7120; Q9967